=== PATIENT | male | born 1975 | race Caucasian/White ===

== ENCOUNTER 2018-03-06 08:47 | Emergency (ER) | payer MEDICAID, SELFPAY ==
[2018-03-06 08:48] VITALS: BP 148/103; PULSE 115; RESP 16; TEMP 36.4; O2SAT 96; BMI 36.2
--- NOTE | 2018-03-06 09:10 | ED.DCSUM_ITS ---
- ER Visit Summary Date of Service: 03/06/18 Chief Complaint: [] Abdominal pain History of Present Illness: The patient is a 42 M [] complaining of lower abdominal pain from a newly is covered hernia in the inguinal area. Patient denies nausea/vomiting, denies constipation, denies fevers. Reports having a normal bowel movement this morning. 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 He reports he was seen at the urgent care and was referred to a local general surgeon. He has a reported first appointment with that surgeon in 6 days (Dr. Rice). Physical Examination: [] Afebrile, vital signs stable. 42-year-old male no acute distress. Cardiovascular exam is regular rate and rhythm. Lungs are clear to auscultation. Abdomen is soft and nontender. Examination of the inguinal area reveals a small reducible hernia that is mildly tender to palpation. There is a localized tinea cruris rash in the affected area. Remainder of exam is unremarkable. Test Results: [] None. Emergency Department Course and Treatment: [] Patient given naproxen orally for analgesia and instructed to apply ice packs frequently to the affected area. He was instructed to return should his symptoms worsen including pain, nausea/vomiting, constipation. He was instructed to keep his surgical appointment for this coming week. Prescription for naproxen was provided for analgesia as needed. Treatment Plan: [] Follow-up with general surgeon. Naproxen for pain. Disposition: [] Discharge, stable. Impression: [] Reducible inguinal hernia This note was generated with [employer] dictation software. It may contain incorrect words, spelling, and punctuation that were not noted in review of the chart prior to signing ED Disposition - Plan for ED Patient: Chief Complaint: Abd Pain Referrals: Krystle Albright PA [Primary Care Provider] -
--- NOTE | 2018-03-06 09:10 | ED.DEP ---
ED Disposition - Plan for ED Patient: Disposition: Home or Assisted Living Chief Complaint: Abd Pain Instructions: What Is a Hernia? Prescriptions: Naproxen [Naprosyn] 500 mg PO BID PRN PRN #20 tab PRN Reason: Pain Referrals: Krystle Albright PA [Primary Care Provider] -
[2018-03-06] MEDS: Naproxen 500 MG Tablet PO (09:18)
[2018-03-06 09:23] VITALS: BP 134/88; PULSE 72; RESP 16; O2SAT 98
== END 2018-03-06 10:04 | disposition home or self-care (01) ==
LOC: ED 09:23
PROVIDERS: Emergency Provider Emergency Medicine; Family Provider Physician Assistant; PCP Physician Assistant
DX: K40.90 Unilateral inguinal hernia, without obstruction or gangrene, not specified as recurrent (principal); B35.6 Tinea cruris; E11.9 Type 2 diabetes mellitus without complications; Z79.84 Long term (current) use of oral hypoglycemic drugs; Z79.899 Other long term (current) drug therapy; Z72.0 Tobacco use
CPT/HCPCS: 99283

== ENCOUNTER 2018-05-27 16:00 | Emergency (ER) | payer MEDICAID, SELFPAY ==
[2018-05-27 16:01] VITALS: BP 148/91; PULSE 100; RESP 18; TEMP 36.8; O2SAT 95; BMI 35.6
--- NOTE | 2018-05-27 16:34 | ED.VISSUMM ---
- ER Visit Summary Date of Service: 05/27/18 Chief Complaint: Abscess superior left buttock History of Present Illness: The patient is a 43 M who presents because of abscess left buttock region. He states the area is been incised for prior times. He denies fever, chills night sweats. Eyes a traumatic fever, murmur, SBE or being immune suppressed. He states he is compliant with his medication. He does not check his blood sugar on regular basis. He denies polyuria, polydipsia, frequency, urgency or change in vision. Patient states he wants antibiotics. Patient was informed treatment for an abscess especially since there is no evidence cellulitis is incision and drainage. If he will not consent to I&D he was informed that he would sign AGAINST MEDICAL ADVICE since the treatment of choice for an abscess is I&D. Patient informed me that he is going to the [place] and would like to swim. He was informed whether the area is incised or not since it appears that it may spontaneously open he should not be in a pond or small leak. Physical Examination: Vital signs are noted. He is afebrile. There is an abscess superior medial aspect of the left buttocks near the gluteal crease. This is not a pilonidal cyst or abscess. There is no evidence of cellulitis. The area is tender to light touch. HEENT exam is unremarkable. Heart is regular without murmur, gallop or rub. S1 and S2 are normal. Lungs are clear to auscultation with good movement of air bilaterally. Test Results: None Emergency Department Course and Treatment: We will have patient sign consent for I&D. I was informed at 1638 the patient wishes to receive medicine for light sedation. She was informed that sedation is not an option since he drank prior to arrival. Furthermore the area of involvement is less than 1 cm and local anesthesia is appropriate. The area was anesthetized with 2.5 cc normal saline. An incision was made with drainage of approximately 1 cc of purulent material. Blunt dissection was undertaken. There is no surrounding induration or erythema to suggest cellulitis. The cavity is small. We will have nurse apply dressing and since there is no evidence cellulitis he has no systemic symptoms antibiotics were not prescribed. Treatment Plan: Appropriate home-going instructions for incision and drainage of subcutaneous abscess Disposition: Discharged home in stable improved condition Impression: Small subcutaneous left buttocks abscess This note was generated with Dragon dictation software. It may contain incorrect words, spelling, and punctuation that were not noted in review of the chart prior to signing ED Disposition - Plan for ED Patient: Disposition: Home or Assisted Living Chief Complaint: Abscess Instructions: ED Abscess IandD Referrals: Krystle Albright PA [Primary Care Provider] - As Needed Omi Rice MD [STAFF PHYSICIAN] - 2 Days for wound check
== END 2018-05-27 17:18 | disposition home or self-care (01) ==
PROVIDERS: Emergency Provider Emergency Medicine; Family Provider Physician Assistant; PCP Physician Assistant
DX: L02.31 Cutaneous abscess of buttock (principal); E11.9 Type 2 diabetes mellitus without complications; E66.9 Obesity, unspecified; Z79.84 Long term (current) use of oral hypoglycemic drugs
CPT/HCPCS: 10060; 10080; 99283

== ENCOUNTER 2018-08-15 22:14 | Emergency (ER) | payer SELFPAY ==
[2018-08-15 22:15] VITALS: BP 139/84; PULSE 75; RESP 15; TEMP 36.7; BMI 34.7
--- NOTE | 2018-08-15 23:27 | ED.VISSUMM ---
- ER Visit Summary Date of Service: 08/15/18 Chief Complaint: Right knee pain History of Present Illness: The patient is a 43 M presenting for evaluation secondary to right knee pain. Patient reports that over the course of the last 3-4 days he has had a onset of right-sided knee pain. He reports that this feels similar to when he injured his meniscus. He reports that he has had meniscus surgery in both knees as recently as 10 years ago. Patient reports that this pain was atraumatic, and is associated with swelling that is worse throughout the course of the day. Denies any presence of fevers chills night sweats recent injections IV drug use or recent surgeries. Patient states he has been using a wrap as well as ibuprofen for this with some minimal relief. Physical Examination: Physical exam unremarkable except for examination of the right lower extremity. 2+ posterior tibial pulses bilaterally symmetric. Right knee exam shows a minimal joint effusion with no evidence of overlying warmth or erythema. No pain with short arc range of motion. There is some medial joint line tenderness. No evidence of laxity with Fabiola posterior drawer varus or valgus stress. Remainder of physical otherwise unremarkable. Emergency Department Course and Treatment: Patient presented for evaluation secondary to right knee pain. He has normal vital signs, and no stigmata of a infected joint I do not believe the workup for that is necessary. He does have a mild joint effusion, and this seems more soft tissue especially since there was not any sort of injury mechanism associated with this. Patient will be provided with a course of anti-inflammatories and follow-up with orthopedics for more definitive imaging as he likely needs MRI to evaluate his soft tissue structures in his knee. Patient was referred to Dr. Jeffrey Pitts. Disposition: Discharge Impression: 1. Right knee sprain This note was generated with [employer] dictation software. It may contain incorrect words, spelling, and punctuation that were not noted in review of the chart prior to signing ED Disposition - Plan for ED Patient: Disposition: Home or Assisted Living Chief Complaint: Lower Extremity Injury Diagnosis: Right knee sprain Instructions: ED Meniscal Injury Knee Poss Prescriptions: Naproxen [Naprosyn] 500 mg PO BID PRN #20 tab Referrals: Krystle Albright PA [Primary Care Provider] - Jeffrey Pitts MD [STAFF PHYSICIAN] - As soon as possible
[2018-08-15 23:51] VITALS: PULSE 82; RESP 20
[2018-08-15] MEDS: HYDROcodone Bitartrate/Apap 5/325 Tablet PO (23:51)
== END 2018-08-16 00:04 | disposition home or self-care (01) ==
PROVIDERS: Emergency Provider Emergency Medicine; Family Provider Physician Assistant; PCP Physician Assistant
DX: S83.91XA Sprain of unspecified site of right knee, initial encounter (principal); X58.XXXA Exposure to other specified factors, initial encounter; Y93.9 Activity, unspecified; Y92.9 Unspecified place or not applicable; Y99.9 Unspecified external cause status; E11.9 Type 2 diabetes mellitus without complications; Z79.84 Long term (current) use of oral hypoglycemic drugs
CPT/HCPCS: 99282

== ENCOUNTER 2019-08-05 16:41 | Emergency (ER) | payer SELFPAY ==
[2019-08-05 16:41] VITALS: BP 117/70; PULSE 93; RESP 16; TEMP 36.6; O2SAT 98; BMI 34.7
--- NOTE | 2019-08-05 16:45 | ED.VIS.GEN ---
History of Present Illness Chief Complaint: Upper Extremity Injury Informant: Patient Onset: Today Context: Sudden Onset Timing: Continuous Current Severity: Moderate Maximum Severity: Moderate Narrative: Patient is right-hand dominant male who presents with injury to his right fifth finger. Patient states he was climbing out of a front perforator loader. He lost his balance and slipped. He struck the end of his right hand. He states he felt like something popped. Since then, he is a little pain in the pinky and difficulty extending it because of pain. Patient is otherwise healthy. He denies other injury. He did not strike his head. He denies loss of consciousness. He presented here immediately. Prior similar symptoms: No Recent Illness/Hospitalization: No Past Medical History - Allergies and Home Meds Allergies/Adverse Reactions: Allergies No Known Allergies Allergy (Verified 08/15/18 22:17) Primary Care Physician: Jeffrey Pitts MD [STAFF PHYSICIAN] - Prior records reviewed: Yes Past Medical History: None Smoking Status: Current every day smoker Review of Systems General: Denies: Chills, Fever, Sweats Eyes: Denies: Visual changes - bilaterally, Diplopia ENT: Denies: Rhinorrhea, Sore throat Cardiovascular: Denies: Chest pain, Palpitations Respiratory: Denies: Dyspnea, Cough, Dyspnea on exertion Gastrointestinal: Denies: Abdominal pain, Nausea, Vomiting, Diarrhea, Melena, Hematochezia Genitourinary: Denies: Dysuria, Hematuria, Frequency Musculoskeletal: Denies: Back pain, Extremity Pain Skin: Denies: Rash, Wounds Neurological: Denies: Headache, Weakness, Numbness Physical Exam Vital Signs/Narrative: Vital Signs Temp Pulse Resp BP Pulse Ox 08/05/19 16:41 98 F 93 16 117/70 98 Inital Vital Signs reviewed: Yes General: Well nourished, Well developed, No Acute Distress Head: Normocephalic, Atraumatic Eyes: Perrl, EOMI ENT: Moist mucous membranes, No rhinorrhea Neck: Supple, Nontender Cardiovascular: Regular rate, Regular rhythm, No murmurs Respiratory: No distress, CTA bilaterally, Chest nontender Abdomen: Soft, Nontender, Nondistended, Normal bowel sounds Back: Nontender, Normal Inspection Extremities: No edema, Tenderness, - - Tenderness over the right fifth phalanges. Held in flexion. Cap refill normal. Two-point preserved. Skin: Normal color, No rash Neurological: Alert, Oriented x3, Cranial nerves II-XII grossly intact, Normal Strength, Normal Sensation Psychological: Normal affect, Normal Mood Diagnostic/Tx/Re-eval Clinical Impression(s) from Imaging Studies Hand X-Ray 08/05/19 16:50 IMPRESSION: Flexion deformity at the PIP joint fifth finger. This suggests mild volar subluxation at the PIP joint. Correlate clinically at 1706 Reported and signed by: Alondra Olsen DO Electronically Signed: Alondra Olsen DO at 17:05 EDT Tel , Service support , - Medical Decision Making Clinically, the patient's symptoms did seem most consistent with dislocation at the PIP joint. He was held in flexion. His sensation was preserved. X-rays were difficult to interpret given the flexion, but looks like subluxation versus dislocation. His clinical exam was consistent with dislocation. Patient was prepped in a sterile fashion. A digital block was performed with 9 cc of bupivacaine at the base of the fifth finger. Once the patient had anesthesia, it was reduced. He had immediate pain relief and was able to flex and extend without issue. The patient was placed in a AlumaFoam splint. He will be given outpatient orthopedic follow-up. He will be discharged home. Impression 1. Dislocation right fifth PIP with reduction 2. Digital block ED Disposition - Plan for ED Patient: Instructions: Dislocated Finger Prescriptions: Hydrocodone Bitart/Apap 5-325 [[place] 5MG-325MG] 1 tab PO Q6H PRN PRN 2 Days #6 tab PRN Reason: Pain Prescription Printed Referrals: Jeffrey Pitts MD [STAFF PHYSICIAN] -
--- NOTE | 2019-08-05 16:50 | RAD_ITS ---
HISTORY:right hand pain. attention 5th digit right hand pain. attention 5th digit COMPARISON: None FINDINGS: # of images incl. paperwork: 3 XR Hand Min 3 Views: Right BONE AND JOINTS: there is no evidence of an acute fracture. There is a flexion deformity that is seen at the proximal interphalangeal joint of the fifth finger with questionable mild volar subluxation. Correlate clinically Suspect prior trauma involving the ulnar styloid SOFT TISSUES: Unremarkable. No radiopaque foreign body. RAD/Hand Min 3 Views IMPRESSION: Flexion deformity at the PIP joint fifth finger. This suggests mild volar subluxation at the PIP joint. Correlate clinically at 1706 Reported and signed by: Alondra Olsen DO Electronically Signed: Alondra Olsen DO at 17:05 EDT Tel , Service support ,
[2019-08-05] MEDS: HYDROcodone Bitartrate/Apap 5/325 Tablet PO (17:03)
[2019-08-05] MEDS: Bupivacaine Mpf 0.5% 30 ML VIAL INFILT (17:48)
== END 2019-08-05 17:49 | disposition home or self-care (01) ==
LOC: ED 17:19
PROVIDERS: Emergency Provider Emergency Medicine; Family Provider Physician Assistant; PCP Physician Assistant
DX: S63.286A Dislocation of proximal interphalangeal joint of right little finger, initial encounter (principal); W01.10XA Fall on same level from slipping, tripping and stumbling with subsequent striking against unspecified object, initial encounter; Y93.9 Activity, unspecified; Y92.9 Unspecified place or not applicable; Y99.9 Unspecified external cause status; F17.200 Nicotine dependence, unspecified, uncomplicated
CPT/HCPCS: 26770; 73130; 99283

== ENCOUNTER 2020-01-08 18:47 | Emergency (ER) | payer SELFPAY ==
[2020-01-08 18:47] VITALS: BP 161/108; PULSE 95; RESP 18; TEMP 37.3; O2SAT 96; BMI 29.0
--- NOTE | 2020-01-08 20:05 | ED.DEP ---
ED Disposition - Plan for ED Patient: Instructions: Dental Pain Prescriptions: Hydrocodone Bitart/Apap 5-325 [[place] 5MG-325MG] 1 tablet PO Q6H PRN PRN 2 Days #6 tablet PRN Reason: Pain Referrals: Krystle Albright PA [Primary Care Provider] -
--- NOTE | 2020-01-08 20:17 | ED.VISSUMM ---
- ER Visit Summary Date of Service: 01/08/20 Chief Complaint: Dental pain History of Present Illness: The patient is a 44 M presenting with dental pain. This started on . He was seen by his dentist on and started on amoxicillin for gingivitis. Continues to have pain in the left lower teeth. He has been taking ibuprofen at home. He denies fever or other complaints. Has a follow-up appointment with his dentist on Friday. Physical Examination: Vitals are stable. Patient is afebrile. Alert no acute distress. HEENT exam left lower molar tender to palpation with no surrounding fluctuance. No sublingual edema. Neck is supple. Lungs are clear and equal bilaterally. Heart is regular rate and rhythm. Extremities are unremarkable. Skin is warm and dry. Remainder of exam is unremarkable. Emergency Department Course and Treatment: Patient was given short course of [place]. Advised to continue amoxicillin until complete. Advised to follow-up with his dentist. Advised return to ED for worsening complaints. Disposition: Discharge home Impression: Odontalgia This note was generated with [employer] dictation software. It may contain incorrect words, spelling, and punctuation that were not noted in review of the chart prior to signing ED Disposition - Plan for ED Patient: Instructions: Dental Pain Prescriptions: Hydrocodone Bitart/Apap 5-325 [[place] 5MG-325MG] 1 tab PO Q6H PRN PRN 2 Days #6 tab PRN Reason: Pain Prescription Printed Referrals: Krystle Albright PA [Primary Care Provider] -
--- NOTE | 2020-01-08 21:02 | ED.RN ---
PATIENT LEFT WITHOUT RCVNG NORCO X 1 TAB
[2020-01-08 21:03] VITALS: PULSE 95; RESP 18; O2SAT 96
== END 2020-01-08 21:04 | disposition home or self-care (01) ==
LOC: ED 19:22
PROVIDERS: Emergency Provider Emergency Medicine; PCP Physician Assistant
DX: K08.89 Other specified disorders of teeth and supporting structures (principal); Z72.0 Tobacco use
CPT/HCPCS: 99282

== ENCOUNTER 2021-10-29 11:36 | Emergency (ER) | payer SELFPAY ==
[2021-10-29 11:37] VITALS: BP 145/94; PULSE 113; RESP 16; TEMP 36.1; O2SAT 99; BMI 29.0
--- NOTE | 2021-10-29 13:51 | EDS_ITS ---
HPI History of Present Illness HPI Narrative: Patient presents with pain and swelling to his right elbow and forearm that has been getting worse over the past 5 days. Patient noted some redness and warmth over the medial aspect of his right elbow. 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 Patient states that he woke up 5 days ago and started having pain in his right elbow. Patient denies any fevers or chills. Patient denies any discharge or drainage. Patient states the pain is sharp and burning. Patient states it is worse with movement. Patient denies any paresthesias or weakness. Patient denies any trauma or injury. Chief Complaint: Upper Extremity Injury Informant: patient Onset/Context/Timing Onset: Days (5) Context: Gradual Onset Timing: Continuous Quality of Pain: Sharp and Burning Location: Right elbow Worsened by: Movement Relieved by: Nothing Associated Symptoms Associated Symptoms: Negative for Parasthesia and Weakness PFSH [facility] Medical History (Updated 10/29/21 @ 16:[address] Aiden Joseph DO) Diabetes Home Medications glimepiride 4 mg PO DAILY 05/27/18 [History Last Taken Unknown] metformin 500 mg PO DAILY 05/27/18 [History Last Taken Unknown] cephalexin 500 mg PO Q6 #40 capsule 10/29/21 [Rx Last Taken Unknown] Allergy/AdvReac Type Severity Reaction Status Date / Time No Known Allergies Allergy Verified 10/29/21 11:37 Surgical History History of back surgery Hx of knee surgery Social History Smoking Status: Current every day smoker tobacco type: cigarettes ROS ROS ED Constitutional Constitutional ED: Denies chills or fever(s) Eyes Eyes: Denies blurry vision or change in vision ENT ENT ED: Denies rhinorrhea or sore throat Cardiovascular Cardiovascular: Denies chest pain or palpitations Respiratory/Chest Respiratory/Chest: Denies cough or dyspnea Gastrointestinal Gastrointestinal: Denies nausea or vomiting Genitourinary Genitourinary ED: Denies dysuria or hematuria Musculoskeletal Musculoskeletal: Reports back pain; Denies neck pain Integumentary Denies abscess or rash Neurologic Neurologic: Denies headache(s) or weakness Allergic/Immunologic Allergic/Immunologic ED: Denies mouth swelling or urticaria EXAM Physical Exam Const Vital Signs: 10/29/21 11:37 Temperature 96.9 F L Temperature Source Temporal Pulse Rate 113 H Respiratory Rate 16 Blood Pressure 145/94 H Blood Pressure Mean 111 Pulse Ox 99 Oxygen Delivery Method Room Air Positive well nourished and well developed General Appearance ED: well developed Neck full ROM and supple Extremity Extremity Narrative: There is erythema and warmth of the medial aspect of the right elbow and forearm. There is no foreign body visualized. There is no puncture wound. There is no laceration. There is no evidence of any abscess. There is no induration. Range of motion was slightly limited in complete flexion and complete extension of the right elbow secondary to pain. Radial pulses are equal bilateral. Sensation was intact to light touch in all digits. Capillary refill was less than 2 seconds in all digits. Neuro oriented x3, CN's II-XII intact bilaterally, moves all extremities, no focal motor deficits and no sensory deficits noted Sensorium / Orientation: alert Psych mental status grossly normal MDM MDM MDM Narrative Medical decision making narrative: Patient was given a dose of Ancef here. CBC and basic metabolic profile were within normal limits. X-rays of the right elbow were obtained. There are 3 views. On my interpretation, there is no acute foreign body or fracture or dislocation. Radiologist also interpreted the x-rays and agrees. Patient was advised of his findings. Patient was given a prescription for Keflex. Patient was instructed to ice and elevate the right arm. Patient was instructed to follow-up with his primary care physician in 5 to 7 days. Patient understood and was agreeable with the plan. All questions were answered. Lab Data Attestation: I reviewed the patient's lab results. Discharge Plan Triage Chief Complaint: Upper Extremity Injury ED Provider: Aiden Joseph Dx/Rx/DC Orders Clinical Impression: Cellulitis of right elbow Instructions: ED Cellulitis Prescriptions: New cephalexin [cephalexin] 500 MG capsule 500 mg PO Q6 Qty: 40 RF: 0 No Action glimepiride 4 MG tablet 4 mg PO DAILY RF: 0 metformin 500 MG tablet 500 mg PO DAILY RF: 0 Primary Care Provider: Krystle Albright Referrals: Krystle Albright PA [Primary Care Provider] - 5-7 Days Disposition Disposition: Home, Self Care
[2021-10-29 14:39] VITALS: RESP 16
[2021-10-29 14:42] LABS: Absolute Lymphocyte Count 1.03 X10^3/uL (0.83-4.51); Absolute Neutrophil Count 3.1 X10^3/uL (2.0-7.7); Basophil# 0.06 X10^3/uL; Basophil% 1.3 % (0-1); Eosinophil# 0.04 X10^3/uL; Eosinophils% 0.8 % (0-5); Hematocrit 41.6 % (40-54); Hemoglobin 14.6 g/dL (13.0-16.5); Lymphocyte # 1.03 X10^3/ul (0.83-4.51); Lymphocyte % 21.8 % (19-41); Mean Corp Hgb Conc 35.1 g/dL (32-36); Mean Corpuscular Hgb 30.7 pg (27.0-32.0); Mean Corpuscular Volume 87.6 fL (80-94); Mean Platelet Vol. 9.5 fl (6.2-12.0); Monocyte# 0.49 X10^3/uL; Monocyte% 10.4 % (0-10); NRBC Flagged by Analyzer 0 % (0-5); Neutrophil # 3.07 X10^3/uL (2.7-7.7); Neutrophil % 65.1 % (47-70); Platelet Count 211 K/mm3 (150-450); RBC Distribution Width CV 11.7 % (11.6-14.6); RBC Distribution Width SD 37.6 fl (35.1-43.9); Red Blood Count 4.75 M/mm3 (4.6-6.2); White Blood Count 4.7 K/mm3 (4.4-11.0)
[2021-10-29] MEDS: Cefazolin 1 GM/50 ML BAG IV (14:42)
[2021-10-29 14:57] LABS: Anion Gap 6 (5-15); BUN 13 mg/dL (7-18); Calcium,Total 9.1 mg/dL (8.5-10.1); Chloride 104 mmol/L (98-107); Creatinine, Serum 0.81 mg/dL (0.70-1.30); EST Glomerular Filtration Rate 109 mL/min (>60); Est Glom Filt Rate - Afr Amer 132 mL/min (>60); Estimated Creatinine Clearance 131.52 ml/min; Glucose 197 mg/dL (74-106); Potassium 3.4 mmol/L (3.5-5.1); Sodium Level 138 mmol/L (136-145)
--- NOTE | 2021-10-29 15:00 | RAD_ITS ---
STUDY: X-RAY - RIGHT ELBOW REASON FOR EXAM: Male, 46 years old. Injury/Pain TECHNIQUE: 3 view(s) of the elbow. COMPARISON: None. FINDINGS: Normal visualized humerus, radius and ulna. Normal radiocapitellar and ulnotrochlear articulations. The soft tissue structures are unremarkable. RAD/Elbow min 3 Views IMPRESSION: Normal x-ray examination of the elbow. Electronically Signed: Sy Leonard MD at 15:29 EST , Service support ,
--- NOTE | 2021-10-29 15:23 | ED.RN ---
PT MOVED FOR TRAUMA 1 TO [facility] 1 D/T AND UNRESPONSIVE PT THAT [facility] IS OUT ON. PT COMPLAINING AND REFUSING TO SIT IN THE [facility] D/T BACK SURGERY, THIS RN APOLOGIZED. PT CONTINUES TO REFUSE TO SIT.
--- NOTE | 2021-10-29 15:26 | ED.RN ---
PT IS CURRENTLY SITTING IN CHAIR.
[2021-10-29 16:36] VITALS: RESP 18
== END 2021-10-29 16:37 | disposition home or self-care (01) ==
PROVIDERS: Emergency Provider Emergency Medicine; PCP Physician Assistant
DX: L03.113 Cellulitis of right upper limb (principal); F17.210 Nicotine dependence, cigarettes, uncomplicated
CPT/HCPCS: 73080; 80048; 85025; 96365; 99284; J7050; A4216

== ENCOUNTER 2022-11-19 20:16 | Emergency (ER) | payer OTHER, SELFPAY ==
[2022-11-19 20:17] VITALS: BP 163/95; PULSE 90; RESP 15; TEMP 36.2; O2SAT 97; BMI 26.4
--- NOTE | 2022-11-19 20:44 | EDS_ITS ---
HPI History of Present Illness Chief Complaint: Cellulitis Narrative Narrative: 47-year-old male past medical history of diabetes presents with pain and swelling of his right foot at the base of his third and fourth digits. He denies any fevers or chills. No nausea or vomiting. He has had cellulitis in areas other than his foot for which he has been treated with cephalexin. He states over the last 2 days he noticed swelling and mild redness in between his toes, mainly between toes numbers 3 and 4 and pain on the ball of his foot in that area. It feels swollen to him. It is worse with weightbearing and walking. He denies any injury to the area. [facility] Medical History Diabetes Home Medications glimepiride 4 mg tablet 4 mg PO DAILY 05/27/18 [History Last Taken Unknown] metformin 500 mg tablet 500 mg PO DAILY 05/27/18 [History Last Taken Unknown] cephalexin 500 mg capsule 500 mg PO Q6 #40 CAPSULES 10/29/21 [Rx Last Taken Unknown] cephalexin 500 mg tablet 500 mg PO 4X/DAY #40 tabs 11/19/22 [Rx Last Taken Unknown] Allergy/AdvReac Type Severity Reaction Status Date / Time No Known Allergies Allergy Verified 11/19/22 20:20 Surgical History History of back surgery Hx of knee surgery Social History Smoking Status: Current every day smoker tobacco type: cigarettes ROS ROS ED ROS Narrative Constitutional: No fever, no chills. HEENT: No sore throat. No neck pain. No loss of vision. No rhinorrhea. Cardiovascular: No chest pain. No palpitations. No pedal edema. Respiratory: No cough, no shortness of breath. Abdominal: No abdominal pain. No nausea. No vomiting. Genitourinary: No dysuria. No hematuria. Musculoskeletal: No myalgias. Right foot pain and swelling at base of third and fourth digits. Neurologic: No headaches. No dizziness. No lightheadedness. Skin: No rash. No change in color. Psychiatric: No depression. No anxiety. EXAM Physical Exam Narrative Exam Narrative: Afebrile. Vital signs noted. Nontoxic-appearing. HEENT: Normocephalic. Atraumatic. PERRL, EOMI. Neck soft and supple. No point tenderness or step off. Cardiovascular: Regular rate and rhythm. No murmurs, rubs, or gallops appreciated. Respiratory: No tachypnea. Lungs clear to auscultation bilaterally. Gastrointestinal: Abdomen soft, nontender, with normoactive bowel sounds. No rebound or guarding. Neurological: Awake. Alert. Nonfocal, nonlateralizing. Skin: No rash. Normal color. No pallor. In between the digits on his right foot appears mild skin breakdown and erythema with tenderness to palpation. No purulent drainage. Good capillary refill. Musculoskeletal: No pedal edema. Full range of motion extremities. Palpable dorsalis pedis pulse right foot. Const Vital Signs: 11/19/22 20:17 Temperature 97.2 F L Temperature Source Temporal Pulse Rate 90 Respiratory Rate 15 Blood Pressure 163/95 H Blood Pressure Mean 117 Pulse Ox 97 Oxygen Delivery Method Room Air MDM MDM MDM Narrative Medical decision making narrative: I feel that the patient may have mild tinea pedis which caused skin breakdown between his toes which was a portal of entry for his cellulitis. He has mild erythema in between the toes and extends minimally into the foot. There is no crepitance and I feel that he can be treated with cephalexin. Given the hour the day, he was given his dose here in the emergency department and a prescription written for the next 10 days to take 4 times daily. He will follow-up with his primary care provider. I feel he can be discharged safely home with follow-up. Return instructions were reviewed. Disposition is discharged home in stable condition. Discharge Plan Triage Chief Complaint: Cellulitis ED Provider: Shayne Duffy Dx/Rx/DC Orders Clinical Impression: Cellulitis of foot, right, Tinea pedis Instructions: ED Cellulitis, ED Athlete's Foot Prescriptions: New cephalexin 500 mg tablet 500 mg PO 4X/DAY Qty: 40 0RF No Action glimepiride 4 MG tablet 4 mg PO DAILY metformin 500 MG tablet 500 mg PO DAILY cephalexin [cephalexin] 500 MG capsule 500 mg PO Q6 Qty: 40 0RF Primary Care Provider: Krystle Albright Referrals: Krystle Albright PA [Primary Care Provider] - 5-7 Days Disposition Disposition: Home, Self Care
[2022-11-19] MEDS: Cephalexin 250 MG Capsule 500 MG PO (20:52)
== END 2022-11-19 20:56 | disposition home or self-care (01) ==
PROVIDERS: Emergency Provider Emergency Medicine; PCP Physician Assistant; Visit Provider Emergency Medicine
DX: L03.115 Cellulitis of right lower limb (principal); B35.3 Tinea pedis; F17.210 Nicotine dependence, cigarettes, uncomplicated
CPT/HCPCS: 99283

== ENCOUNTER 2022-12-18 10:58 | Emergency (ER) | payer OTHER, SELFPAY ==
[2022-12-18 10:58] VITALS: BP 165/103; PULSE 56; RESP 18; TEMP 35.5; O2SAT 98; BMI 30.7
--- NOTE | 2022-12-18 11:24 | ED.VIS.LOWEX ---
HPI History of Present Illness Chief Complaint: Lower Extremity Injury Informant: patient Narrative Narrative: Persistent pain right foot for the past 3 weeks. He was seen emergency department treated for cellulitis. There is no clear injuries. Concern potential foreign body. No imaging at that time. He was put on antibiotics for which she finished the redness improved pain has continued he is a diabetic. Unable to get in with his PCP. Using ibuprofen no relief. Reviewing records from the last month from notes there is erythema concerning for slight tinea with cracking of skin which was concerning at that time. He is on a 10-day course of Keflex. [facility] Medical History Diabetes Home Medications glimepiride 4 mg tablet 4 mg PO DAILY 05/27/18 [History Last Taken Unknown] metformin 500 mg tablet 500 mg PO DAILY 05/27/18 [History Last Taken Unknown] cephalexin 500 mg capsule 500 mg PO Q6 #40 CAPSULES 10/29/21 [Rx Last Taken Unknown] cephalexin 500 mg tablet 500 mg PO 4X/DAY #40 tabs 11/19/22 [Rx Last Taken Unknown] cephalexin 500 mg capsule 500 mg PO Q6 #40 caps 12/18/22 [Rx Last Taken Unknown] Allergy/AdvReac Type Severity Reaction Status Date / Time No Known Allergies Allergy Verified 12/18/22 11:00 Surgical History History of back surgery Hx of knee surgery Social History Smoking Status: Current some day smoker tobacco type: cigarettes ROS ROS ED Constitutional Constitutional ED: Denies chills, fever(s) or sweats Eyes Eyes: Denies change in vision ENT ENT ED: Denies dysphagia or sore throat Cardiovascular Cardiovascular: Denies chest pain, leg edema, palpitations or racing heartbeat Respiratory/Chest Respiratory/Chest: Denies cough, dyspnea or dyspnea on exertion Gastrointestinal Gastrointestinal: Denies abdominal pain, diarrhea, nausea or vomiting Genitourinary Genitourinary ED: Denies dysuria, hematuria or urinary frequency Musculoskeletal Musculoskeletal: Reports extremity pain; Denies back pain or neck pain Integumentary Denies rash or wounds Neurologic Neurologic: Denies headache(s), paresthesias or weakness EXAM Physical Exam Const Vital Signs: 12/18/22 10:58 Temperature 96 F L Temperature Source Temporal Pulse Rate 56 L Respiratory Rate 18 Blood Pressure 165/103 H Blood Pressure Mean 123 Pulse Ox 98 Oxygen Delivery Method Room Air Positive well nourished and well developed General Appearance ED: well developed and NAD HEENT Reports moist mucous membranes normocephalic and atraumatic Eyes PERRL, EOMs intact bilaterally and conjunctivae normal General Eye ED: Yes normal appearance of both eyes Neck no lymphadenopathy and supple General: Negative for tenderness Chest Wall Chest: Negative for tenderness Resp normal respiratory effort and normal air movement Effort and Inspection: symmetric chest movement; Negative for respiratory distress Cardio regular rate, regular rhythm and no murmurs Peripheral Pulses: pulses 2+ throughout GI normal to inspection, nondistended, normoactive bowel sounds and non-tender Palpation: Negative for guarding or rebound tenderness present Back/Spine no CVA tenderness and no thoracic nor lumbar tenderness Extremity normal to inspection Extremity Narrative: Right foot: Plantar aspect at the fourth metatarsal tender to palpation. No puncturing, no gross foreign bodies. There is no current erythema or drainage no fluctuance. General Extremety ED: Yes tenderness; Negative for edema General Extremity: Negative for edema Neuro oriented x3 and no sensory deficits noted Sensorium / Orientation: awake and alert Skin no rashes or lesions noted and no wounds MDM MDM MDM Narrative Medical decision making narrative: There is no current erythema for concerns for cellulitis. Have his pain to the local area, differential could be retained foreign body with no infection at this time. Nonspecific foot pain also. X-ray right foot 3 views obtained. This was interpreted by myself shows no radiopaque foreign bodies. Discussed with the patient he will need podiatry follow-up. He states he would like to try another course of antibiotics due to help in him in the past. Risk and benefits with antibiotics. This was sent to his pharmacy podiatry follow-up given. Radiography Diagnostic Testing: Clinical Impression(s) from Imaging Studies Foot X-Ray 12/18/22 11:25 IMPRESSION: Normal x-ray examination of the foot. Electronically Signed: Sy Leonard MD at 12:11 EST , Discharge Plan Triage Chief Complaint: Lower Extremity Injury ED Provider: Demarcus Angela Dx/Rx/DC Orders Clinical Impression: Foot pain, right Instructions: ED Puncture Wound (Foot) Prescriptions: New cephalexin [cephalexin] 500 mg capsule 500 mg PO Q6 Qty: 40 0RF No Action glimepiride 4 MG tablet 4 mg PO DAILY metformin 500 MG tablet 500 mg PO DAILY cephalexin [cephalexin] 500 MG capsule 500 mg PO Q6 Qty: 40 0RF cephalexin 500 mg tablet 500 mg PO 4X/DAY Qty: 40 0RF Primary Care Provider: Krystle Albright Referrals: Kolby Blount DPM [Med Staff - Active Staff] - As soon as possible Krystle Albright PA [Primary Care Provider] - Activity Restrictions/Additional Instructions: X-ray foot does not show any radiopaque foreign bodies. Reported antibiotics help recently therefore taking understand the risks of side effects with antibiotics. Follow-up with Dr. Blount for further imaging or testing as an outpatient for possible foreign bodies. Disposition Disposition: Home, Self Care Discharge Date/Time: 12/18/22 12:37
--- NOTE | 2022-12-18 11:25 | RAD_ITS ---
STUDY: X-RAY - RIGHT FOOT CLINICAL: Male, 47 years old. 3 week history of pain and swelling. TECHNIQUE: 3 view(s) of the foot. COMPARISON: None. FINDINGS: Normal talus, calcaneus, and tarsal bones. Normal visualized subtalar, talonavicular, calcaneocuboid, tarsal and tarsometatarsal articulations. Normal metatarsi. Normal metatarsophalangeal joint of the great toe. Normal tibial and fibular sesamoid bones. Normal interphalangeal joint of the great toe. Normal phalanges of the great toe. Normal second through fifth metatarsophalangeal joints. Normal interphalangeal joints and phalanges of the lesser toes. The soft tissue structures are unremarkable. RAD/Foot min 3 Views IMPRESSION: Normal x-ray examination of the foot. Electronically Signed: Sy Leonard MD at 12:11 EST ,
== END 2022-12-18 12:37 | disposition home or self-care (01) ==
PROVIDERS: Emergency Provider Emergency Medicine; PCP Physician Assistant; Visit Provider Emergency Medicine
DX: M79.671 Pain in right foot (principal); E11.9 Type 2 diabetes mellitus without complications; F17.210 Nicotine dependence, cigarettes, uncomplicated
CPT/HCPCS: 73630; 99282

== ENCOUNTER 2025-08-03 02:19 | Emergency (ER) | payer OTHER, MEDICAID, SELFPAY ==
[2025-08-03 02:21] VITALS: BP 134/95; PULSE 104; RESP 18; TEMP 36.6; O2SAT 99; BMI 29.5
[2025-08-03 02:23] VITALS: BP 134/95; PULSE 104; RESP 18; TEMP 36.6; O2SAT 99
--- NOTE | 2025-08-03 02:38 | EDS_ITS ---
HPI History of Present Illness Chief Complaint: Bite Informant: patient and spouse/S.O. Narrative Narrative: Patient is a 50-year-old male with past medical history of [id number] diabetes. 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 He states that he believes he may have been bitten by a spider in the left ankle a few days ago because he noticed redness and swelling with pain in the area. He states he did not see anything bite him but has had similar events in the past from his work. He states he has been washing the area with soap and water and using Neosporin but the redness and pain is worsening and with concern for infection he comes in for evaluation [facility] Medical History Diabetes Home Medications ?Medication ?Instructions ?Recorded ?Last Taken ?Type glimepiride 4 mg tablet 4 mg PO DAILY 05/27/18 Unkno wn History metformin 500 mg tablet 500 mg PO DAILY 05/27/18 Unk nown History atorvastatin 10 mg tablet (Lipitor) 10 mg PO DAILY 02/22 Unknown History clindamycin HCl 300 mg capsule 300 mg PO 4X/DAY 10 day s #40 08/03/25 Unknown Rx (Cleocin HCl) CAPSULES oxycodone-acetaminophen 5 mg-325 1 tab PO Q6H PRN pain 3 days #12 08/03/25 Unknown Rx mg tablet (Endocet) tabs Allergy/AdvReac Type Severity Reaction Status Date / Time No Known Allergies Allergy Verified 08/03/25 02:21 Surgical History History of back surgery Hx of knee surgery Social History Smoking Status: Current some day smoker tobacco type: cigarettes ROS ROS ED Constitutional Constitutional ED: Denies chills or fever(s) Cardiovascular Cardiovascular: Denies chest pain Respiratory/Chest Respiratory/Chest: Denies cough or dyspnea Gastrointestinal Gastrointestinal: Denies abdominal pain, diarrhea, nausea or vomiting Musculoskeletal Musculoskeletal: Reports other Details: Positive left ankle pain Integumentary Reports other Details: Positive bite left ankle Neurologic Neurologic: Denies headache(s) Hematologic/Lymphatic Hematologic/Lymphatic: Denies easy bleeding or easy bruising EXAM Physical Exam Const Vital Signs: 08/03/25 02:21 08/03/25 02:23 08/03/25 02:44 Temperature 97.8 F 97.8 F 98 F Temperature Source Oral Oral Pulse Rate 104 H 104 H 98 Respiratory Rate 18 18 18 Blood Pressure 134/95 H 134/95 H 112/87 H Blood Pressure Mean 108 108 95 Pulse Ox 99 99 100 Oxygen Delivery Method Room Air Room Air Positive well nourished and well developed General Appearance ED: well developed HEENT HEENT Narrative: Normocephalic atraumatic Eyes PERRL and EOMs intact bilaterally General Eye ED: Negative for scleral icterus Neck supple Resp normal respiratory effort and clear to auscultation bilaterally Cardio regular rate and regular rhythm Extremity Extremity Narrative: Left lower extremity is neurovascularly intact. Along the posterior aspect of his left ankle are 2 excoriated circular wounds with developing scab formation. There is surrounding asymmetric erythema and warmth extending out roughly 1 cm from the wound. There is no obvious retained foreign body or insect or stinger present. There is no obvious induration or fluctuance noted. No discharge present. No lymphangitic streaking. Compartments are soft and compressible going against compartment syndrome. Neuro oriented x3, CN's II-XII intact bilaterally and no sensory deficits noted Sensorium / Orientation: alert Motor Exam: strength 5/5 throughout Psych mental status grossly normal Skin Skin Narrative: Lesions to the posterior aspect of the left ankle as documented above MDM MDM MDM Narrative Medical decision making narrative: Patient arrived to the ER afebrile. He stated he did not see anything bite him but based on his previous work events that this has happened and this feels similar nature. As he is a diabetic without improvement with standard topical care he has concern for developing infection. There is no obvious abscess noted and no signs of systemic infection as he does not have a fever or there is no findings for lymphangitic streaking. Patient also does not have compartment syndrome. I have low concern for Charcot joint or osteomyelitis based on his presentation as well and therefore I do not feel the need for imaging or laboratory study. Based on his history and exam the patient has cellulitis secondary to the insect bite but as he does not have findings for systemic infe ction there is no need for further workup and he can simply be placed on antibiotics and is otherwise safe for discharge History & Record Review Discussion w/independent historian: Patient and Significant other Discharge Plan Triage Chief Complaint: Bite ED Provider: Martin Hollis Dx/Rx/DC Orders Clinical Impression: Infected insect bite of ankle, History of tobacco use, Non-insulin dependent diabetes mellitus Instructions: Cellulitis Dc, ED Infected Insect Bite or Sting Prescriptions: New clindamycin HCl [Cleocin HCl] 300 mg capsule 300 mg PO 4X/DAY 10 Days Qty: 40 0RF oxycodone-acetaminophen [Endocet] 5-325 mg tablet 1 tab PO Q6H PRN (Reason: pain) 3 Days Qty: 12 0RF No Action glimepiride 4 MG tablet 4 mg PO DAILY metformin 500 MG tablet 500 mg PO DAILY atorvastatin [Lipitor] 10 mg tablet 10 mg PO DAILY Primary Care Provider: Care Physician,No Primary Referrals: Krystle Albright PA [Non-Staff] - Activity Restrictions/Additional Instructions: Your history and exam indicate you have an infected insect bite around your ankle. Take the prescribed medication as directed to help resolve this. It would typically take 2 to 3 days for the antibiotic to take effect. If you develop a fever or noticed lymphangitic streaking or the redness persist despite taking your antibiotic please return to the ER for repeat evaluation. Print Language: Martiniquais Disposition Disposition: Home, Self Care Discharge Date/Time: 08/03/25 02:46
--- OUTSIDE RECORDS SUMMARY | 2025-08-03 02:43 | XMS RPT_ITS | CCD ---
Author Organization [facility] Care Team Providers Care Multiple Wire Sawyer Name Role Phone MADINA CHILEL Attending Unavailable MADINA CHILEL Referring Unavailable No, Physician Primary Care Provider Unavailabl e NO, PHYSICIAN Primary Care Unavailable SHRUTHI MURILLO Attending Unavailable Vore II, Dr. Harsha Agee Attending Unav Krystle Stratton Primary Care Unavailable Shayne Duffy Attending Unavailable Krystle Albright Primary Care Unavailable Demarcus Angela Attending Unavailable Krystle Albright PA-C Primary Care Provider [phone] Krystle Albright PA-C Primary Care Provider [phone] OLIVIA RAWLS Referring Unavailable BOY ALBRIGHT Primary Care Unavailable OLIVIA RAWLS Referring Unavailable BOY ALBRIGHT Primary Care Unavailable OLIVIA RAWLS Attending Unavailable BOY ALBRIGHT Primary Care Unavailable BOY ALBRIGHT Primary Care Unavailable OLIVIA RAWLS Referring Unavailable Medications Current Medications Medication Drug Class(es) Dates Sig (Normalized) Sig (Original) Blood-Glucose Meter monitoring kit (1 source) Start: 09-03-2024 End: 09-04-2024 Blood-Glucose Meter monitoring kit Glucose Meter of Choice - Kit - Dx: Other DM Code E11.40 Insulin No Testing 4 times daily 1 Each 09/03/2024 09/04/2024 Active cephalexin 500 mg oral capsule (6 sources) Cephalosporin Antibacterial Start: 06-24-2023 End: 07-01-2023 take 1 capsule by mouth three times daily cephALEXin (KEFLEX) 500 mg capsule Take 1 capsule by mouth three times daily for 7 days. 21 capsule 0 06/24/2023 07/01/2023 Active Start: 11-19-2022 take 500 mg by mouth four times daily Cephalexin Active 500 MG PO 4 TIMES DAILY 40 November 19, 2022 12:00am Start: 10-29-2021 take 500 mg by mouth every six hours Cephalexin Active 500 MG PO EVERY 6 HOURS December 18, 2022 12:00am Comment on above: Take [address] [facility] three times daily for 7 days. COMPOUNDED PRESCRIPTION (12 sources) Start: 02-09-2018 COMPOUNDED PRESCRIPTION Check blood sugar in am fasting and before dinner 1 Device 02/09/2018 Active Start: 02-09-2018 COMPOUNDED PRE SCRIPTION Check blood sugar in am fasting and before dinner 1 Device 0 02/09/2018 Active Comment on above: Check blood sugar in am fasting and before dinner 0.5 ml dulaglutide 1.5 mg/ml auto-injector (11 sources) GLP-1 Receptor Agonist Start: 023 End: inject 0.75 mg by subcutaneous injection every week dulaglutide (TRULICITY) 0.75 mg/0.5 mL pen injector Indications: Type 2 diabetes mellitus with diabetic neuropathy, without long-term current use of insulin (HCC) Inject 0.75 mg subcutaneously one time a week. Inject dose once per week. Discard Pen After 4 Each 5 08/27/2024 02/23/2025 Active Comment on above: Inject 0.75 mg subcu taneously one time a week. Inject dose once per week. Discard Pen After DULoxetine 30 mg delayed release oral capsule (4 sources) Serotonin and Norepinephrine Reuptake Inhibitor Start: 024 End: 025 take 1 capsule by mouth once daily DULoxetine (CYMBALTA) 30 mg capsule Indications: Depressive disorder Take 1 capsule by mouth once daily. 90 capsule 3 08/30/2024 08/30/2025 Active Start: 06-15-2021 End: 04-21-2023 take 1 capsule by mouth once daily DULoxetine (CYMBALTA) 30 mg capsule Indications: Depressive disorder Take 1 capsule by mouth once daily. 30 capsule 06/15/2021 04/21/2023 Discontinued glimepiride 4 mg oral tablet (16 sources) Sulfonylurea Start: 02-24-2024 End: 08-27-2025 take 1 tablet by mouth once daily at breakfast glimepiride (AMARYL) 4 mg tablet Indications: Type 2 diabetes mellitus with diabetic neuropathy, without long-term current use of insulin ([facility]) Take 1 tablet by mouth daily with breakfast. 90 tablet 3 08/27/2024 08/27/2025 Active Start: 04-15-2023 End: 10-06-2023 take 1 tablet by mouth once daily at breakfast glimepiride (AMARYL) 4 mg tablet Indications: Type 2 diabetes mellitus with diabetic neuropathy, without long-term current use of insulin ([facility]) Take 1 tablet by mouth daily with breakfast. 90 tablet 0 10/06/2023 Active Start: 05-27-2018 take 4 mg by mouth once daily Glimepiride Active 4 MG PO DAILY May 26, 2018 11:00pm Comment on above: Take 1 tablet by iftikhar th daily with breakfast. glipiZIDE 5 mg oral tablet (1 source) Sulfonylurea Start: 06-08-20 End: 07-08-20 take 1 tablet by mouth twice daily before mealtime glipiZIDE (GLUCOTROL) 5 MG tablet Take 1 (one) tablet (5 mg total) by mouth 2 (two) times a day before meals . 60 tablet 0 06/08/2019 07/08/2019 Active 24 hr metFORMIN hydrochloride 500 mg extended release oral tablet (18 sources) Biguanide Start: 02-24-20 End: 08-27-20 take 2 tablets by mouth once daily at breakfast metFORMIN ER (GLUCOPHAGE XR) 500 mg 24 hr tablet Indications: Type 2 diabetes mellitus with diabetic neuropathy, without long-term current use of insulin (HCC) Take 2 tablets by mouth daily with breakfast. 60 tablet 07/02/2024 Active Start: 04-15-2023 End: 10-06-2023 take 2 tablets by mouth once daily at breakfast metFORMIN ER (GLUCOPHAGE XR) 500 mg 24 hr tablet Indications: Type 2 diabetes mellitus with diabetic neuropathy, without long-term current use of insulin (HCC) Take 2 tablets by mouth daily with breakfast. 180 tablet 0 10/06/2023 Active Start: 07-13-2021 End: 02-05-2022 take 2 tablets by mouth once daily at breakfast metFORMIN ER (GLUCOPHAGE XR) 500 mg 24 hr tablet Indications: Type 2 diabetes mellitus with diabetic neuropathy, without long-term current use of insulin ([facility]) Take 2 tablets by mouth daily with breakfast. 180 tablet 1 07/13/2021 02/05/2022 Discontinued Start: 05-27-2018 take 500 mg by mouth once mohan y Metformin Active 500 MG PO DAILY May 27, 2018 3:32pm Start: 06-19-2015 End: 05-27-2018 take 500 mg by mouth twice daily Metformin Discontinue d 500 MG PO TWICE A DAY 60 June 18, 2015 11:00pm May 27, 2018 3:32pm Comment on above: Take [address] [facility] daily with breakfast. rosuvastatin calcium 5 mg oral tablet (5 sources) HMG-CoA Reductase Inhibitor Start: 08-27-20 End: 08-27-20 take 1 tablet by mouth once daily rosuvastatin (CRESTOR) 5 mg tablet Indications: Diabetes mellitus due to underlying condition with hyperosmolarity without coma, without long-term current use of insulin (HCC) Take 1 tablet by mouth once daily. 90 tablet 3 08/27/2024 08/27/2025 Active Completed/Discontinued Medications Medication Drug Class(es) Dates Sig (Normalized) Sig (Original) acetaminophen 325 mg / HYDROcodone bitartrate 5 mg oral tablet (4 sources) Opioid Agonist Start: 01-08-2020 End: 01-10-2020 take 1 tablet by mouth every six hours as needed Hydrocodone-Acetami nophen Discontinued 1 TABLET PO EVERY 6 HOURS NEEDED 6 2 January 08, 2020 January 10, 2020 12:08am Start: 08-05-2019 End: 08-13-2019 take 1 tablet by mouth every six hours as needed Hydrocodone-Acetaminophen Discontinued 1 TABLET PO EVERY 6 HOURS NEEDED 6 2 August 05, 2019 August 12, 2019 11:10pm betamethasone 0.5 mg/ml / clotrimazole 10 mg/ml topical cream (1 source) Azole Antifungal, Corticosteroid Start: 07-13-2021 End: 07-27-2021 clotrimazole-betamethasone (LOTRISONE) cream Indications: Tinea pedis of left foot Apply 1 application to affected area twice daily for 14 days. UNTIL CLEAR FOR UP TO 2-3 WEEKS 15 g 1 07/13/2021 07/27/2021 betamethasone acetate-betameth asone sodium phosphate 6 mg (1 source) Start: 06-27-2023 End: 06-27-2023 betamethasone acetate-betamethasone sodium phosphate 6 mg meloxicam 15 mg oral tablet (1 source) Nonsteroidal Anti-inflammatory Drug Start: 06-15-2021 End: 04-15-2023 take 1 tablet by mouth once daily at mealtime meloxicam (MOBIC) 15 mg tablet Indications: Lumbar disc disorder with myelopathy Take 1 tablet by mouth once daily. With food. 30 tablet 06/15/2021 04/15/2023 Discontinued metaxalone 800 mg oral tablet (1 source) Start: 07-13-2021 End: 04-21-2023 take 1 tablet by mouth three times daily as needed for pain metaxalone (SKELAXIN) 800 mg tablet Indications: Post laminectomy syndrome Take 1 tablet by mouth three times daily as needed for pain. 15 tablet 2 07/13/2021 04/21/2023 Discontinued regular insulin, human 100 unt/ml injectable solution (1 source) Insulin Start: 06-08-2019 End: 06-08-2019 insulin regular (HumuLIN R, NovoLIN R) injection 3 Units 1000 ml sodium chloride 9 mg/ml injection (2 sources) Start: 06-08-2019 End: 06-08-2019 sodium chloride 0.9% (NS) bolus 1,000 mL Start: 06-08-2019 End: 06-08-2019 sodium chloride (PF) (NS) fl ush 5 mL Problems Active Problems Problem Classification Problem Date Documented Date Episodic/Chronic Diabetes mellitus with complications (20 sources) Type 2 diabetes mellitus; Translations: [Type 2 diabetes mellitus with diabetic neuropathy, unspecified] Onset: 03-08-2016 10-06-2023 Chronic Diabetes mellitus without complication (1 source) Type 2 diabetes mellitus without complications; Translations: [Type 2 diabetes mellitus without complications] Onset: 09-13-2022 Chronic Diabetes mellitus without complication (1 source) Hyperglycemia; Translations: [Hyperglycemia] Episodic Disorders of lipid metabolism (20 sources) Mixed hyperlipidemia; Translations: [Mixed hyperlipidemia] Onset: 03-08-2022 03-08-2022 Chronic Malaise and fatigue (2 sources) Fatigue; Translations: [Chronic fatigue, unspecified] Onset: 09-09-2024 08-27-2024 Chronic Mood disorders (15 sources) Depressive disorder; Translations: [Depressive disorder] Onset: 06-15-2021 06-15-2021 Chronic Mycoses (2 sources) Tinea pedis; Translations: [Tinea pedis] 11-27-2022 Episodic Other connective tissue disease (1 source) Foot pain; Translations: [Pain in right foot] 12-18-2022 Episodic Other connective tissue disease (1 source) Pain in right foot; Translations: [Pain in right foot] Onset: 12-29-2022 Episodic Other connective tissue disease (1 source) Other specified soft tissue disorders; Translations: [Other specified soft tissue disorders] Onset: 12-06-2022 Episodic Other non-traumatic joint disorders (3 sources) Pain in right knee; Translations: [Pain in joint, lower leg] 06-24-2023 Episodic Other nutritional; endocrine; and metabolic disorders (12 sources) Cholesterol level - finding; Translations: [Lipoprotein deficiency] Onset: 03-08-2022 03-08-2022 Chronic Other nutritional; endocrine; and metabolic disorders (1 source) Lipoprotein deficiency; Translations: [Low HDL (under 40)] Onset: 03-08-2022 Chronic Other screening for suspected conditions (not mental disorders or infectious disease) (1 source) Patient encounter status; Translations: [Encounter for screening for eye and ear disorders] 08-27-2024 Episodic Screening and history of mental health and substance abuse codes (3 sources) Tobacco use and exposure - finding; Translations: [Personal history of nicotine dependence] 02-07-2016 Episodic Spondylosis; intervertebral disc disorders; other back problems (20 sources) Degeneration of intervertebral disc; Translations: [Degeneration of intervertebral disc] Onset: 09-18-2009 02-07-2016 Chronic Past or Other Problems Problem Classification Problem Date Documented Date Episodic/Chronic Diverticulosis and diverticulitis (10 sources) Diverticulitis of intestine; Translations: [Diverticulitis of intestine, part unspecified, without perforation or abscess without bleeding] Onset: 05-20-2013 Resolved: 06-15-2021 06-15-2021 Chronic Joint disorders and dislocations; trauma-related (10 sources) Injury of knee; Translations: [Other tear of cartilage or meniscus of knee, current] Onset: 12-13-2014 Resolved: 12-13-2014 Episodic Other connective tissue disease (13 sources) Myofascial pain; Translations: [Myalgia, other site] Onset: 08-27-2016 08-27-2016 Episodic Other non-traumatic joint disorders (1 source) Effusion of right knee joint; Translations: [Effusion, right knee] 06-27-2023 Episodic Residual codes; unclassified (12 sources) Tobacco user; Translations: [Tobacco use] Onset: 01-08-2010 01-08-2010 Episodic Skin and subcutaneous tissue infections (14 sources) Cellulitis of elbow; Translations: [Cellulitis of right upper limb] Onset: 08-25-2012 Resolved: 06-15-2021 11-06-2021 Episodic Spondylosis; intervertebral disc disorders; other back problems (12 sources) Lumbosacral neuritis; Translations: [Radiculopathy, lumbosacral region] Onset: 01-08-2010 01-08-2010 Episodic Sprains and strains (12 sources) Sprain of knee; Translations: [Sprain of unspecified site of right knee, initial encounter] Onset: 08-27-2016 Resolved: 06-15-2021 08-17-2018 Episodic Results Test Name Value Interpretation Reference Range Facility [facility] Text [facility] -------- DARYN HAYWARD ([id number]) 1975 M Date Time Provider Department 09/03/24 OLIVIA RAWLS [facility] During your visit today, we recorded the following information about you: Mansi Guillen LPN 09/03/2024 12:53 PM Signed [facility] pharmacy calling on 08/27/2024 rx were sent for lancets and test strips but no glucose meter. Asking for rx for generic meter. Pending rx to file to pharmacy. Please advise Olivia Rawls APRN.[employer] 09/03/2024 12:57 PM Signed Order signed for glucometer Allergies As of Date: 09/03/2024 (No Known Allergies) Date Reviewed: 08/27/2024 Reviewed by: Sri Lopez MA - Fully Assessed Reason for Visit: patient needs rx for glucose meter [Other] Order(s):Blood-Glucose Meter monitoring kitGlucose Meter of Choice - Kit - Dx: Other DM Code E11.40 Insulin No Testing 4 times dailyDisp: 1 EachRfl: 0 Prescriptions as of 09/03/2024 - Blood-Glucose Meter monitoring kit Glucose Meter of Choice - Kit - Dx: Other DM Code E11.40 Insulin No Testing 4 times daily - DULoxetine (CYMBALTA) 30 mg capsule Take 1 capsule by mouth once daily. - rosuvastatin (CRESTOR) 5 mg tablet Take 1 tablet by mouth once daily. - dulaglutide (TRULICITY) 0.75 mg/0.5 mL pen injector Inject 0.75 mg subcutaneously one time a week. Inject dose once per week. Discard Pen After - glimepiride (AMARYL) 4 mg tablet Take 1 tablet by mouth daily with breakfast. - blood sugar diagnostic (BLOOD GLUCOSE TEST) test strip Test blood sugar(s) 4 times daily. Dx: Type 2 DM - Uncontrolled E11.65 Insulin: No - Lancets Test blood sugar(s) 4 times daily. Dx: Type 2 DM - Uncontrolled E11.65 Insulin: No - metFORMIN ER (GLUCOPHAGE XR) 500 mg 24 hr tablet Take 2 tablets by mouth daily with breakfast. - COMPOUNDED PRESCRIPTION Check blood sugar in am fasting and before dinner Problem List As Of Date 09/03/2024 Noted Resolved Lumbar Disc Disorder with Myelopathy [M51.06] 09/18/2009 Tobacco Abuse [Z72.0] 01/08/2010 Lumbosacral Spondylosis without Myelopathy [M47*01/08/2010 Lumbosacral Neuritis [M54.17] 01/08/2010 Herniated Nucleus Pulposus, Lumbar [M51.26] 01/08/2010 Preop exam for internal medicine [Z01.818] 06/15/2021 Intervertebral Disc Herniation [XPC0181] Pilonidal cyst with abscess [L05.01] 08/25/2012 06/15/2021 Acute diverticulitis [K57.92] 05/20/2013 06/15/2021 Other tear of cartilage or meniscus of knee, cu*12/13/2014 12/13/2014 Type 2 diabetes mellitus with diabetic neuropat*03/08/2016 Postlaminectomy syndrome [M96.1] 08/27/2016 Myofascial muscle pain [M79.18] 08/27/2016 Lumbar strain [S39.012A] 08/27/2016 06/15/2021 Depressive disorder [F32.A] 06/15/2021 Hyperlipidemia, mixed [E78.2] 03/08/2022 Low HDL (under 40) [E78.6] 03/08/2022 Hypertriglyceridemia [E78.1] 03/08/2022 Prescriptions ordered this encounter Disp Refills Start End BLOOD-GLUCOSE METER KIT 1 Ea* 0 09/03/2024 09/04/2024 Sig: Glucose Meter of Choice - Kit - Dx: Other DM Code E11.40 Insulin No Testing 4 times daily Encounter Status:Closed by SRI LOPEZ on 09/03/24 [facility] 08[facility]30[facility]2024 [facility] DARYN HAYWARD ([id number]) 1975 M Date Time Provider Department 08/30/24 [facility] During your visit today, we recorded the following information about you: Sri Lopez MA 08/30/2024 8:08 AM Signed ----- Message from Olivia Rawls sent at 08/30/2024 8:00 AM EDT ----- Thyroid screening, magnesium, and B12 are all normal. Sri Lopez MA 08/30/2024 8:57 AM Signed Patient was made aware of the results. Patient verbalizes understanding. He is asking for refill of cymbalta. Svetlana Burden Lisa, MA 08/30/2024 2:41 PM Signed ----- Message from Olivia Rawls sent at 08/30/2024 12:41 PM EDT ----- John-Mckeon virus was positive. No acute infection although he has been infected in the past. This can cause fatigue. Since it is viral, there is no treatment. Sri Lopez MA 08/30/2024 3:29 PM Signed Attempted to call pt, no answer, mailbox is full Mansi GuillenANKITA 08/30/2024 3:53 PM Signed Patient returned call and went over results notes from Nadia Rawls WAITSTAFF few times until he understood. Went over other results below in this note again and aware rx sent to pharmacy with understanding. Allergies As of Date: 08/30/2024 (No Known Allergies) Date Reviewed: 08/27/2024 Reviewed by: Sri Lopez MA - Fully Assessed Reason for Visit: Results [95] Visit Diagnosis:Depressive disorder [F32.A] Order(s):DULoxetine (CYMBALTA) 30 mg capsuleTake 1 capsule by mouth once daily.Disp: 90 capsuleRfl: 3 Prescriptions as of 08/30/2024 - DULoxetine (CYMBALTA) 30 mg capsule Take 1 capsule by mouth once daily. - rosuvastatin (CRESTOR) 5 mg tablet Take 1 tablet by mouth once daily. - dulaglutide (TRULICITY) 0.75 mg/0.5 mL pen injector Inject 0.75 mg subcutaneously one time a week. Inject dose once per week. Discard Pen After - glimepiride (AMARYL) 4 mg tablet Take 1 tablet by mouth daily with breakfast. - blood sugar diagnostic (BLOOD GLUCOSE TEST) test strip Test blood sugar(s) 4 times daily. Dx: Type 2 DM - Uncontrolled E11.65 Insulin: No - Lancets Test blood sugar(s) 4 times daily. Dx: Type 2 DM - Uncontrolled E11.65 Insulin: No - metFORMIN ER (GLUCOPHAGE XR) 500 mg 24 hr tablet Take 2 tablets by mouth daily with breakfast. - COMPOUNDED PRESCRIPTION Check blood sugar in am fasting and before dinner Problem List As Of Date 08/30/2024 Noted Resolved Lumbar Disc Disorder with Myelopathy [M51.06] 09/18/2009 Tobacco Abuse [Z72.0] 01/08/2010 Lumbosacral Spondylosis without Myelopathy [M47*01/08/2010 Lumbosacral Neuritis [M54.17] 01/08/2010 Herniated Nucleus Pulposus, Lumbar [M51.26] 01/08/2010 Preop exam for internal medicine [Z01.818] 06/15/2021 Intervertebral Disc Herniation [NUI1965] Pilonidal cyst with abscess [L05.01] 08/25/2012 06/15/2021 Acute diverticulitis [K57.92] 05/20/2013 06/15/2021 Other tear of cartilage or meniscus of knee, cu*12/13/2014 12/13/2014 Type 2 diabetes mellitus with diabetic neuropat*03/08/2016 Postlaminectomy syndrome [M96.1] 08/27/2016 Myofascial muscle pain [M79.18] 08/27/2016 Lumbar strain [S39.012A] 08/27/2016 06/15/2021 Depressive disorder [F32.A] 06/15/2021 Hyperlipidemia, mixed [E78.2] 03/08/2022 Low HDL (under 40) [E78.6] 03/08/2022 Hypertriglyceridemia [E78.1] 03/08/2022 Prescriptions ordered this encounter Disp Refills Start End DULOXETINE 30 MG CAPSULE,DELAYED REL* 90 c* 3 08/30/2024 08/30/2025 Route: ORAL Sig: Take 1 capsule by mouth once daily. Encounter Status:Closed by MANSI GUILLEN on 08/30/24 [facility] 08-27-2024 CNOV Office Visit (FAMPWS ) -------- DARYN HAYWARD ([id number]) 1975 M Date Time Provider Department 08/27/24 9:20 AM OLIVIA ARWLS [facility] During your visit today, we recorded the following information about you: Pulse Blood pressure Weight Height 88/minute 128/70 105.3 kg 1.86 m Olivia Rawls, ASHUTOSH.[employer] 08/27/2024 10:02 AM Signed Chief Reason For Appointment Patient presents with: Physical Daryn Hayward is a 49 year old male who presents for annual exam. Last office visit date: 06/26/2023 Accompanied By self only Have you had any critical events, hospital stays, ER visits, surgeries or procedures since your last visit here in our office: No Specialists/Other Healthcare Providers Seen: Patient Care Team: Krystle Albright PA-C as PCP - General (Family Medicine) Concerns today: None HPI Here today for wellness check Active Problems ACTIVE PROBLEM LIST Hyperlipidemia, Mixed - 03/08/2022 Low Hdl (Under 40) - 03/08/2022 Hypertriglyceridemia - 03/08/2022 Depressive Disorder - 06/15/2021 Postlaminectomy Syndrome - 08/27/2016 Myofascial Muscle Pain - 08/27/2016 Type 2 Diabetes Mellitus With Diabetic Neuropathy, Without Long-Term Current Use of Insulin ([facility]) - 03/08/2016 Intervertebral Disc Herniation Tobacco Abuse - 01/08/2010 Lumbosacral Spondylosis Without Myelopathy - 01/08/2010 Lumbosacral Neuritis - 01/08/2010 Herniated Nucleus Pulposus, Lumbar - 01/08/2010 Lumbar Disc Disorder With Myelopathy - 09/18/2009 ROS: REVIEW OF SYSTEMS GENERAL: No weight loss, + malaise, no fevers/chills HEENT: Negative for frequent or significant headaches, No changes in hearing or vision. Has had an eye exam within a year NECK: Negative for lumps, goiter, pain and significant neck swelling RESPIRATORY: Negative for cough, hemoptysis, wheezing, dyspnea or shortness of breath CARDIOVASCULAR: Negative for chest pain, leg swelling, orthopnea, or palpitations GI: No nausea, vomiting, or diarrhea/constipation. No hematochezia/melena. No heartburn or reflux symptoms. : No history of dysuria, frequency or incontinence MUSCULOSKELETAL: Negative for joint pain or swelling. Stiffness across low back. No radiation of pain. Wears tool bed, a lot of lifting. 07/10 SKIN: Negative for lesions, rash, and itching ENDOCRINE: Negative for cold or heat intolerance, polyuria, polydipsia and goiter NEURO: No history of headaches, syncope, paralysis, seizures or tremors MOOD: Negative for depression, anxiety, or suicidal ideation. PAST MEDICAL HISTORY Diagnosis Date Abscess gluteal Acute diverticulitis 05/20/2013 Acute meniscal tear of left knee medial Back pain Intervertebral disc herniation Pilonidal cyst with abscess 08/25/2012 Preop exam for internal medicine PAST SURGICAL HISTORY Procedure Laterality Date ARTHROSCOPY KNEE DIAGNOSTIC W/WO SYNOVIAL BX SPX 12/13/2014 Arthroscopy, knee left, partial medial meniscectomy PAST SURGICAL HISTORY OF 02-28-10 discectomy, lumbar REVJ TOT KNEE ARTHRP FEMANDENTIRE TIBIAL COMPONE 2006 torn maniscus right knee Subcutaneous nodule 01/24/10 fatty tissue removed from right shoulder Medication List Current Outpatient Medications Medication Sig Dispense Refill glimepiride (AMARYL) 4 mg tablet Take 1 tablet by mouth daily with breakfast. 30 tablet 0 metFORMIN ER (GLUCOPHAGE XR) 500 mg 24 hr tablet Take 2 tablets by mouth daily with breakfast. 60 tablet 0 rosuvastatin (CRESTOR) 5 mg tablet Take 1 tablet by mouth once daily. 90 tablet 3 dulaglutide (TRULICITY) 0.75 mg/0.5 mL pen injector Inject 0.75 mg subcutaneously one time a week. Inject dose once per week. Discard Pen After (Patient not taking: Reported on 08/27/2024) 4 Each 3 COMPOUNDED PRESCRIPTION Check blood sugar in am fasting and before dinner 1 Device 0 blood sugar diagnostic (BLOOD GLUCOSE TEST) test strip Test blood sugar(s) 4 times daily. Dx: Type 2 DM - Uncontrolled E11.65 Insulin: No 50 Strip 11 Lancets lancets Test blood sugar(s) 4 times daily. Dx: Type 2 DM - Uncontrolled E11.65 Insulin: No 100 Each 11 No current facility-administered medications for this visit. Weight Summary: Weight Change: Body mass index is 30.44 kg/m?. Last Wt 08/27/24 : 105.3 kg (232 lb 2.3 oz) 06/26/23 : 108.4 kg (239 lb) 06/24/23 : 110.7 kg (244 lb) 02/05/22 : 101.5 kg (223 lb 12.8 oz) 07/13/21 : 100.7 kg (222 lb) Physical Exam: General Appearance: tired appearing, alert and oriented. Skin: no suspicious lesion, no rash, no open sores Head: normocephalic, no obvious masses, lesions, tenderness or abnormalities. Eyes: Anicteric sclera. Pupils are equally round and reactive to light. Extraocular movements are intact. No nystagmus. Fundi benign. Ears: external ears normal, canals with some cerumen impacted right ear only, TM's unable to visualize. Hearing to conversational voice intact (more content not included)... Normal [facility] 08-27-2024 [facility] Telephone ([facility]) -------- ADRYN HAYWARD ([id number]) 1975 M Date Time Provider Department 08/27/24 OLIVIA RAWLS [facility] During your visit today, we recorded the following information about you: Olivia Rawls, [facility] 08/27/2024 8:07 AM Signed Please let patient know that his triglycerides are very high and good cholesterol is very low. Guidelines recommend a statin and I prefer rosuvastatin 5 mg daily. Is the statin that is best tolerated. Blood sugars are a little high but much improved. Good job. Sri Lopez MA 08/27/2024 9:31 AM Signed Pt in office today Allergies As of Date: 08/27/2024 (No Known Allergies) Date Reviewed: 08/27/2024 Reviewed by: Sri Lopez MA - Fully Assessed Primary Visit Diagnosis:Diabetes mellitus due to underlying condition with hyperosmolarity without coma, without long-term current use of insulin ([facility]) [E08.00] Order(s):rosuvastatin (CRESTOR) 5 mg tabletTake 1 tablet by mouth once daily.Disp: 90 tabletRfl: 3 Prescriptions as of 08/27/2024 - rosuvastatin (CRESTOR) 5 mg tablet Take 1 tablet by mouth once daily. - glimepiride (AMARYL) 4 mg tablet Take 1 tablet by mouth daily with breakfast. - metFORMIN ER (GLUCOPHAGE XR) 500 mg 24 hr tablet Take 2 tablets by mouth daily with breakfast. - dulaglutide (TRULICITY) 0.75 mg/0.5 mL pen injector Inject 0.75 mg subcutaneously one time a week. Inject dose once per week. Discard Pen After - COMPOUNDED PRESCRIPTION Check blood sugar in am fasting and before dinner - blood sugar diagnostic (BLOOD GLUCOSE TEST) test strip Test blood sugar(s) 4 times daily. Dx: Type 2 DM - Uncontrolled E11.65 Insulin: No - Lancets lancets Test blood sugar(s) 4 times daily. 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] 09/18/2009 Tobacco Abuse [Z72.0] 01/08/2010 Lumbosacral Spondylosis without Myelopathy [M47*01/08/2010 Lumbosacral Neuritis [M54.17] 01/08/2010 Herniated Nucleus Pulposus, Lumbar [M51.26] 01/08/2010 Preop exam for internal medicine [Z01.818] 06/15/2021 Intervertebral Disc Herniation [OBP0283] Pilonidal cyst with abscess [L05.01] 08/25/2012 06/15/2021 Acute diverticulitis [K57.92] 05/20/2013 06/15/2021 Other tear of cartilage or meniscus of knee, cu*12/13/2014 12/13/2014 Type 2 diabetes mellitus with diabetic neuropat*03/08/2016 Postlaminectomy syndrome [M96.1] 08/27/2016 Myofascial muscle pain [M79.18] 08/27/2016 Lumbar strain [S39.012A] 08/27/2016 06/15/2021 Depressive disorder [F32.A] 06/15/2021 Hyperlipidemia, mixed [E78.2] 03/08/2022 Low HDL (under 40) [E78.6] 03/08/2022 Hypertriglyceridemia [E78.1] 03/08/2022 Prescriptions ordered this encounter Disp Refills Start End ROSUVASTATIN 5 MG TABLET 90 t* 3 08/27/2024 08/27/2025 Route: ORAL Sig: Take 1 tablet by mouth once daily. Encounter Status:Closed by SRI LOPEZ on 08/27/24 Normal [facility] JOHN MCKEON PANELon 024 EBV NA AB, QUAL Positive Abnormal Negative [facility] Comment on above: Order Comment: Speci men Type: BLOOD SPECIMENOrdering Facility: [facility] Address: [address] [place] [address] Performed By: #### E BVPNL ####[facility] LABCLIA [id number] [place] [address] [place] EBV VCA IGG, QUAL Positive Abnormal Negative [facility] Comment on above: Order Comment: Speci men Type: BLOOD SPECIMENOrdering Facility: [facility] Address: [address] [place] [address] Performed By: #### E BVPNL ####[facility] LABCLIA [id number] [place] [address] [place] EBV VCA IGM, QUAL Negative Normal Negative [facility] Comment on above: Order Comment: Speci men Type: BLOOD SPECIMENOrdering Facility: [facility] Address: [address] [place] [address] Performed By: #### E BVPNL ####[facility] LABCLIA [id number] [place] [address] [place] INTERPRETATION (EBVPNL) Past Infection. EBV panel interpretation is a general guide that is meant to capture most, but not all, of the possible clinical scenarios. Non-specific reactivities are not uncommon especially with equivocal results. Should the overall interpretation not be consistent with the clinical picture, please contact the general medical practitioner of the test for assistance. Normal [facility] Comment on above: Order Comment: Speci men Type: BLOOD SPECIMENOrdering Facility: [facility] Address: [address] [place] [address] Performed By: #### E BVPNL ####[facility] LABCLIA [id number] [place] [address] [place] Magnesium SerPl-mCncon 08-27 Magnesium [Mass/Vol] 1.9 mg/dL Normal 1.7-2.3 [facility] Comment on above: Order Comment: Speci men Type: BLOOD SPECIMENOrdering Facility: [facility] Address: [address] [place] [address] Performed By: #### 3 016-3, 7, , 2132-08 ####[facility] LABIA [id number] [place] [address] [place] T4 Free SerPl-mCncon 024 Free T4 [Mass/Vol] 1.2 ng/dL Normal 0.9-1.7 [facility] Comment on above: Order Comment: Speci men Type: BLOOD SPECIMENOrdering Facility: [facility] Address: [address] [place] [address] Performed By: #### 3 016-3, 3024-05, , 2132-08 ####[facility] LABIA [id number] [place] [address] [place] TSH SerPl-aCncon 08-27-2024 TSH Qn 1.410 m[IU]/L Normal 0.270-4.200 [facility] Comment on above: Order Comment: Speci men Type: BLOOD SPECIMENOrdering Facility: [facility] Address: [address] [place] [address] Performed By: #### 3 016-3, 3024-05, , 2132-08 ####[facility] LABIA [id number] [place] [id number] [place] Vit B12 SerPl-mCncon 024 Cobalamin (Vitamin B12) [Mass/Vol] 467 pg/mL Normal 232-1245 [facility] Comment on above: Order Comment: Speci men Type: BLOOD SPECIMENOrdering Facility: [facility] Address: [address] [place] [address] Performed By: #### 3 016-3, 3024-7, 12499-3, 2132-9 ####[facility] LABCLIA [id number] [place] [address] [place] CBC panel Auto (Bld)on 08-26 Erythrocyte distribution width (RBC) [Ratio] 12.3 % Normal 11.5-15.0 [facility] Comment on above: Order Comment: Speci men Type: BLOOD SPECIMENOrdering Facility: [facility] Address: [address] [place] [address] Performed By: #### 5 8410-2 ####[facility] LABIA [id number] [place] [address] [place] Hematocrit (Bld) [Volume fraction] 41.3 % Normal 39.0-51.0 [facility] Comment on above: Order Comment: Speci men Type: BLOOD SPECIMENOrdering Facility: [facility] Address: [address] [place] [address] Performed By: #### 5 8410-2 ####[facility] LABIA [id number] [place] [address] [place] Hemoglobin (Bld) [Mass/Vol] 13.8 g/dL Normal 13.0-17.0 [facility] Comment on above: Order Comment: Speci men Type: BLOOD SPECIMENOrdering Facility: [facility] Address: [address] [place] [address] Performed By: #### 5 8410-2 ####[facility] LABCLIA [id number] [place] [address] [place] MCH (RBC) [Entitic mass] 30.9 pg Normal 26.0-34.0 [facility] Comment on above: Order Comment: Speci men Type: BLOOD SPECIMENOrdering Facility: [facility] Address: [address] [place] [address] Performed By: #### 5 8410-2 ####[facility] LABCLIA [id number] [place] [address] [place] MCHC (RBC) [Mass/Vol] 33.4 g/dL Normal 30.5-36.0 [facility] Comment on above: Order Comment: Speci men Type: BLOOD SPECIMENOrdering Facility: [facility] Address: [address] [place] [address] Performed By: #### 5 8410-2 ####[facility] LABCLIA [id number] [place] [address] [place] MCV (RBC) [Entitic vol] 92.4 fL Normal 80.0-100.0 [facility] Comment on above: Order Comment: Speci men Type: BLOOD SPECIMENOrdering Facility: [facility] Address: [address] [place] [address] Performed By: #### 5 8410-2 ####[facility] LABCLIA [id number] [place] [address] [place] Nucleated RBC (Bld) [#/Vol] 10*3/uL Normal <0.01 [facility] Comment on above: Order Comment: Speci men Type: BLOOD SPECIMENOrdering Facility: [facility] Address: [address] [place] [address] Performed By: #### 5 8410-2 ####[facility] LABCLIA [id number] [place] [address] [place] Platelet mean volume (Bld) [Entitic vol] 10.4 fL Normal 9.0-12.7 [facility] Comment on above: Order Comment: Speci men Type: BLOOD SPECIMENOrdering Facility: [facility] Address: [address] [place] [address] Performed By: #### 5 8410-2 ####[facility] LABCLIA [id number] [place] [address] [place] Platelets (Bld) [#/Vol] 236 10*3/uL Normal 150-400 [facility] Comment on above: Order Comment: Speci men Type: BLOOD SPECIMENOrdering Facility: [facility] Address: [address] [place] [address] Performed By: #### 5 8410-2 ####[facility] LABCLIA [id number] [address] [address] [place] RBC (Bld) [#/Vol] 4.47 10*6/uL Normal 4.20-6.00 [facility] Comment on above: Order Comment: Speci men Type: BLOOD SPECIMENOrdering Facility: [facility] Address: [address] [place] [address] Performed By: #### 5 8410-2 ####[facility] LABCLIA [id number] [place] [address] [place] WBC (Bld) [#/Vol] 6.95 10*3/uL Normal 3.70-11.00 [facility] Comment on above: Order Comment: Speci men Type: BLOOD SPECIMENOrdering Facility: [facility] Address: [address] [place] [address] Performed By: #### 5 8410-2 ####[facility] LABCLIA [id number] [place] [address] [place] Comprehensive metabolic 2000 panelon 08-26-2024 Albumin [Mass/Vol] 4.0 g/dL Normal 3.9-4.9 [facility] Comment on above: Order Comment: Speci men Type: BLOOD SPECIMENOrdering Facility: [facility] Address: [address] [place] [address] Performed By: #### 2 4323-8, 74807-4, 30042-7 ####[facility] LABCLIA [id number] [place] [address] [place] ALP [Catalytic activity/Vol] 76 U/L Normal 38-113 [facility] Comment on above: Order Comment: Speci men Type: BLOOD SPECIMENOrdering Facility: [facility] Address: [address] [place] [address] Performed By: #### 2 4323-8, 17173-2, 29057-5 ####[facility] LABCLIA [id number] [place] [address] [place] ALT [Catalytic activity/Vol] 16 U/L Normal 10-54 [facility] Comment on above: Order Comment: Speci men Type: BLOOD SPECIMENOrdering Facility: [facility] Address: [address] [place] [address] Performed By: #### 2 4323-8, 94398-4, 95700-7 ####[facility] LABIA [id number] [place] [address] [place] Anion gap [Moles/Vol] 10 mmol/L Normal 8-15 [facility] Comment on above: Order Comment: Speci men Type: BLOOD SPECIMENOrdering Facility: [facility] Address: [address] [place] [address] Performed By: #### 2 4323-8, , 28923-0 ####[facility] LABIA [id number] [place] [address] [place] AST [Catalytic activity/Vol] 16 U/L Normal 14-40 [facility] Comment on above: Order Comment: Speci men Type: BLOOD SPECIMENOrdering Facility: [facility] Address: [address] [place] [address] Performed By: #### 2 4323-8, 09406-8, 55470-0 ####[facility] LABIA [id number] [place] [id number] [place] Bilirubin [Mass/Vol] 0.3 mg/dL Normal 0.2-1.3 [facility] Comment on above: Order Comment: Speci men Type: BLOOD SPECIMENOrdering Facility: [facility] Address: [address] [place] [address] Performed By: #### 2 4323-8, , ####[facility] LABCLIA [id number] [address] [address] [place] Calcium [Mass/Vol] 8.5 mg/dL Normal 8.5-10.2 [facility] Comment on above: Order Comment: Speci men Type: BLOOD SPECIMENOrdering Facility: [facility] Address: [address] [place] [address] Performed By: #### 2 4323-8, , ####[facility] LABCLIA [id number] [place] [address] [place] Chloride [Moles/Vol] 106 mmol/L Normal 98-107 [facility] Comment on above: Order Comment: Speci men Type: BLOOD SPECIMENOrdering Facility: [facility] Address: [address] [place] [address] Performed By: #### 2 4323-8, , ####[facility] LABCLIA [id number] [place] [address] [place] CO2 [Moles/Vol] 23 mmol/L Normal 22-30 [facility] Comment on above: Order Comment: Speci men Type: BLOOD SPECIMENOrdering Facility: [facility] Address: [address] [place] [address] Performed By: #### 2 4323-8, , ####[facility] LABCLIA [id number] [address] [address] [place] Creatinine [Mass/Vol] 0.72 mg/dL Low 0.73-1.22 [facility] Comment on above: Order Comment: Speci men Type: BLOOD SPECIMENOrdering Facility: [facility] Address: [address] [place] [address] Performed By: #### 2 4323-8, , 84936-9 ####[facility] LABCLIA [id number] [place] [address] [place] Creatinine and Glomerular filtration rate.predicted panel (S/P/Bld) 113 mL/min/1.73m??? Normal >=60 [facility] Comment on above: Order Comment: Odin edwards Type: BLOOD SPECIMENOrdering Facility: [facility] Address: [address] [place] [address] Result Comment: Zahida mated Glomerular Filtration Rate (eGFR) is calculated using the 2020 CKD-EPI creatinine equation. This equation utilizes serum creatinine, sex, and age as parameters. The creatinine assay has traceable calibration to isotope dilution-mass spectrometry. Refer to KDIGO guidelines for clinical interpretation. In patients with unstable renal function, e.g. those with acute kidney injury, the eGFR may not accurately reflect actual GFR. Performed By: #### 2 4323-8, 35198-3, 92090-4 ####[facility] [id number] [place] [address] [place] Glucose [Mass/Vol] 221 mg/dL High 74-99 [facility] Comment on above: Order Comment: Odin edwards Type: BLOOD SPECIMENOrdering Facility: [facility] Address: [address] [place] [address] Result Comment: The [place] Diabetes Association (ADA) provides guidance for cutoff values for fasting glucose and random glucose. The ADA defines fasting as no caloric intake for at least 8 hours. Fasting plasma glucose results between 100 to 125 mg/dL indicate increased risk for diabetes (prediabetes). Fasting plasma glucose results greater than or equal to 126 mg/dL meet the criteria for diagnosis of diabetes. In the absence of unequivocal hyperglycemia, results should be confirmed by repeat testing. In a patient with classic symptoms of hyperglycemia or hyperglycemic crisis, random plasma glucose results greater than or equal to 200 mg/dL meet the criteria for diagnosis of diabetes. Reference: Standards of Medical Care in Diabetes 2016, [place] Diabetes Association. Diabetes Care. 2016.39(Suppl 1). Performed By: #### 2 4323-8, 49266-3, 24527-7 ####[facility] LABIA [id number] [place] [id number] [place] Potassium [Moles/Vol] 4.2 mmol/L Normal 3.7-5.1 [facility] Comment on above: Order Comment: Speci men Type: BLOOD SPECIMENOrdering Facility: [facility] Address: [address] [place] [address] Performed By: #### 2 4323-8, , 92059-6 ####[facility] LABCLIA [id number] [place] [address] [place] Protein [Mass/Vol] 6.6 g/dL Normal 6.3-8.0 [facility] Comment on above: Order Comment: Speci men Type: BLOOD SPECIMENOrdering Facility: [facility] Address: [address] [place] [address] Performed By: #### 2 4323-8, , 75109-3 ####[facility] LABCLIA [id number] [place] [address] [place] Sodium [Moles/Vol] 139 mmol/L Normal 136-144 [facility] Comment on above: Order Comment: Speci men Type: BLOOD SPECIMENOrdering Facility: [facility] Address: [address] [place] [address] Performed By: #### 2 4323-8, , ####[facility] LABCLIA [id number] [place] [address] [place] Urea nitrogen [Mass/Vol] 10 mg/dL Normal 9-24 [facility] Comment on above: Order Comment: Speci men Type: BLOOD SPECIMENOrdering Facility: [facility] Address: [address] [place], [place] [address] Performed By: #### 2 4323-8, , 30596-9 ####[facility] LABCLIA [id number] [address] [address] [place] HbA1c (Bld)on 08-26-2024 Average glucose Estimated from glycated hemoglobin (Bld) [Mass/Vol] 177 mg/dL Normal [facility] Comment on above: Order Comment: Odin edwards Type: BLOOD SPECIMENOrdering Facility: [facility] Address: [address] [place] [address] Result Comment: eAG: (Estimated average glucose) is a calculated value from HgbA1c and is apprenticeship training representative of the average blood glucose level in the last 2-3 month period. Performed By: #### 5 5454-3 ####[facility] LABCLIA [id number] [place] [address] [place] HbA1c (Bld) [Mass fraction] 7.8 % High 4.3-5.6 [facility] Comment on above: Order Comment: Odin edwards Type: BLOOD SPECIMENOrdering Facility: [facility] Address: [address] [place] [address] Result Comment: [place] Diabetes Association guidelines indicate that patients with HgbA1c in the range 5.7-6.4% are at increased risk for development of diabetes, and intervention by lifestyle modification may be beneficial. HgbA1c greater or equal to 6.5% is considered diagnostic of diabetes. Performed By: #### 5 5454-3 ####[facility] LABCLIA [id number] [place] [address] [place] Lipid 1996 panelon Cholesterol [Mass/Vol] 166 mg/dL Normal <200 [facility] Comment on above: Order Comment: Odin edwards Type: BLOOD SPECIMENOrdering Facility: [facility] Address: [address] [place] [address] Result Comment: <200 mg/dL, Desirable 200-239 mg/dL, Borderline high >239 mg/dL, High Performed By: #### 2 4323-8, 16300-4, 16213-2 ####[facility] LABCLIA [id number] [place] [address] [place] Cholesterol in HDL [Mass/Vol] 30 mg/dL Low >39 [facility] Comment on above: Order Comment: Speci men Type: BLOOD SPECIMENOrdering Facility: [facility] Address: [address] [place] [address] Result Comment: 40-5 9 mg/dL, Acceptable >59 mg/dL, High: Negative risk factor for coronary heart disease <40 mg/dL, Low: Positive risk factor for coronary heart disease Performed By: #### 2 4323-8, , 03970-1 ####[facility] LABCLIA [id number] [place] [address] [place] Cholesterol in LDL [Mass/Vol] 82 mg/dL Normal <100 [facility] Comment on above: Order Comment: Jose Mi jerry Type: BLOOD SPECIMENOrdering Facility: [facility] Address: [address] [place] [address] Result Comment: <100 mg/dL, Optimal 100-129 mg/dL, Near optimal/above optimal 130-159 mg/dL, Borderline high 160-189 mg/dL, High >189 mg/dL, Very high Secondary prevention optimal LDL Cholesterol levels are recommended to be < 70 mg/dL Performed By: #### 2 4323-8, , ####[facility] LABCLIA [id number] [address] [place] Cholesterol in LDL/Cholesterol in HDL [Mass ratio] 2.73 {ratio} High <2.54 [facility] Comment on above: Order Comment: Speci jerry Type: BLOOD SPECIMENOrdering Facility: [facility] Address: [address] [place] [address] Result Comment: Refe rence: 1. National Cholesterol Education Program ATP III Guideline At-A-Glance Quick Desk Reference: National Heart, Lung, and Blood [place]. National Institutes of Health. 2001: NIH Publication No. 01-3305. 2. An International Atherosclerosis Society position paper: global recommendations for the management of dyslipidemia: executive summary, Atherosclerosis. 2014: 232(2):410-413. Performed By: #### 2 4323-8, , 76429-3 ####[facility] LABCLIA [id number] [address] [address] [place] Cholesterol in VLDL [Mass/Vol] 54 mg/dL High <30 [facility] Comment on above: Order Comment: Speci men Type: BLOOD SPECIMENOrdering Facility: [facility] Address: [address] [place] [address] Performed By: #### 2 4323-8, , 66784-0 ####[facility] LABCLIA [id number] [place] [id number] [place] Cholesterol non HDL [Mass/Vol] 136 mg/dL High <130 [facility] Comment on above: Order Comment: Speci men Type: BLOOD SPECIMENOrdering Facility: [facility] Address: [address] [place] [address] Result Comment: <130 mg/dL, Optimal 130-159 mg/dL, Near optimal/above optimal 160-189 mg/dL, Borderline high 190-219 mg/dL, High >219 mg/dL, Very high Secondary prevention optimal non HDL Cholesterol levels are recommended to be <100 mg/dL Performed By: #### 2 4323-8, , 58939-6 ####[facility] LABCLIA [id number] [place] [address] [place] Cholesterol.total/C holesterol in HDL [Mass ratio] 5.53 {ratio} High <5.10 [facility] Comment on above: Order Comment: Speci men Type: BLOOD SPECIMENOrdering Facility: [facility] Address: [address] [place], [place] [id number] Performed By: #### 2 4323-8, , 88187-2 ####[facility] LABIA [id number] [place] [id number] [place] FASTING TIME 12 hrs Normal [facility] Comment on above: Order Comment: Speci men Type: BLOOD SPECIMENOrdering Facility: [facility] Address: [address] [place], [place] [id number] Performed By: #### 2 4323-8, , ####[facility] LABCLIA [id number] [place] [id number] [place] Triglyceride [Mass/Vol] 272 mg/dL High <150 [facility] Comment on above: Order Comment: Speci men Type: BLOOD SPECIMENOrdering Facility: [facility] Address: [address] [place] [address] Result Comment: <150 mg/dL, Normal 150-199 mg/dL, Borderline high 200-499 mg/dL, High >499 mg/dL, Very high Performed By: #### 2 4323-8, , ####[facility] LABCLIA [id number] [place] [address] [place] Magnesium SerPl-mCncon 08-26 Magnesium [Mass/Vol] 2.0 mg/dL Normal 1.7-2.3 [facility] Comment on above: Order Comment: Speci men Type: BLOOD SPECIMENOrdering Facility: [facility] Address: [address] [place] [address] Performed By: #### 2 4323-8, , ####[facility] LABIA [id number] [address] [place] CNPNon 08-24-2024 [facility] -------- DARYN HAYWARD ([id number]) 1975 Krystle Date Time Provider Department 08/24/24 Krystle [facility] During your visit today, we recorded the following information about you: Daisha Cooley 08/24/2024 10:03 AM Signed Patient is requesting blood work order to be placed for upcoming physical this week 08/27/2024 Please call to advise orders are in at phone [phone] Olivia Rawls APRN.CNP 08/24/2024 12:50 PM Signed Orders in Sri Lopez MA 08/24/2024 1:23 PM Signed Pt notified Allergies As of Date: 08/24/2024 (No Known Allergies) Date Reviewed: 06/26/2023 Reviewed by: Antonieta Carlos - Fully Assessed Reason for Visit: Orders [681] Primary Visit Diagnosis:Type 2 diabetes mellitus with diabetic neuropathy, without long-term current use of insulin (HCC) [E11.40] Other Visit Diagnoses:Hypertriglycer idemia [E78.1] Hyperlipidemia, mixed [E78.2] Low HDL (under 40) [E78.6] Depressive disorder [F32.A] Order(s):HEMOGLOBIN A1C [LXKHV4V] Order #: [id number] FUTURE LIPID PANEL BASIC [SQLIPB] Order #: [id number] FUTURE COMPREHENSIVE METABOLIC PANEL [SQCMP] Order #: [id number] FUTURE COMPLETE BLOOD COUNT [SQCBC] Order #: [id number] FUTURE MAGNESIUM [SQMG1] Order #: [id number] FUTURE ALBUMIN/CREATININE RATIO, URINE [SQUACR] Order #: [id number] FUTURE Prescriptions as of 08/24/2024 - glimepiride (AMARYL) 4 mg tablet Take 1 tablet by mouth daily with breakfast. - metFORMIN ER (GLUCOPHAGE XR) 500 mg 24 hr tablet Take 2 tablets by mouth daily with breakfast. - dulaglutide (TRULICITY) 0.75 mg/0.5 mL pen injector Inject 0.75 mg subcutaneously one time a week. Inject dose once per week. Discard Pen After - COMPOUNDED PRESCRIPTION Check blood sugar in am fasting and before dinner - blood sugar diagnostic (BLOOD GLUCOSE TEST) test strip Test blood sugar(s) 4 times daily. Dx: Type 2 DM - Uncontrolled E11.65 Insulin: No - Lancets lancets Test blood sugar(s) 4 times daily. Dx: Type 2 DM - Uncontrolled E11.65 Insulin: No Problem List As Of Date 08/24/2024 Noted Resolved Lumbar Disc Disorder with Myelopathy [M51.06] 09/18/2009 Tobacco Abuse [Z72.0] 01/08/2010 Lumbosacral Spondylosis without Myelopathy [M47*01/08/2010 Lumbosacral Neuritis [M54.17] 01/08/2010 Herniated Nucleus Pulposus, Lumbar [M51.26] 01/08/2010 Preop exam for internal medicine [Z01.818] 06/15/2021 Intervertebral Disc Herniation [YQV7885] Pilonidal cyst with abscess [L05.01] 08/25/2012 06/15/2021 Acute diverticulitis [K57.92] 05/20/2013 06/15/2021 Other tear of cartilage or meniscus of knee, cu*12/13/2014 12/13/2014 Type 2 diabetes mellitus with diabetic neuropat*03/08/2016 Postlaminectomy syndrome [M96.1] 08/27/2016 Myofascial muscle pain [M79.18] 08/27/2016 Lumbar strain [S39.012A] 08/27/2016 06/15/2021 Depressive disorder [F32.A] 06/15/2021 Hyperlipidemia, mixed [E78.2] 03/08/2022 Low HDL (under 40) [E78.6] 03/08/2022 Hypertriglyceridemia [E78.1] 03/08/2022 Encounter Status:Closed by SRI LOPEZ on 08/24/24 Normal [facility] XR Knee - right 4 Viewson IMPRESSION: Degenerative changes as described. Peer Educator: PSCB Transcribe Date/Time: Jun 24 2023 1:17P Dictated by : DENNIS HAWTHORNE MD This examination was interpreted and the report reviewed and electronically signed by: DENNIS HAWTHORNE MD on Jun 24 2023 1:18PM [facility] DIVISION OF RADIOLOGY * * *Final Report* * * DATE OF EXAM: Jun 24 2023 1:11PM WOX 5203 - XR KNEE 4V AP/PA BOTH+LAT/SAKINA RT / PROCEDURE REASON: multiple diagnoses * * * * Physician Interpretation * * * * TITLE: XR KNEE 4V AP/PA BOTH+LAT/SAKINA RT CLINICAL INDICATION: Chronic knee pain TECHNIQUE: AP/PA/merchant radiographs of both knees and lateral radiograph of the right knee COMPARISON: Radiograph dated July 13, 2021 FINDINGS: Right knee: Trace fluid in the right suprapatellar joint space. No acute fracture or dislocation. Mild to moderate medial compartmental joint space narrowing. Miniscule patellofemoral compartmental osteophyte production. Left knee: No acute fracture or dislocation. Mild to moderate medial compartmental joint space narrowing. Miniscule patellofemoral compartmental osteophyte production. DIVISION OF RADIOLOGY [facility] * * *Final Report* * * DATE OF EXAM: Jun 24 2023 1:11PM WOX 5203 - XR KNEE 4V AP/PA BOTH+LAT/SAKINA RT / PROCEDURE REASON: multiple diagnoses * * * * Physician Interpretation * * * * TITLE: XR KNEE 4V AP/PA BOTH+LAT/SAKINA RT CLINICAL INDICATION: Chronic knee pain TECHNIQUE: AP/PA/merchant radiographs of both knees and lateral radiograph of the right knee COMPARISON: Radiograph dated July 13, 2021 FINDINGS: Right knee: Trace fluid in the right suprapatellar joint space. No acute fracture or dislocation. Mild to moderate medial compartmental joint space narrowing. Miniscule patellofemoral compartmental osteophyte production. Left knee: No acute fracture or dislocation. Mild to moderate medial compartmental joint space narrowing. Miniscule patellofemoral compartmental osteophyte production. IMPRESSION IMPRESSION: Degenerative changes as described. Peer Educator: PSCB Transcribe Date/Time: Jun 24 2023 1:17P Dictated by : DENNIS HAWTHORNE MD This examination was interpreted and the report reviewed and electronically signed by: DENNIS HAWTHORNE MD on Jun 24 2023 1:18PM EST [facility] Radiology Study observation (narrative) [facility] XR Knee - right 4 ViewsOrder ed By: [facility] Provider on 06-24-2023 [facility] Emergency Department Summary on 12-18-2022 Emergency Department Summary [facility] Medical Records Department [address] [place] [id number] Emergency Department Summary 12/18/22 MR#: [id number] Acct: [id number] Name: DARYN HAYWARD Rep #: [id number] : 1975 47 From: Demarcus De La Paz PCP: SCARLETT Lee Status:DEP ER Location: ED HPI History of Present Illness Chief Complaint: Lower Extremity Injury Informant: patient Narrative Narrative: Persistent pain right foot for the past 3 weeks. He was seen emergency department treated for cellulitis. There is no clear injuries. Concern potential foreign body. No imaging at that time. He was put on antibiotics for which she finished the redness improved pain has continued he is a diabetic. Unable to get in with his PCP. Using ibuprofen no relief. Reviewing records from the of last month from notes there is erythema concerning for slight tinea with cracking of skin which was concerning at that time. He is on a 10-day course of Keflex. PFSH [facility] Medical History Diabetes Home Medications glimepiride 4 mg tablet 4 mg PO DAILY 05/27/18 [History Last Taken Unknown] metformin 500 mg tablet 500 mg PO DAILY 05/27/18 [History Last Taken Unknown] cephalexin 500 mg capsule 500 mg PO Q6 #40 CAPSULES 10/29/21 [Rx Last Taken Unknown] cephalexin 500 mg tablet 500 mg PO 4X/DAY #40 tabs 11/19/22 [Rx Last Taken Unknown] cephalexin 500 mg capsule 500 mg PO Q6 #40 caps 12/18/22 [Rx Last Taken Unknown] Allergy/AdvReac Type Severity Reaction Status Date / Time No Known Allergies Allergy Verified 12/18/22 11:00 Surgical History History of back surgery Hx of knee surgery Social History Smoking Status: Current some day smoker tobacco type: cigarettes ROS ROS ED Constitutional Constitutional ED: Denies chills, fever(s) or sweats Eyes Eyes: Denies change in vision ENT ENT ED: Denies dysphagia or sore throat Cardiovascular Cardiovascular: Denies chest pain, leg edema, palpitations or racing heartbeat Respiratory/Chest Respiratory/Chest: Denies cough, dyspnea or dyspnea on exertion Gastrointestinal Gastrointestinal: Denies abdominal pain, diarrhea, nausea or vomiting Genitourinary Genitourinary ED: Denies dysuria, hematuria or urinary frequency Musculoskeletal Musculoskeletal: Reports extremity pain; Denies back pain or neck pain Integumentary Denies rash or wounds Neurologic Neurologic: Denies headache(s), paresthesias or weakness EXAM Physical Exam Const Vital Signs: 12/18/22 10:58 Temperature 96 F L Temperature Source Temporal Pulse Rate 56 L Respiratory Rate 18 Blood Pressure 165/103 H Blood Pressure Mean 123 Pulse Ox 98 Oxygen Delivery Method Room Air Positive well nourished and well developed General Appearance ED: well developed and NAD HEENT Reports moist mucous membranes normocephalic and atraumatic Eyes PERRL, EOMs intact bilaterally and conjunctivae normal General Eye ED: Yes normal appearance of both eyes Neck no lymphadenopathy and supple General: Negative for tenderness Chest Wall Chest: Negative for tenderness Resp normal respiratory effort and normal air movement Effort and Inspection: symmetric chest movement; Negative for respiratory distress Cardio regular rate, regular rhythm and no murmurs Peripheral Pulses: pulses 2+ throughout GI normal to inspection, nondistended, normoactive bowel sounds and non-tender Palpation: Negative for guarding or rebound tenderness present Back/Spine no CVA tenderness and no thoracic nor lumbar tenderness Extremity normal to inspection Extremity Narrative: Right foot: Plantar aspect at the fourth metatarsal tender to palpation. No puncturing, no gross foreign bodies. There is no current erythema or drainage no fluctuance. General Extremety ED: Yes tenderness; Negative for edema General Extremity: Negative for edema Neuro oriented x3 and no sensory deficits noted Sensorium / Orientation: awake and alert Skin no rashes or lesions noted and no wounds MDM MDM MDM Narrative Medical decision making narrative: There is no current erythema for concerns for cellulitis. Have his pain to the local area, differential could be retained foreign body with no infection at this time. Nonspecific foot pain also. X-ray right foot 3 views obtained. This was interpreted by myself shows no radiopaque foreign bodies. Discussed with the patient he will need podiatry follow-up. He states he would like to try another course of antibiotics due to help in him in the past. Risk and benefits with antibiotics. This was sent to his pharmacy podiatry follow-up given. Radiography Diagnostic Testing: Clinical Impression(s) from Imaging (more content not included)... Normal [facility] Foot min 3 Viewson 01-18-202 3 Foot min 3 Views [facility] Imaging Services [address] [place] [address] Foot min 3 Views MR#: [id number] Acct: [id number] Name: DARYN HAYWARD Rep #: [id number] : 1975 M 47 From: Sy alanis MD PCP: SCARLETT Lee Status: REG ER Study: Foot min 3 Views Date of Exam: 12/18/22 Exam# [id number] Ordering Dr: Demarcus Angela DO STUDY: X-RAY - RIGHT FOOT CLINICAL: Male, 47 years old. 3 week history of pain and swelling. TECHNIQUE: 3 view(s) of the foot. COMPARISON: None. FINDINGS: Normal talus, calcaneus, and tarsal bones. Normal visualized subtalar, talonavicular, calcaneocuboid, tarsal and tarsometatarsal articulations. Normal metatarsi. Normal metatarsophalangeal joint of the great toe. Normal tibial and fibular sesamoid bones. Normal interphalangeal joint of the great toe. Normal phalanges of the great toe. Normal second through fifth metatarsophalangeal joints. Normal interphalangeal joints and phalanges of the lesser toes. The soft tissue structures are unremarkable. RAD/Foot min 3 Views IMPRESSION: Normal x-ray examination of the foot. Electronically Signed: Sy Leonard MD at 12:11 EST , CC: SCARLETT Albright; Dr. Demarcus Angela DO Peer Educator: Signed Normal [facility] Emergency Department Summary on 11-19-2022 Emergency Department Summary [facility] Medical Records Department [address] [place] [address] Emergency Department Summary 11/19/22 MR#: [id number] Acct: [id number] Name: DARYN HAYWARD Rep #: [id number] : 1975 47 From: Shayne Duffy MD PCP: SCARLETT Lee Status:REG ER Location: ED HPI History of Present Illness Chief Complaint: Cellulitis Narrative Narrative: 47-year-old male past medical history of diabetes presents with pain and swelling of his right foot at the base of his third and fourth digits. He denies any fevers or chills. No nausea or vomiting. He has had cellulitis in areas other than his foot for which he has been treated with cephalexin. He states over the last 2 days he noticed swelling and mild redness in between his toes, mainly between toes numbers 3 and 4 and pain on the ball of his foot in that area. It feels swollen to him. It is worse with weightbearing and walking. He denies any injury to the area. [facility] Medical History Diabetes Home Medications glimepiride 4 mg tablet 4 mg PO DAILY 05/27/18 [History Last Taken Unknown] metformin 500 mg tablet 500 mg PO DAILY 05/27/18 [History Last Taken Unknown] cephalexin 500 mg capsule 500 mg PO Q6 #40 CAPSULES 10/29/21 [Rx Last Taken Unknown] cephalexin 500 mg tablet 500 mg PO 4X/DAY #40 tabs 11/19/22 [Rx Last Taken Unknown] Allergy/AdvReac Type Severity Reaction Status Date / Time No Known Allergies Allergy Verified 11/19/22 20:20 Surgical History History of back surgery Hx of knee surgery Social History Smoking Status: Current every day smoker tobacco type: cigarettes ROS ROS ED ROS Narrative Constitutional: No fever, no chills. HEENT: No sore throat. No neck pain. No loss of vision. No rhinorrhea. Cardiovascular: No chest pain. No palpitations. No pedal edema. Respiratory: No cough, no shortness of breath. Abdominal: No abdominal pain. No nausea. No vomiting. Genitourinary: No dysuria. No hematuria. Musculoskeletal: No myalgias. Right foot pain and swelling at base of third and fourth digits. Neurologic: No headaches. No dizziness. No lightheadedness. Skin: No rash. No change in color. Psychiatric: No depression. No anxiety. EXAM Physical Exam Narrative Exam Narrative: Afebrile. Vital signs noted. Nontoxic-appearing. HEENT: Normocephalic. Atraumatic. PERRL, EOMI. Neck soft and supple. No point tenderness or step off. Cardiovascular: Regular rate and rhythm. No murmurs, rubs, or gallops appreciated. Respiratory: No tachypnea. Lungs clear to auscultation bilaterally. Gastrointestinal: Abdomen soft, nontender, with normoactive bowel sounds. No rebound or guarding. Neurological: Awake. Alert. Nonfocal, nonlateralizing. Skin: No rash. Normal color. No pallor. In between the digits on his right foot appears mild skin breakdown and erythema with tenderness to palpation. No purulent drainage. Good capillary refill. Musculoskeletal: No pedal edema. Full range of motion extremities. Palpable dorsalis pedis pulse right foot. Const Vital Signs: 11/19/22 20:17 Temperature 97.2 F L Temperature Source Temporal Pulse Rate 90 Respiratory Rate 15 Blood Pressure 163/95 H Blood Pressure Mean 117 Pulse Ox 97 Oxygen Delivery Method Room Air MDM MDM MDM Narrative Medical decision making narrative: I feel that the patient may have mild tinea pedis which caused skin breakdown between his toes which was a portal of entry for his cellulitis. He has mild erythema in between the toes and extends minimally into the foot. There is no crepitance and I feel that he can be treated with cephalexin. Given the hour the day, he was given his dose here in the emergency department and a prescription written for the next 10 days to take 4 times daily. He will follow-up with his primary care provider. I feel he can be discharged safely home with follow-up. Return instructions were reviewed. Disposition is discharged home in stable condition. Discharge Plan Triage Chief Complaint: Cellulitis ED Provider: Shayne Duffy Dx/Rx/DC Orders Clinical Impression: Cellulitis of foot, right, Tinea pedis Instructions: ED Cellulitis, ED Athlete's Foot Prescriptions: New cephalexin 500 mg tablet 500 mg PO 4X/DAY Qty: 40 0RF No Action glimepiride 4 MG tablet 4 mg PO DAILY metformin 500 MG tablet 500 mg PO DAILY cephalexin [cephalexin] 500 MG capsule 500 mg PO Q6 Qty: 40 0RF Primary Care Provider: Krystle Albright Referrals: Krystle Albright, PA [Primary Care Provider] - 5-7 Days Disposition Disposition: Home, Self Care What to do if you have Problems For any increased pain, shortness (more content not included)... Normal [facility] HEMOGLOBIN A1Con 09-13-2022 Glucose [Mass/Vol] 212 mg/dL Normal [facility] Comment on above: Order Comment: ACSO Performed By: #### H BA1E #### [address] [address] HbA1c (Bld) [Mass fraction] 9.0 % Abnormal [facility] Comment on above: Order Comment: ACSO Result Comment: Diag nosis of Diabetes-Adults Non-Diabetic: < or = 5.6% Increased risk for developing diabetes: 5.7-6.4% Diagnostic of diabetes: > or = 6.5% . Monitoring of Diabetes Age (y) Therapeutic Goal (%) Adults: >18 <7.0 Pediatrics: 13-18 <7.5 7-12 <8.0 0- 6 7.5-8.5 [employer]. Diabetes Care 33(S1), Dec 2009. Performed By: #### H BA1E #### [address] [address] No Panel Informationon 07-13 Radiology Study observation (narrative) [facility] XR Knee - bilateral 4 Viewso n 07-13-2021 IMPRESSION: Minimal osteoarthrosis of the knees.. Peer Educator: PSCB Transcribe Date/Time: Jul 13 2021 1:05P Dictated by : TITO KEBEDE MD This examination was interpreted and the report reviewed and electronically signed by: TITO KEBEDE MD on Jul 13 2021 1:06PM [facility] DIVISION OF RADIOLOGY * * *Final Report* * * DATE OF EXAM: Jul 13 2021 12:38PM WOX 5618 - XR KNEE 4V AP/PA/LAT/[facility] CHARITO / PROCEDURE REASON: multiple diagnoses * * * * Physician Interpretation * * * * Knee radiographs HISTORY: 46 years old Clinical information: Chronic pain of both knees Chronic pain of both knees Chronic pain of both knees pt states pain in both knees for many years with right being worse and 2 prev. surg. left just aches right pain is anterior inferior to the patella no inj TECHNIQUE: Images: XR KNEE 4V AP/PA/LAT/[facility] CHARITO Comparison: None. RESULT: Findings: LEFT KNEE: Narrowing of medial compartment joint space. Mild osteophyte formation involving the posterior aspect of the patella. No fracture or dislocation. No joint effusion. No soft tissue abnormality identified. RIGHT KNEE: Narrowing of medial compartment joint space. Osteophytes extending off the posterior aspect of the patella. No fracture or dislocation. No joint effusion. No soft tissue abnormality identified. DIVISION OF RADIOLOGY Provider, [facility] - 07/13/2021 * * *Final Report* * * DATE OF EXAM: Jul 13 2021 12:38PM WOX 5618 - XR KNEE 4V AP/PA/LAT/[facility] CHARITO / PROCEDURE REASON: multiple diagnoses * * * * Physician Interpretation * * * * Knee radiographs HISTORY: 46 years old Clinical information: Chronic pain of both knees Chronic pain of both knees Chronic pain of both knees pt states pain in both knees for many years with right being worse and 2 prev. surg. left just aches right pain is anterior inferior to the patella no inj TECHNIQUE: Images: XR KNEE 4V AP/PA/LAT/[facility] CHARITO Comparison: None. RESULT: Findings: LEFT KNEE: Narrowing of medial compartment joint space. Mild osteophyte formation involving the posterior aspect of the patella. No fracture or dislocation. No joint effusion. No soft tissue abnormality identified. RIGHT KNEE: Narrowing of medial compartment joint space. Osteophytes extending off the posterior aspect of the patella. No fracture or dislocation. No joint effusion. No soft tissue abnormality identified. IMPRESSION IMPRESSION: Minimal osteoarthrosis of the knees.. Peer Educator: PSCB Transcribe Date/Time: Jul 13 2021 1:05P Dictated by : TITO KEBEDE MD This examination was interpreted and the report reviewed and electronically signed by: TITO KEBEDE MD on Jul 13 2021 1:06PM EST [facility] XR Knee - bilateral 4 ViewsO rdered By: [facility] Provider on 07-13-2021 [facility] XR Lumbar spine 3 Viewson IMPRESSION: Postsurgical change. No complication. Spondylosis of the lumbar spine. Peer Educator: PSCB Transcribe Date/Time: Jul 13 2021 2:11P Dictated by : TITO KEBEDE MD This examination was interpreted and the report reviewed and electronically signed by: TITO KEBEDE MD on Jul 13 2021 2:13PM [facility] DIVISION OF RADIOLOGY * * *Final Report* * * DATE OF EXAM: Jul 13 2021 12:38PM WOX 5228 - XR LUMBAR 3V AP/LAT/L5-S1 / PROCEDURE REASON: Post laminectomy syndrome * * * * Physician Interpretation * * * * Lumbar spine radiograph HISTORY: 46 years old Clinical information: Post laminectomy syndrome pt states pain in low back for many years and getting worse, pain is in left si joint area no inj hardward put in around 05 TECHNIQUE: Images: XR LUMBAR 3V AP/LAT/L5-S1 Comparison: April 12, 2016 RESULT: Findings: Pedicle screws and associated posterior fixation rods extending from the L5 to the S1 level. Interbody graft and the L5-S1 intervertebral disc space. Surgical hardware appears to be intact. Narrowing of the L4-5 intervertebral disc space. Endplate osteophytes at multiple levels in the lumbar spine. No fracture. SI joints are intact. Paraspinous soft tissues are unremarkable in appearance. DIVISION OF RADIOLOGY Provider, Vikram sanchez [place] - 07/13/2021 * * *Final Report* * * DATE OF EXAM: Jul 13 2021 12:38PM WOX 5228 - XR LUMBAR 3V AP/LAT/L5-S1 / PROCEDURE REASON: Post laminectomy syndrome * * * * Physician Interpretation * * * * Lumbar spine radiograph HISTORY: 46 years old Clinical information: Post laminectomy syndrome pt states pain in low back for many years and getting worse, pain is in left si joint area no inj hardward put in around 05 TECHNIQUE: Images: XR LUMBAR 3V AP/LAT/L5-S1 Comparison: April 12, 2016 RESULT: Findings: Pedicle screws and associated posterior fixation rods extending from the L5 to the S1 level. Interbody graft and the L5-S1 intervertebral disc space. Surgical hardware appears to be intact. Narrowing of the L4-5 intervertebral disc space. Endplate osteophytes at multiple levels in the lumbar spine. No fracture. SI joints are intact. Paraspinous soft tissues are unremarkable in appearance. IMPRESSION IMPRESSION: Postsurgical change. No complication. Spondylosis of the lumbar spine. Peer Educator: PSCB Transcribe Date/Time: Jul 13 2021 2:11P Dictated by : TITO KEBEDE MD This examination was interpreted and the report reviewed and electronically signed by: TITO KEBEDE MD on Jul 13 2021 2:13PM [facility] XR HAND AND WRIST 6 VIEWS [facility] 10-12-2019 XR HAND AND WRIST 6 VIEWS RIGHT ORIGINAL XR HAND AND WRIST 6 VIEWS RIGHT CLINICAL STATEMENT: pain. COMPARISON: None FINDINGS: No acute fracture or dislocation is identified. Accessory ossicles or old ununited fracture are present at the ulnar styloid process. The joint spaces are maintained. There is no radiopaque foreign body. IMPRESSION: No acute fracture or dislocation. Interpreted By: Bhaskar Tavarez MD Preliminary Report By: Bhaskar Tavarez MD Electronically Signed By: Bhaskar Tavarez MD Dictated Date: 10/12/2019 1:01:01 PM Prelim Date: 10/12/2019 1:01:01 PM Sign Date: 10/12/2019 1:02:41 PM Ordering Provider:Maureen Zapata [facility] ([place]) [facility] 06-08-2019 Anion gap [Moles/Vol] 11 mmol/L 10 - 20 mmol/L [facility] Calcium [Mass/Vol] 8.4 mg/dL 8.4 - 10. 2 mg/dL [facility] Chloride [Moles/Vol] 104 mmol/L 98 - 108 mmol/L [facility] Creatinine [Mass/Vol] 0.96 mg/dL 0.5 - 1.3 mg/dL [facility] GFR/1.73 sq M predicted among non-blacks MDRD (S/P/Bld) [Vol rate/Area] The eGFR should be used for monitoring renal function only and not for medication dosing. [facility] GFR/1.73 sq M.predicted CKD-EPI (S/P/Bld) [Vol rate/Area] 97 >=60 mL/min/1.73 m2 [facility] Glucose [Mass/Vol] 256 mg/dL High 65 - 99 mg/dL [facility] HCO3 [Moles/Vol] 26 mmol/L 21 - 32 mmol/L [facility] Interpretation and review of laboratory results Abnormal [facility] Potassium [Moles/Vol] 4.0 mmol/L 3.5 - 5.1 mmol/L [facility] Sodium [Moles/Vol] 137 mmol/L 135 - 145 mmol/L [facility] Urea nitrogen [Mass/Vol] 16 mg/dL 8 - 25 mg/dL [facility] Urea nitrogen/Creatinine [Mass ratio] 16.7 mg/mg [facility] CBC WITH AUTO DIFFERENTIALon 06-08-2019 Basophils (Bld) [#/Vol] 0.06 10*3/uL [facility] Basophils/100 WBC (Bld) 0.8 % [facility] Eosinophils (Bld) [#/Vol] 0.11 10*3/uL [facility] Eosinophils/100 WBC (Bld) 1.5 % [facility] Erythrocyte distribution width (RBC) [Entitic vol] 12.4 % 11.6 - 14.8 % [facility] Hematocrit (Bld) [Volume fraction] 41.9 % 41 - 53 % [facility] Hemoglobin (Bld) [Mass/Vol] 15.1 g/dL 13.5 - 17.5 g/dL [facility] Immature granulocytes (Bld) [#/Vol] 0.04 10*3/uL [facility] Immature granulocytes/100 WBC (Bld) 0.50 % [facility] Comment on above: The IG parameter is the percentage of metamyelocytes, myelocytes, and promyelocytes. Lymphocytes (Bld) [#/Vol] 2.48 10*3/uL [facility] Lymphocytes/100 WBC (Bld) 34.1 % [facility] MCH (RBC) [Entitic mass] 31.7 pg 26 - 34 pg [facility] MCHC (RBC) [Mass/Vol] 36.0 g/dL 31 - 37 g/dL [facility] MCV (RBC) [Entitic vol] 87.8 fL 80 - 100 fL [facility] Monocytes (Bld) [#/Vol] 0.59 10*3/uL [facility] Monocytes/100 WBC (Bld) 8.1 % [facility] Neutrophils (Bld) [#/Vol] 4.00 10*3/uL [facility] Neutrophils/100 WBC (Bld) 55.0 % [facility] Nucleated RBC (Bld) [#/Vol] 0.00 10*3/uL [facility] Nucleated RBC/100 WBC (Bld) [Ratio] 0.0 % [facility] Platelet mean volume (Bld) [Entitic vol] 10.4 fL 9 - 15.5 fL [facility] Platelets (Bld) [#/Vol] 185 10*3/uL [facility] RBC (Bld) [#/Vol] 4.77 10*6/uL [facility] ealth WBC (Bld) [#/Vol] 7.28 10*3/uL [facility] POC Glucoseon 06-08-2019 Glucose [Mass/Vol] 300 mg/dL High 65 - 99 mg/dL [facility]al Interpretation and review of laboratory results Abnormal [facility] Vital Signs Date Time Vital Sign Value Performing Clinician Facility 08-27-2024 09:28-0400 Body height 186 cm Olivia Rawls [employer] Work Phone: [facility] 08-27-2024 09:28-0400 Body mass index (BMI) [Ratio] 30.44 kg/m2 Olivia Suppan [employer] Work Phone: [facility] 08-27-2024 09:28-0400 Body weight 105.3 kg Olivia Suppan [employer] Work Phone: [facility] 08-27-2024 09:28-0400 Diastolic blood pressure 70 mm[Hg] Olivia Suppan [employer] Work Phone: [facility] 08-27-2024 09:28-0400 Heart rate 88 /min Olivia Suppan [employer] Work Phone: [facility] 08-27-2024 09:28-0400 SaO2% (BldA) [Mass fraction] 93 % Olivia Suppan [employer] Work Phone: [facility] 08-27-2024 09:28-0400 Systolic blood pressure 128 mm[Hg] Olivia Suppan [employer] Work Phone: [facility] 06-26-2023 15:31-0400 Body weight 108.41 kg AMY Albright PA-C Work Phone: [facility] 06-26-2023 15:31-0400 Diastolic blood pressure 70 mm[Hg] NA Albright PA-C Work Phone: [facility] 06-26-2023 15:31-0400 Heart rate 68 /min NA Albright PA-C Work Phone: [facility] 06-26-2023 15:31-0400 SaO2% (BldA) [Mass fraction] 97 % NA Albright PA-C Work Phone: [facility] 06-26-2023 15:31-0400 Systolic blood pressure 116 mm[Hg] NA Albright PA-C Work Phone: [facility] 12-18-2022 10:58-0500 Body height 185.42 cm [facility] 12-18-2022 10:58-0500 Body mass index (BMI) [Ratio] 30.7 kg/m2 [facility] 12-18-2022 10:58-0500 Body temperature 96 [degF] [facility] 12-18-2022 10:58-0500 Body weight 105.68 kg [facility] 12-18-2022 10:58-0500 Diastolic blood pressure 103 mm[Hg] [facility] 12-18-2022 10:58-0500 Heart rate 56 /min [facility] 12-18-2022 10:58-0500 Respiratory rate 18 /min [facility] 12-18-2022 10:58-0500 SaO2% (BldA) [Mass fraction] 98 % [facility] 12-18-2022 10:58-0500 Systolic blood pressure 165 mm[Hg] [facility] 11-19-2022 20:17-0500 Body height 185.42 cm [facility] Work Phone: 11-19-2022 20:17-0500 Body mass index (BMI) [Ratio] 26.4 kg/m2 [facility] 11-19-2022 20:17-0500 Body temperature 97.2 [degF] [facility] 11-19-2022 20:17-0500 Body weight 90.71 kg [facility] 11-19-2022 20:17-0500 Diastolic blood pressure 95 mm[Hg] [facility] 11-19-2022 20:17-0500 Heart rate 90 /min [facility] 11-19-2022 20:17-0500 Respiratory rate 15 /min [facility] 11-19-2022 20:17-0500 SaO2% (BldA) [Mass fraction] 97 % [facility] 11-19-2022 20:17-0500 Systolic blood pressure 163 mm[Hg] [facility] 06-08-2019 10:26-0400 Body Temperature 98.71 [degF] [facility] 06-08-2019 10:26-0400 BP Diastolic 96 mm[Hg] [facility] 06-08-2019 10:26-0400 BP Systolic 151 mm[Hg] [facility] 06-08-2019 10:26-0400 Pulse (Heart Rate) 89 /min [facility] 06-08-2019 10:26-0400 Pulse Oximetry 97 % [facility] 06-08-2019 10:26-0400 Respiratory Rate 16 /min [facility] Encounters Encounter Date Encounter Type Care Provider Facility Start: 09-09-2024 End: 09-10-2024 ambulatory OLIVIA A SUPPAN Facility:[facility] Start: 09-09-2024 End: 09-09-2024 [facility] Work Phone: Neurology Start: 09-03-2024 End: 09-03-2024 Telephone encounter Olivia A Curly [employer] Work Phone: [facility] Comment on above: patient needs rx for glucose meter Start: 08-30-2024 End: 08-30-2024 Telephone encounter Olivia A Tjan [employer] Work Phone: [facility] Comment on above: Results Start: 08-27-2024 End: 08-27-2024 Telephone encounter Olivia A Suppan [employer] [facility] Start: 08-27-2024 End: 08-27-2024 ambulatory OLIVIA A SUPPAN Facility:[facility] Start: 08-27-2024 End: 08-27-2024 Periodic preventive med est patient 40-64yrs Olivia Rawls APRN.[employer] Work Phone: [facility] Comment on above: Lumbar disc disorder with myelopathy (Primary Dx); Encounter for screening examination for other mental health and behavioral disorders; Screening for diabetic retinopathy; Myofascial muscle pain; Hyperlipidemia, mixed; Hypertriglyceridemia; Type 2 diabetes mellitus with diabetic neuropathy, without long-term current use of insulin ([facility] Chronic fatigue Start: 08-26-2024 End: 08-26-2024 ambulatory BOY ALBRIGHT Facility:[facility] Start: 08-24-2024 End: 08-24-2024 Telephone encounter Krystle Albright PA-C Work Phone: [facility] Comment on above: Orders Refill Request Start: 07-02-2024 Refill Krystle Rosado on PA-C Work Phone: [facility] Comment on above: Refill Request Start: 10-06-2023 Refill Krystle Rosado on PA-C Work Phone: [facility] Comment on above: Refill Request Start: 06-26-2023 End: 06-26-2023 Patient encounter procedure Krystle Albright PA-C Work Phone: [facility] Comment on above: Effusion of right kn ee; S/P arthroscopic knee surgery; Chronic pain of both knees; Type 2 diabetes mellitus with diabetic neuropathy, without long-term current use of insulin (HCC) Start: 06-24-2023 End: 06-24-2023 Subsequent hospital visit by physician Xr [facility] Work Phone: Radiology Comment on above: Chronic pain of righ t knee [M25.561, G89.29] Start: 12-18-2022 End: 12-18-2022 Emergency department patient visit Krystle Albright Facility:[facility] Start: 12-18-2022 End: 12-18-2022 Emergency department patient visit [facility] Start: 11-19-2022 End: 11-19-2022 Emergency department patient visit Krystle Albright Facility:[facility] Start: 11-19-2022 End: 11-19-2022 Emergency department patient visit [facility] Start: 09-13-[address] Harsha Hilton II Facility:[id number] Start: 07-13-2021 End: 07-13-2021 Subsequent hospital visit by physician Lissette [facility] Work Phone: Radiology Comment on above: Chronic pain of both knees [M25.561, M25.562, G89.29] Start: 06-08-2019 End: 06-08-2019 Emergency department patient visit PHYSICIAN WAYNE [facility] Start: 06-08-2019 End: 06-08-2019 Emergency department patient visit Shruthi uMrillo Work Phone: [facility] Comment on above: Hyperglycemia (Prima ry Dx) Start: 12-30-2018 End: 12-30-2018 Patient encounter procedure MADINA CHILEL Facility:[facility] End: 06-15-2021 Patient encounter status AMY Albright PA-C Work Phone: [facility] Procedures Date Procedure Procedure Detail Performing Clinician Start: 06-24-2023 Radiologic exam knee complete 4/more views Concha Ervin PA-C Work Phone: Start: 12-18-2022 X-ray of both feet Start: 07-13-2021 Radex spine lumbosacral 2/3 views Krystle Albright PA-C Work Phone: Start: 06-08-2019 Basic metabolic 2000 panel - Serum or Plasma Shruthi Murillo Work Phone: Start: 06-08-2019 Complete blood count with white cell differential, automated Shruthi Murillo Work Phone: Start: 06-08-2019 Complete blood count with white cell differential, manual Shruthi Murillo Work Phone: Start: 06-08-2019 Glucose [Mass/volume] in Blood [facility] History of operative procedure on knee S/P arthroscopic knee surgery Krystle Albright PA-C Work Phone: Plan of Treatment Date Care Activity Detail Author Start: 08-27-2025 Anxiety Screening Anxiety Screening [facility] Start: 08-27-2025 Covid-19 Vaccine ( season) Covid-19 Vaccine ( season) [facility] Comment on above: Postponed from 08/01/2024 (Declined at t his time) Start: 08-27-2025 Glaucoma screening Dilated Retinal Exam [facility] Start: 08-27-2025 Hepatitis B Vaccine (1 of 3 - 19+ 3-dose series) Hepatitis B Vaccine (1 of 3 - 19+ 3-dose series) [facility] Comment on above: Postponed from 1996 (Declined at t his time) Start: 08-27-2025 Pneumococcal vaccination Pneumococcal Vaccine (1 of 2 - PCV) [facility] Comment on above: Postponed from 1983 (Declined at t his time) Start: 08-27-2025 Urine microalbumin profile DTaP,Tdap,Td Vaccine (1 - Tdap) [facility] Comment on above: Postponed from 1996 (Declined at t his time) Start: 08-26-2025 Hepatitis B surface antibody level LDL Cholesterol [facility] Start: 05-30-2025 [facility]: [facility] from 08/01/2024 (Declined at t his time) Start: 02-24-2025 End: 02-24-2025 Patient encounter procedure 02/24/2025 9:20 AM EDT Office Visit Family [facility] [address], [place] [id number] Olivia Rawls APRN[employer] [address] [place], [place] [address] 6 month f/u Family [facility] Comment on above: 6 month f/u Start: 02-23-2025 Hemoglobin A1c measurement HbA1C [facility] Start: 09-10-2024 End: 09-10-2024 Patient encounter procedure Neurology Comment on above: Chronic fatigue [R53.82] Chronic fatigue Start: 08-28-2024 End: 08-27-2025 HOME SLEEP APNEA TEST (HSAT) HOME SLEEP APNEA TEST (HSAT) Procedures Routine Chronic fatigue Expected: 08/28/2024, Expires: 08/27/2025 [facility] Comment on above: Expected: 08/28/2024, Expires: 5 Start: 08-27-2024 End: 11-26-2024 Cobalamin (Vitamin B12) [Mass/volume] in Serum or Plasma [facility] Comment on above: Expected: 08/27/2024, Expires: 4 Start: 08-27-2024 End: 11-26-2024 JOHN MCKEON PANEL [facility] Work Phone: Comment on above: Expected: 08/27/2024, Expires: Start: 08-27-2024 End: 11-26-2024 Magnesium [Mass/volume] in Serum or Plasma [facility] Comment on above: Expected: 08/27/2024, Expires: Start: 08-27-2024 End: 11-26-2024 Thyrotropin [Units/volume] in Serum or Plasma [facility] Comment on above: Expected: 08/27/2024, Expires: Start: 08-27-2024 End: 11-26-2024 Thyroxine (T4) free [Mass/volume] in Serum or Plasma [facility] Comment on above: Expected: 08/27/2024, Expires: Start: 08-27-2024 End: 08-27-2024 Patient encounter procedure 08/27/2024 9:20 AM EDT Office Visit [facility] [address], [place] [id number] Olivia Rawls APRN[employer] [address] [place], [place] [id number] [facility] Comment on above: physical Start: 08-24-2024 End: 11-23-2024 CBC panel - Blood by Automated count COMPLETE BLOOD COUNT Lab Routine Type 2 diabetes mellitus with diabetic neuropathy, without long-term current use of insulin (HCC) Hypertriglyceridemia Hyperlipidemia, mixed Low HDL (under 40) Depressive disorder Expected: 08/24/2024, Expires: 11/23/2024 [facility] Comment on above: Expected: 08/24/2024, Expires: Start: 08-24-2024 End: 11-23-2024 Comprehensive metabolic 2000 panel - Serum or Plasma COMPREHENSIVE METABOLIC PANEL Lab Routine Type 2 diabetes mellitus with diabetic neuropathy, without long-term current use of insulin (HCC) Hypertriglyceridemia Hyperlipidemia, mixed Low HDL (under 40) Depressive disorder Expected: 08/24/2024, Expires: 11/23/2024 [facility] Comment on above: Expected: 08/24/2024, Expires: Start: 08-24-2024 End: 11-23-2024 Hemoglobin A1c in Blood HEMOGLOBIN A1C Lab Routine Type 2 diabetes mellitus with diabetic neuropathy, without long-term current use of insulin (HCC) Expected: 08/24/2024, Expires: 11/23/2024 [facility] Work Phone: Comment on above: Expected: 08/24/2024, Expires: Start: 08-24-2024 End: 11-23-2024 Lipid 1996 panel - Serum or Plasma LIPID PANEL BASIC Lab Routine Hypertriglyceridemia Hyperlipidemia, mixed Low HDL (under 40) Expected: 08/24/2024, Expires: 11/23/2024 [facility] Comment on above: Expected: 08/24/2024, Expires: Start: 08-24-2024 End: 11-23-2024 Magnesium [Mass/volume] in Serum or Plasma MAGNESIUM Lab Routine Type 2 diabetes mellitus with diabetic neuropathy, without long-term current use of insulin (HCC) Expected: 08/24/2024, Expires: 11/23/2024 [facility] Comment on above: Expected: 08/24/2024, Expires: Start: 08-24-2024 End: 11-23-2024 Microalbumin/Creatinin e [Mass Ratio] in Urine ALBUMIN/CREATININE RATIO, URINE Lab Routine Type 2 diabetes mellitus with diabetic neuropathy, without long-term current use of insulin (HCC) Expected: 08/24/2024, Expires: 11/23/2024 [facility] Comment on above: Expected: 08/24/2024, Expires: 4 Start: 08-01-2024 Covid-19 Vaccine ( season) Covid-19 Vaccine ( season) [facility] Start: 08-01-2024 Covid-19 Vaccine () Covid-19 Vaccine () [facility] Start: 08-01-2024 [facility] Start: 07-27-2024 End: 07-27-2024 Patient encounter procedure 07/27/2024 8:40 AM EDT Office Visit [facility] [address], [place] [id number] Krystle Albright PA-C [address] [facility] [place] [id number] medication refills [facility] Comment on above: medication refills Start: 06-26-2024 Annual PCP Team Chronic Disease Visit Annual PCP Team Chronic Disease Visit [facility] Start: 04-19-2024 Hepatitis B surface antibody level LDL Cholesterol [facility] Start: 09-26-2023 End: 11-26-2023 Basic metabolic 2000 panel - Serum or Plasma BASIC METABOLIC PNL Lab Routine Type 2 diabetes mellitus with diabetic neuropathy, without long-term current use of insulin (HCC) Expected: 09/26/2023, Expires: 11/26/2023 [facility] Work Phone: Comment on above: Expected: 09/26/2023, Expires: 3 Start: 09-26-2023 End: 11-26-2023 Hemoglobin A1c in Blood HGB A1C Lab Routine Type 2 diabetes mellitus with diabetic neuropathy, without long-term current use of insulin (HCC) Expected: 09/26/2023, Expires: 11/26/2023 [facility] Work Phone: Comment on above: Expected: 09/26/2023, Expires: 3 Start: 09-24-2023 Hemoglobin A1c measurement HbA1C [facility] Start: 09-24-2023 Hemoglobin A1c/Hemoglobin.total in Blood HbA1C [facility] Start: 08-01-2023 Covid-19 Vaccine ( season) Covid-19 Vaccine ( season) [facility] Start: 08-01-2023 Influenza vaccination [facility] Start: 06-26-2023 End: 08-26-2023 ALBUMIN/CREAT RATIO RND UR ALBUMIN/CREAT RATIO RND UR Lab Routine Type 2 diabetes mellitus with diabetic neuropathy, without long-term current use of insulin (HCC) Expected: 06/26/2023, Expires: 08/26/2023 [facility] Work Phone: Comment on above: Expected: 06/26/2023, Expires: Start: 07-13-2022 3 comp foot exam completed Diabetic Foot Exam [facility] Start: 07-13-2022 Diabetic foot examination Diabetic Foot Exam [facility] Start: 2022 Cologuard (FIT-DNA) Cologuard (FIT-DNA) [facility] Start: 2022 Colonoscopy Colonoscopy [facility] Start: 2022 Colorectal Cancer Screening Colorectal Cancer Screening [facility] Start: [address] Colonography [facility] Start: 2022 Fecal Occult Blood Fecal Occult Blood [facility] Start: 2022 Screening for malignant neoplasm of colon [facility] Start: 2022 Sigmoidoscopy Sigmoidoscopy [facility] Start: 01-05-2019 Glaucoma screening Dilated Retinal Exam [facility] Start: 01-05-2019 Hepatitis C antibody, confirmatory test Dilated Retinal Exam [facility] Start: 04-29-2018 Hepatitis B screening URINE ALBUMIN:CREATININE RATIO [facility] Start: 03-07-2017 Hepatitis B screening Urine Albumin:Creatinine Ratio [facility] Start: 1996 Hepatitis B Vaccine (1 of 3 - 19+ 3-dose series) Hepatitis B Vaccine (1 of 3 - 19+ 3-dose series) [facility] Start: 1996 Urine microalbumin profile [facility] Start: 1995 Anxiety Screening Anxiety Screening [facility] Start: 1983 PNEUMOCOCCAL (1 - PCV) PNEUMOCOCCAL (1 - PCV) [facility] Start: 1983 Pneumococcal vaccination [facility] Start: 1977 Covid-19 Vaccine (#1) Covid-19 Vaccine (#1) [facility] Start: 1977 HEPATITIS B (1 of 3 - 3-dose series) HEPATITIS B (1 of 3 - 3-dose series) [facility] Start: 1977 Hepatitis B Vaccine (1 of 3 - 3-dose series) Hepatitis B Vaccine (1 of 3 - 3-dose series) [facility] Patient Education [facility] Work Phone: Patient referral [facility] Immun[facility] Immunization Date Immunization Notes Care Provider Fa best 02-09-2018 influenza virus vacc ine, unspecified formulation AMY Albright PA-C Work Phone: [facility] Payers Date Payer Category Payer Private Health Insurance [employer]ICAID [facility] [id number] 2023-Present [address] [address] [place] [address] Medicaid [id number] 2023 Medicaid [id number] 2022 Unknown [id number] 2018 Self-pay 1975 Unknown [id number] Unknown [id number] Unknown [id number] Unknown [facility] COMM[employer] PLAN [id number] Unknown [id number] Unknown [id number] Social History Date Type Detail Facility Start: 06-08-2019 End: 06-24-2023 Tobacco smoking status NHIS Current every day smoker [facility] Work Phone: Start: 06-08-2019 History SDOH Alcohol Frequency 1 [facility] Start: 1975 Sex Assigned At Not on file [facility] Start: 11-19-2022 End: 12-18-2022 Tobacco smoking status NHIS Unknown if ever smoked [facility] Start: 10-29-2021 Occasional [facility] Start: 10-29-2021 None [facility] Start: 10-29-2021 Alone [facility] Start: 10-29-2021 Cigarettes [facility] Start: 1975 Sex Assigned At Male W [facility] History of tobacco use Cigarette Smoker C [facility] Work Phone: Start: 04-22-2023 End: 06-24-2023 Cigarettes smoked current (pack per day) - Reported 0.5 [facility] Start: 06-24-2023 End: 08-27-2024 Tobacco use and exposure Smokeless tobacco non-user [facility] Work Phone: Start: 06-26-2023 End: 08-27-2024 Alcohol intake Current drinker of alcohol (finding) [facility] Start: 04-22-2023 End: 06-26-2023 Tobacco use panel [facility] Adult Depression Screening Assessment 0 [facility] Start: 12-06-2014 End: 06-24-2023 Tobacco Comment down to 4-5 cigs per day [facility] Start: 12-06-2014 Alcohol Comment [facility] Start: 06-13-2021 End: 07-13-2021 Exposure to SARS-CoV-2 (event) Not sure [facility] Medical Equipment Procedure Code Equipment Code Equipment Origin al Text Equipment Identifier Dates [place] Ped Mon [id number] Ti - [id number] Start: 05-07-2010 Comment on above: Description: monarch bolt set 6.25 x 50 Cage Lumbar I/F 9x21mm - [id number] Start: 05-07-2010 Comment on above: Description: brantig an cages 9x9x21 Nut Sphr Domed T i - [id number] Start: 05-07-2010 Comment on above: Description: monarch domed nut Ti Plt Bone 1 Slot Ti - [id number] Start: 05-07-2010 Comment on above: Description: spine p late one slot Ti Washer Polyaxial Mon Ti - [id number] Start: 05-07-2010 Comment on above: Description: monarch washer polyaxial Ti Test blood sugar (s) 4 times daily. Dx: Type 2 DM - Uncontrolled E11.65 Insulin: No [id number], [id number], [id number] Start: 02-09-2018 End: 08-27-2024 Comment on above: Test blood sugar(s) 4 times daily. Dx: Type 2 DM - Uncontrolled E11.65 Insulin: No Clinical Notes 08-27-2016 to 02-17-2025 Nancy Patel - 09/09/2024 4:13 PM Nakul Earl - 09/09/2024 1:19 PM Autumn Daniels MD - 09/09/2024 9:06 AM Edelmira Ron - 09/09/2024 8:59 AM EDTPatient Instructions Note Date & Type Note Facility 02-17-2025 Note HNO ID: [id number] Author: ?, ?, ? Service: ? Author Type: ? Type: Progress Notes Filed: 02/17/2025 15:49 Note Text: Pt on billing list for $4500 Called pt and LVM on work phone. Not able to call out on the patient mobile/home phone. Pt has NO MYC [facility] 10-21-2024 Note HNO ID: [id number] Author: ?, ?, ? Service: ? Author Type: ? Type: Progress Notes Filed: 10/21/2024 11:04 Note Text: Pt stated that he returned back package. I asked how did he return it back and he stated that he thinks that he returned it back to [employer]. I informed patient that if he returned it back via post office then he would need to contact them to retrieve package back and send it via [employer]. Stated that he will look into it and give a phone call back. 10/21 [facility] 09-28-2024 Note HNO ID: [id number] Author: ?, ?, ? Service: ? Author Type: ? Type: Progress Notes Filed: 09/28/2024 15:32 Note Text: LVM NO MC [facility] 09-17-2024 Note HNO ID: [id number] Author: ?, ?, ? Service: ? Author Type: ? Type: Progress Notes Filed: 09/28/2024 15:30 Note Text: LvM regarding device [facility] 09-15-2024 Note HNO ID: [id number] Author: ?, ?, ? Service: ? Author Type: ? Type: Progress Notes Filed: 09/15/2024 20:27 Note Text: PT confirms receiving kit but had not gotten a chance tocomplete it. May possibly send to [employer] tomorrow or day after. He was made aware of being on the billing list. [facility] 09-09-2024 Note HNO ID: [id number] Author: ?, ?, ? Service: ? Author Type: ? Type: Progress Notes Filed: 09/09/2024 21:34 Note Text: Nomad # [id number], date shipped out 09-09-24 [employer] only Tracking mailout: [id number] Tracking return: [id number] [facility] 09-09-2024 History of Present illness Narrative Nomad # [id number], date shipped out 09-09-24 [employer] only Tracking mailout: [id number] Tracking return: [id number] SPOKE W/ PT - SENDING [employer] 09/10 September 09, 2024 Standing PSG Orders signed in the last 90 days None Future PSG Orders signed in the last 90 days Ordered Auth. provider HOME SLEEP APNEA TEST (HSAT) [[id number]] 08/27/24 Olivia Rawls APRN.[employer] diagnoses: Chronic fatigue [R53.82] Q: Indications: A: Obstructive sleep apnea Q: STOP-BANG conditions - Select All That Apply: A: GENDER = male Q: Current use of supplemental oxygen during sleep period?: A: No All Prior Sleep Studies (past 365 days) 08/27/2024 09:58 Sleep Studies HOME SLEEP APNEA TEST (HSAT) HOME SLEEP APNEA TEST (HSAT) Order Status: Ordered, Future Expected: 08/28/2024 Expires: 08/27/25 BMI Readings from Last 2 Encounters: 08/27/24 : 30.44 kg/m 06/26/23 : 30.69 kg/m PAST MEDICAL HISTORY Diagnosis Date Abscess gluteal Acute diverticulitis 05/20/2013 Acute meniscal tear of left knee medial Back pain Intervertebral disc herniation Pilonidal cyst with abscess 08/25/2012 Preop exam for internal medicine The medical record was reviewed to determine if the proposed sleep study conforms to the AASM Practice Parameters for the Indications for Polysomnography and Related Procedures, or if the sleep study is indicated for other reasons. Indications for study: CALEB suspected without comorbid medical or sleep disorders Sleep study to be performed: Home Sleep Apnea Test (HSAT) Special instructions: None-follow laboratory protocol Nissa Falcon [facility] Staff Note: I have read the above protocol, edited as needed, and agree to the plan. Autumn He MD 9:34 PM, 09/09/2024 September 09, 2024 An order has been received for Home Sleep Apnea Test (HSAT) from Olivia Cruz a B. [facility] Staff. Visit prep complete. Comments :No The sleep study is scheduled for 09/10. Insurance: Payor: HUMANA / Plan: [employer] MEDICAID [facility] / Product Type: Medicaid / Payer/Plan Subscr Sex Relation Sub. Ins. ID Effective Group Num 1. [employer] - DERIK* DAYRN HAYWARD Nichole 1975 Male Self [id number] [birth year] [address] [address] Edelmira Urbina documented in this encounter [facility] 09-09-2024 Note HNO ID: [id number] Author: ?, ?, ? Service: ? Author Type: ? Type: Progress Notes Filed: 09/09/2024 21:34 Note Text: SPOKE W/ PT - SENDING [employer] 09/10 [facility] 09-09-2024 Note HNO ID: [id number] Author: AUTUMN HE MD Service: ? Author Type: Physician Type: Progress Notes Filed: 09/09/2024 21:34 Note Text: September 09, 2024 Standing PSG Orders signed in the last 90 days None Future PSG Orders signed in the last 90 days Ordered Auth. provider HOME SLEEP APNEA TEST (HSAT) [[id number]] 08/27/24 Olivia Rawls APRN.[employer] Ass[employer]. diagnoses: Chronic fatigue [R53.82] Q: Indications: A: Obstructive sleep apnea Q: STOP-BANG conditions - Select All That Apply: A: GENDER = male Q: Current use of supplemental oxygen during sleep period?: A: No All Prior Sleep Studies (past 365 days) 08/27/2024 09:58 Sleep Studies HOME SLEEP APNEA TEST (HSAT) HOME SLEEP APNEA TEST (HSAT) Order Status: Ordered, Future Expected: 08/28/2024 Expires: 08/27/25 BMI Readings from Last 2 Encounters: 08/27/24 : 30.44 kg/m? 06/26/23 : 30.69 kg/m? PAST MEDICAL HISTORY Diagnosis Date Abscess gluteal Acute diverticulitis 05/20/2013 Acute meniscal tear of left knee medial Back pain Intervertebral disc herniation Pilonidal cyst with abscess 08/25/2012 Preop exam for internal medicine The medical record was reviewed to determine if the proposed sleep study conforms to the AASM Practice Parameters for the Indications for Polysomnography and Related Procedures, or if the sleep study is indicated for other reasons. Indications for study: CALEB suspected without comorbid medical or sleep disorders Sleep study to be performed: Home Sleep Apnea Test (HSAT) Special instructions: None-follow laboratory protocol [facility] Staff Note: I have read the above protocol, edited as needed, and agree to the plan. Autumn He MD 9:34 PM, 09/09/2024 [facility] 09-09-2024 Note HNO ID: [id number] Author: ?, ?, ? Service: ? Author Type: ? Type: Progress Notes Filed: 09/09/2024 21:34 Note Text: September 09, 2024 An order has been received for Home Sleep Apnea Test (HSAT) from Olivia Cruz a B. [facility] Staff. Visit prep complete. Comments :No The sleep study is scheduled for 09/10. Insurance: Payor: HUMANA / Plan: [employer]NA MEDICAID [facility] / Product Type: Medicaid / Payer/Plan Subscr Sex Relation Sub. Ins. ID Effective Group Num 1. [employer] - DERIK* DARYN HAYWARD 1975 Male Self [id number] [birth year] [address] [address] Edelmira Urbina [facility] 09-03-2024 Telephone encounter Note Order signed for glucometer [facility] 09-03-2024 Miscellaneous Notes Order signed for glucometer [facility] calling on 08/27/2024 rx were sent for lancets and test strips but no glucose meter. Asking for rx for generic meter. Pending rx to file to pharmacy. Please advise documented in this encounter [facility] 09-03-2024 Telephone encounter Note [facility] calling on 08/27/2024 rx were sent for lancets and test strips but no glucose meter. Asking for rx for generic meter. Pending rx to file to pharmacy. Please advise [facility] 08-30-2024 Telephone encounter Note Patient returned call and went over results notes from Nadia Rawls WAITSTAFF few times until he understood. Went over other results below in this note again and aware rx sent to pharmacy with understanding. [facility] 08-30-2024 Miscellaneous Notes Patient returned call and went over results notes from Nadia Rawls WAITSTAFF few times until he understood. Went over other results below in this note again and aware rx sent to pharmacy with understanding. Attempted to call pt, no answer, mailbox is full ----- Message from Olivia Rawls sent at 08/30/2024 12:41 PM EDT ----- John-Mckeon virus was positive. No acute infection although he has been infected in the past. This can cause fatigue. Since it is viral, there is no treatment. Patient was made aware of the results. Patient verbalizes understanding. He is asking for refill of cymbalta. Sri Lopez Ma ----- Message from Olivia Rawls sent at 08/30/2024 8:00 AM EDT ----- Thyroid screening, magnesium, and B12 are all normal. documented in this encounter [facility] 08-30-2024 Telephone encounter Note Attempted to call pt, no answer, mailbox is full [facility] 08-30-2024 Telephone encounter Note ----- Message from Olivia Rawls sent at 08/30/2024 12:41 PM EDT ----- John-Mckeon virus was positive. No acute infection although he has been infected in the past. This can cause fatigue. Since it is viral, there is no treatment. [facility] 08-30-2024 Telephone encounter Note Patient was made aware of the results. Patient verbalizes understanding. He is asking for refill of cymbalta. Sri Lopez Ma [facility] 08-30-2024 Telephone encounter Note ----- Message from Olivia Rawls sent at 08/30/2024 8:00 AM EDT ----- Thyroid screening, magnesium, and B12 are all normal. [facility] 08-27-2024 Olivia Freeman APRN.GABE - 08/27/2024 10:00 AM EDT 1) Home sleep study 2) Start duloxetine 30 mg daily for back pain, let me know in 2-3 weeks if you need to increase dose 3) Labs today 4) Glucometer and testing supplies sent to [facility] 5) Follow up in 6 months documented in this encounter [facility] 08-27-2024 Note HNO ID: [id number] Author: OLIVIA RAWLS APRN.CNP Service: ? Author Type: Clinical Nurse Specialist Type: Progress Notes Filed: 08/27/2024 10:02 Note Text: Chief Reason For Appointment Patient presents with: Physical Daryn Hayward is a 49 year old male who presents for annual exam. Last office visit date: 06/26/2023 Accompanied By self only Have you had any critical events, hospital stays, ER visits, surgeries or procedures since your last visit here in our office: No Specialists/Other Healthcare Providers Seen: Patient Care Team: Krystle Albright PA-C as PCP - General (Family Medicine) Concerns today: None HPI Here today for wellness check Active Problems ACTIVE PROBLEM LIST Hyperlipidemia, Mixed - 03/08/2022 Low Hdl (Under 40) - 03/08/2022 Hypertriglyceridemia - 03/08/2022 Depressive Disorder - 06/15/2021 Postlaminectomy Syndrome - 08/27/2016 Myofascial Muscle Pain - 08/27/2016 Type 2 Diabetes Mellitus With Diabetic Neuropathy, Without Long-Term Current Use of Insulin (Hcc) - 03/08/2016 Intervertebral Disc Herniation Tobacco Abuse - 01/08/2010 Lumbosacral Spondylosis Without Myelopathy - 01/08/2010 Lumbosacral Neuritis - 01/08/2010 Herniated Nucleus Pulposus, Lumbar - 01/08/2010 Lumbar Disc Disorder With Myelopathy - 09/18/2009 ROS: REVIEW OF SYSTEMS GENERAL: No weight loss, + malaise, no fevers/chills HEENT: Negative for frequent or significant headaches, No changes in hearing or vision. Has had an eye exam within a year NECK: Negative for lumps, goiter, pain and significant neck swelling RESPIRATORY: Negative for cough, hemoptysis, wheezing, dyspnea or shortness of breath CARDIOVASCULAR: Negative for chest pain, leg swelling, orthopnea, or palpitations GI: No nausea, vomiting, or diarrhea/constipation. No hematochezia/melena. No heartburn or reflux symptoms. : No history of dysuria, frequency or incontinence MUSCULOSKELETAL: Negative for joint pain or swelling. Stiffness across low back. No radiation of pain. Wears tool bed, a lot of lifting. 07/10 SKIN: Negative for lesions, rash, and itching ENDOCRINE: Negative for cold or heat intolerance, polyuria, polydipsia and goiter NEURO: No history of headaches, syncope, paralysis, seizures or tremors MOOD: Negative for depression, anxiety, or suicidal ideation. PAST MEDICAL HISTORY Diagnosis Date Abscess gluteal Acute diverticulitis 05/20/2013 Acute meniscal tear of left knee medial Back pain Intervertebral disc herniation Pilonidal cyst with abscess 08/25/2012 Preop exam for internal medicine PAST SURGICAL HISTORY Procedure Laterality Date ARTHROSCOPY KNEE DIAGNOSTIC W/WO SYNOVIAL BX SPX 12/13/2014 Arthroscopy, knee left, partial medial meniscectomy PAST SURGICAL HISTORY OF 3 discectomy, lumbar REVJ TOT KNEE ARTHRP FEMANDENTIRE TIBIAL COMPONE 2006 torn maniscus right knee Subcutaneous nodule 01/24/10 fatty tissue removed from right shoulder Medication List Current Outpatient Medications Medication Sig Dispense Refill glimepiride (AMARYL) 4 mg tablet Take 1 tablet by mouth daily with breakfast. 30 tablet 0 metFORMIN ER (GLUCOPHAGE XR) 500 mg 24 hr tablet Take 2 tablets by mouth daily with breakfast. 60 tablet 0 rosuvastatin (CRESTOR) 5 mg tablet Take 1 tablet by mouth once daily. 90 tablet 3 dulaglutide (TRULICITY) 0.75 mg/0.5 mL pen injector Inject 0.75 mg subcutaneously one time a week. Inject dose once per week. Discard Pen After (Patient not taking: Reported on 08/27/2024) 4 Each 3 COMPOUNDED PRESCRIPTION Check blood sugar in am fasting and before dinner 1 Device 0 blood sugar diagnostic (BLOOD GLUCOSE TEST) test strip Test blood sugar(s) 4 times daily. Dx: Type 2 DM - Uncontrolled E11.65 Insulin: No 50 Strip 11 Lancets lancets Test blood sugar(s) 4 times daily. Dx: Type 2 DM - Uncontrolled E11.65 Insulin: No 100 Each 11 No current facility-administered medications for this visit. Weight Summary: Weight Change: Body mass index is 30.44 kg/m?. Last Wt 08/27/24 : 105.3 kg (232 lb 2.3 oz) 06/26/23 : 108.4 kg (239 lb) 06/24/23 : 110.7 kg (244 lb) 02/05/22 : 101.5 kg (223 lb 12.8 oz) 07/13/21 : 100.7 kg (222 lb) Physical Exam: General Appearance: tired appearing, alert and oriented. Skin: no suspicious lesion, no rash, no open sores Head: normocephalic, no obvious masses, lesions, tenderness or abnormalities. Eyes: Anicteric sclera. Pupils are equally round and reactive to light. Extraocular movements are intact. No nystagmus. Fundi benign. Ears: external ears normal, canals with some cerumen impacted right ear only, TM's unable to visualize. Hearing to conversational voice intact. Oropharynx: lips, mucosa, and tongue normal, oropharynx normal. Neck: trachea midline, thyroid without mass or nodularity, thyroid moves normally with swallow, no regional lymphadenopathy. Carotids normal upstroke, no bruit or thrill. Back: a (more content not included)... [facility] 08-27-2024 History of Present illness Narrative Chief Reason For Appointment Patient presents with: Physical Daryn Hayward is a 49 year old male who presents for annual exam. Last office visit date: 06/26/2023 Accompanied By self only Have you had any critical events, hospital stays, ER visits, surgeries or procedures since your last visit here in our office: No Specialists/Other Healthcare Providers Seen: Patient Care Team: Krystle Albright PA-C as PCP - General (Family Medicine) Concerns today: None HPI Here today for wellness check Active Problems ACTIVE PROBLEM LIST Hyperlipidemia, Mixed - 03/08/2022 Low Hdl (Under 40) - 03/08/2022 Hypertriglyceridemia - 03/08/2022 Depressive Disorder - 06/15/2021 Postlaminectomy Syndrome - 08/27/2016 Myofascial Muscle Pain - 08/27/2016 Type 2 Diabetes Mellitus With Diabetic Neuropathy, Without Long-Term Current Use of Insulin (Hcc) - 03/08/2016 Intervertebral Disc Herniation Tobacco Abuse - 01/08/2010 Lumbosacral Spondylosis Without Myelopathy - 01/08/2010 Lumbosacral Neuritis - 01/08/2010 Herniated Nucleus Pulposus, Lumbar - 01/08/2010 Lumbar Disc Disorder With Myelopathy - 09/18/2009 ROS: REVIEW OF SYSTEMS GENERAL: No weight loss, + malaise, no fevers/chills HEENT: Negative for frequent or significant headaches, No changes in hearing or vision. Has had an eye exam within a year NECK: Negative for lumps, goiter, pain and significant neck swelling RESPIRATORY: Negative for cough, hemoptysis, wheezing, dyspnea or shortness of breath CARDIOVASCULAR: Negative for chest pain, leg swelling, orthopnea, or palpitations GI: No nausea, vomiting, or diarrhea/constipation. No hematochezia/melena. No heartburn or reflux symptoms. : No history of dysuria, frequency or incontinence MUSCULOSKELETAL: Negative for joint pain or swelling. Stiffness across low back. No radiation of pain. Wears tool bed, a lot of lifting. 07/10 SKIN: Negative for lesions, rash, and itching ENDOCRINE: Negative for cold or heat intolerance, polyuria, polydipsia and goiter NEURO: No history of headaches, syncope, paralysis, seizures or tremors MOOD: Negative for depression, anxiety, or suicidal ideation. PAST MEDICAL HISTORY Diagnosis Date Abscess gluteal Acute diverticulitis 05/20/2013 Acute meniscal tear of left knee medial Back pain Intervertebral disc herniation Pilonidal cyst with abscess 08/25/2012 Preop exam for internal medicine PAST SURGICAL HISTORY Procedure Laterality Date ARTHROSCOPY KNEE DIAGNOSTIC W/WO SYNOVIAL BX SPX 12/13/2014 Arthroscopy, knee left, partial medial meniscectomy PAST SURGICAL HISTORY OF 310 discectomy, lumbar REVJ TOT KNEE ARTHRP FEM&ENTIRE TIBIAL COMPONE 2006 torn maniscus right knee Subcutaneous nodule 01/24/10 fatty tissue removed from right shoulder Medication List Current Outpatient Medications Medication Sig Dispense Refill glimepiride (AMARYL) 4 mg tablet Take 1 tablet by mouth daily with breakfast. 30 tablet 0 metFORMIN ER (GLUCOPHAGE XR) 500 mg 24 hr tablet Take 2 tablets by mouth daily with breakfast. 60 tablet 0 rosuvastatin (CRESTOR) 5 mg tablet Take 1 tablet by mouth once daily. 90 tablet 3 dulaglutide (TRULICITY) 0.75 mg/0.5 mL pen injector Inject 0.75 mg subcutaneously one time a week. Inject dose once per week. Discard Pen After (Patient not taking: Reported on 08/27/2024) 4 Each 3 COMPOUNDED PRESCRIPTION Check blood sugar in am fasting and before dinner 1 Device 0 blood sugar diagnostic (BLOOD GLUCOSE TEST) test strip Test blood sugar(s) 4 times daily. Dx: Type 2 DM - Uncontrolled E11.65 Insulin: No 50 Strip 11 Lancets lancets Test blood sugar(s) 4 times daily. Dx: Type 2 DM - Uncontrolled E11.65 Insulin: No 100 Each 11 No current facility-administered medications for this visit. Weight Summary: Weight Change: Body mass index is 30.44 kg/m . Last Wt 08/27/24 : 105.3 kg (232 lb 2.3 oz) 06/26/23 : 108.4 kg (239 lb) 06/24/23 : 110.7 kg (244 lb) 02/05/22 : 101.5 kg (223 lb 12.8 oz) 07/13/21 : 100.7 kg (222 lb) Physical Exam: General Appearance: tired appearing, alert and oriented. Skin: no suspicious lesion, no rash, no open sores Head: normocephalic, no obvious masses, lesions, tenderness or abnormalities. Eyes: Anicteric sclera. Pupils are equally round and reactive to light. Extraocular movements are intact. No nystagmus. Fundi benign. Ears: external ears normal, canals with some cerumen impacted right ear only, TM's unable to visualize. Hearing to conversational voice intact. Oropharynx: lips, mucosa, and tongue normal, oropharynx normal. Neck: trachea midline, thyroid without mass or nodularity, thyroid moves normally with swallow, no regional lymphadenopathy. Carotids normal upstroke, no bruit or thrill. Back: axial lumbar pain to palpation of vertebrae starting at L2, no percussion tenderness over spine. Lungs: Chest rise & fall symmetrical, Lungs clear to auscultation. No wheezing or rhonchi. No rales. Abdomen: normal bowel sounds, no mass, non-tender Heart: S1S2, no gallop, no rub, no murmur Ext: no clubbing, cyanosis or edema. Mood: bright affect, speech clear, answers questions appropriately SCREENINGS Health Maintenance Listing Anxiety Screening Urine Albumin:Creatinine Ratio Dilated Retinal Exam Colorectal Cancer Screening Diabetic Foot Exam Annual PCP Team Chronic Disease Visit TEST RESULTS: Lab Studies: Date of lab studies: reviewed with pt. - glucose - potassium - Creatinine, gfr - LFTs Lipid: WBC, H&H, Platelets: A1C: Vitamin D: Other: A/P: ASSESSMENT/PLAN: 1. Lumbar disc disorder with myelopathy - ICD9: 722.73, ICD10: M51.06 (primary diagnosis) - Start duloxetine 30 mg daily - Will need to increase to 60 mg if tolerated 2. Encounter for screening examination for other mental health and behavioral disorders - ICD9: V79.8, ICD10: Z13.39 Stable - ANXIETY SCREENING 3. Screening for diabetic retinopathy - ICD9: V80.2, ICD10: Z13.5 Saw optometry 4. Myofascial muscle pain - ICD9: 729.1, ICD10: M79.18 Ongoing 5. Hyperlipidemia, mixed - ICD9: 272.2, ICD10: E78.2 - Controlled - Counseled on healthy diet and regular exercise 6. Hypertriglyceridemia - ICD9: 272.1, ICD10: E78.1 - Uncontrolled - Counseled on healthy diet and regular exercise 7. Type 2 diabetes mellitus with diabetic neuropathy, without long-term current use of insulin (HCC) - ICD9: 250.60, 357.2, ICD10: E11.40 - Controlled - Continue current medications - DULAGLUTIDE 0.75 MG/0.5 ML SUBCUTANEOUS PEN INJECTOR - GLIMEPIRIDE 4 MG TABLET - BLOOD SUGAR DIAGNOSTIC STRIPS - LANCETS - METFORMIN ER 500 MG TABLET,EXTENDED RELEASE 24 HR - HOME BLOOD GLUCOSE MONITOR Discussed treatment plan and patient voices understanding. Patient's questions answered appropriately. Medications and potential side effects were discussed and patient voices understanding. Return to the office as scheduled or as needed for worsening/no improvement. Olivia Rawls APRN.CNP Follow Up Plans: 6 m documented in this encounter [facility] 08-27-2024 Telephone encounter Note Pt in office today [facility] 08-27-2024 Miscellaneous Notes Pt in office today Please let patient know that his triglycerides are very high and good cholesterol is very low. Guidelines recommend a statin and I prefer rosuvastatin 5 mg daily. Is the statin that is best tolerated. Blood sugars are a little high but much improved. Good job. documented in this encounter [facility] 08-27-2024 Telephone encounter Note Please let patient know that his triglycerides are very high and good cholesterol is very low. Guidelines recommend a statin and I prefer rosuvastatin 5 mg daily. Is the statin that is best tolerated. Blood sugars are a little high but much improved. Good job. [facility] 08-24-2024 Telephone encounter Note Pt notified [facility] 08-24-2024 Miscellaneous Notes Pt notified Orders in Patient is requesting blood work order to be placed for upcoming physical this week 08/27/2024 Please call to advise orders are in at phone [phone] documented in this encounter [facility] 08-24-2024 Telephone encounter Note Orders in [facility] Work Phone: 08-24-2024 Telephone encounter Note Patient is requesting blood work order to be placed for upcoming physical this week 08/27/2024 Please call to advise orders are in at phone [phone] [facility] 08-24-2024 Telephone encounter Note Prescription Refill Information The patient has been identified by name and date of : Yes Caregiver verified no other encounters exist for this prescription request: Yes Caregiver confirmed with patient/requestor that no other refills are due, in the near future, with this provider at this time: Yes The last office visit in the department: 06/26/2024 Does the patient have a future office visit with this provider/department: Yes 08/27/2024 Requested Prescriptions Pending Prescriptions Disp Refills glimepiride (AMARYL) 4 mg tablet 30 tablet 0 Sig: Take 1 tablet by mouth daily with breakfast. Daisha Vargas August 24, 2024 9:59 AM [facility] 08-24-2024 Miscellaneous Notes Prescription Refill Information The patient has been identified by name and date of : Yes Caregiver verified no other encounters exist for this prescription request: Yes Caregiver confirmed with patient/requestor that no other refills are due, in the near future, with this provider at this time: Yes The last office visit in the department: 06/26/2024 Does the patient have a future office visit with this provider/department: Yes 08/27/2024 Requested Prescriptions Pending Prescriptions Disp Refills glimepiride (AMARYL) 4 mg tablet 30 tablet 0 Sig: Take 1 tablet by mouth daily with breakfast. Daisha Vargas August 24, 2024 9:59 AM documented in this encounter [facility] 07-02-2024 Telephone encounter Note Was called and told in January that he needed to scheduled and declined. He did schedule for 07/27/24. [facility] 07-02-2024 Miscellaneous Notes Was called and told in January that he needed to scheduled and declined. He did schedule for 07/27/24. Prescription Refill Information The patient has been identified by name and date of : Yes Caregiver verified no other encounters exist for this prescription request: Yes Caregiver confirmed with patient/requestor that no other refills are due, in the near future, with this provider at this time: Yes The last office visit in the department: 06-26-23 Does the patient have a future office visit with this provider/department: No Requested Prescriptions Pending Prescriptions Disp Refills glimepiride (AMARYL) 4 mg tablet 90 tablet 0 Sig: Take 1 tablet by mouth daily with breakfast. metFORMIN ER (GLUCOPHAGE XR) 500 mg 24 hr tablet 180 tablet 0 Sig: Take 2 tablets by mouth daily with breakfast. Johanny Medrano July 02, 2024 4:13 PM documented in this encounter [facility] 07-02-2024 Telephone encounter Note Prescription Refill Information The patient has been identified by name and date of : Yes Caregiver verified no other encounters exist for this prescription request: Yes Caregiver confirmed with patient/requestor that no other refills are due, in the near future, with this provider at this time: Yes The last office visit in the department: 06-26-23 Does the patient have a future office visit with this provider/department: No Requested Prescriptions Pending Prescriptions Disp Refills glimepiride (AMARYL) 4 mg tablet 90 tablet 0 Sig: Take 1 tablet by mouth daily with breakfast. metFORMIN ER (GLUCOPHAGE XR) 500 mg 24 hr tablet 180 tablet 0 Sig: Take 2 tablets by mouth daily with breakfast. Johanny Medrano July 02, 2024 4:13 PM [facility] 10-06-2023 Miscellaneous Notes FERMÍN 06/26/23 NOV no upcoming appt Patient has been identified by name and date of : Yes Requested Prescriptions Pending Prescriptions Disp Refills glimepiride (AMARYL) 4 mg tablet 90 tablet 0 Sig: Take 1 tablet by mouth daily with breakfast. metFORMIN ER (GLUCOPHAGE XR) 500 mg 24 hr tablet 180 tablet 0 Sig: Take 2 tablets by mouth daily with breakfast. RX INSTRUCTIONS: Patient aware RX will be sent to pharmacy. No need to notify patient. Johanny Medrano documented in this encounter [facility] 06-26-2023 Instructions Krystle Albright PA-C - 06/26/2023 4:34 PM EDT Dulaglutide: Patient drug information Access [employer] Online for additional drug information, tools, and databases. Copyright 3288-6609 [employer]. All rights reserved. (For additional information see Dulaglutide: Drug information) Brand Names: [employer] Brand Names: Charlie Trulicity Warning Drugs like this one have been shown to cause thyroid cancer in some animals. It is not known if this drug may cause thyroid cancer in humans. Call your doctor right away if you have a neck mass, trouble breathing, trouble swallowing, or hoarseness that will not go away. Do not use this drug if you have a health problem called Multiple Endocrine Neoplasia syndrome type 2 (MEN 2), or if you or a family member have had thyroid cancer. What is this drug used for? It is used to lower blood sugar in patients with high blood sugar (diabetes). It is used to lower the chance of heart attack, stroke, and in some people. What do I need to tell my doctor BEFORE I take this drug? If you are allergic to this drug; any part of this drug; or any other drugs, foods, or substances. Tell your doctor about the allergy and what signs you had. If you have any of these health problems: Type 1 diabetes or stomach or bowel problems. If you have ever had pancreatitis. If the patient is a child. Do not give this drug to a child. This is not a list of all drugs or health problems that interact with this drug. Tell your doctor and pharmacist about all of your drugs (prescription or OTC, natural products, vitamins) and health problems. You must check to make sure that it is safe for you to take this drug with all of your drugs and health problems. Do not start, stop, or change the dose of any drug without checking with your doctor. What are some things I need to know or do while I take this drug? Tell all of your health care providers that you take this drug. This includes your doctors, nurses, pharmacists, and dentists. Follow the diet and workout plan that your doctor told you about. Wear disease medical alert ID (identification). Check your blood sugar as you have been told by your doctor. Have blood work checked as you have been told by the doctor. Talk with the doctor. Do not drive if your blood sugar has been low. There is a greater chance of you having a crash. It may be harder to control blood sugar during times of stress such as fever, infection, injury, or surgery. A change in physical activity, exercise, or diet may also affect blood sugar. Kidney problems have happened with drugs like this one. Sometimes, kidney problems have needed to be treated in the hospital. Dialysis has also been needed. Talk with your doctor. Tell your doctor if you have upset stomach, throwing up, diarrhea, or too much sweating. Losing too much fluid may raise your chance of kidney problems. If you are dehydrated, talk with your doctor. This drug may prevent other drugs taken by mouth from getting into the body. If you take other drugs by mouth, you may need to take them at some other time than this drug. Talk with your doctor. Do not share pen or cartridge devices with another person even if the needle has been changed. Sharing these devices may pass infections from one person to another. This includes infections you may not know you have. Tell your doctor if you are , plan on getting , or are breast-feeding. You will need to talk about the benefits and risks to you and the baby. What are some side effects that I need to call my doctor about right away? WARNING/CAUTION: Even though it may be rare, some people may have very bad and sometimes deadly side effects when taking a drug. Tell your doctor or get medical help right away if you have any of the following signs or symptoms that may be related to a very bad side effect: Signs of an allergic reaction, like rash; hives; itching; red, swollen, blistered, or peeling skin with or without fever; wheezing; tightness in the chest or throat; trouble breathing, swallowing, or talking; unusual hoarseness; or swelling of the mouth, face, lips, tongue, or throat. Signs of a pancreas problem (pancreatitis) like very bad stomach pain, very bad back pain, or very bad upset stomach or throwing up. Signs of kidney problems like unable to pass urine, change in how much urine is passed, blood in the urine, or a big weight gain. Change in eyesight. Low blood sugar can happen. The chance may be raised when this drug is used with other drugs for diabetes. Signs may be dizziness, headache, feeling sleepy or weak, shaking, fast heartbeat, confusion, hunger, or sweating. Call your doctor right away if you have any of these signs. Follow what you have been told to do for low blood sugar. This may include taking glucose tablets, liquid glucose, or some fruit juices. What are some other side effects of this drug? All drugs may cause side effects. However, many people have no side effects or only have minor side effects. Call your doctor or get medical help if any of these side effects or any other side effects bother you or do not go away: Not hungry. Feeling tired or weak. It is common to have diarrhea, upset stomach, throwing up, or stomach pain with this drug. Call your doctor if any of these side effects get very bad, bother you, or do not go away. These are not all of the side effects that may occur. If you have questions about side effects, call your doctor. Call your doctor for medical advice about side effects. You may report side effects to your national health agency. How is this drug best taken? Use this drug as ordered by your doctor. Read all information given to you. Follow all instructions closely. It is given as a shot into the fatty part of the skin on the top of the thigh, belly area, or upper arm. Take with or without food. Drink lots of noncaffeine liquids unless told to drink less liquid by your doctor. Take the same day each week. If you will be giving yourself the shot, your doctor or nurse will teach you how to give the shot. Do not use if the solution is cloudy, leaking, or has particles. Do not use if solution changes color. Wash your hands before and after use. Move site where you give the shot each time. If you are also using insulin, you may inject this drug and the insulin in the same area of the body but not right next to each other. Do not mix this drug in the same syringe with insulin. Keep taking this drug as you have been told by your doctor or other health care provider, even if you feel well. Throw away needles in a needle/sharp disposal box. Do not reuse needles or other items. When the box is full, follow all local rules for getting rid of it. Talk with a doctor or pharmacist if you have any questions. What do I do if I miss a dose? Take a missed dose as soon as you think about it. If it is less than 3 days (72 hours) until your next dose, skip the missed dose. Take your next dose on your normal day. Do not take 2 doses at the same time or extra doses. How do I store and/or throw out this drug? Store in a refrigerator. Do not freeze. Do not use if it has been frozen. If needed, you may store at room temperature for up to 14 days. Write down the date you take this drug out of the refrigerator. If stored at room temperature and not used within 14 days, throw this drug away. Store in the original container to protect from light. Protect from heat. Keep all drugs in a safe place. Keep all drugs out of the reach of children and pets. Throw away unused or drugs. Do not flush down a toilet or pour down a drain unless you are told to do so. Check with your pharmacist if you have questions about the best way to throw out drugs. There may be drug take-back programs in your area. General drug facts If your symptoms or health problems do not get better or if they become worse, call your doctor. Do not share your drugs with others and do not take anyone else's drugs. Some drugs may have another patient information leaflet. If you have any questions about this drug, please talk with your doctor, nurse, pharmacist, or other health care provider. If you think there has been an overdose, call your poison control center or get medical care right away. Be ready to tell or show what was taken, how much, and when it happened. Use of UpToDate is subject to the Subscription and License Agreement. Topic 17755 Version 65.0 Rest the joint over then next five days as much as possible, then start gradually increasing activity and stretching as discussed. The joint injection includes a long acting numbing agent. This will wear off over about 12 hours and pain may return. Over then next 2-3 days it should gradually get better as the cortisone effects take over. documented in this encounter [facility] 06-26-2023 History of Present illness Narrative 48 year old male with c/o 2 arthroscopic repairs right knee c/o pain and swelling over last week progressive. No specific injury States Xray in past showed bone on bone arthritis: wants to have knee fixed. Working at a house on incline, walking up hill multiple times a day Feels progression over years with worsening pain. Wearing action brace from previous treatment Wants consult to knee surgeon. Taking mobic from old rx 06/24/2023 Express care visit: cellulitis left little finger, right nee pain XR bilateral knees Right knee: Trace fluid in the right suprapatellar joint space. No acute fracture or dislocation. Mild to moderate medial compartmental joint space narrowing. Miniscule patellofemoral compartmental osteophyte production. Left knee: No acute fracture or dislocation. Mild to moderate medial compartmental joint space narrowing. Miniscule patellofemoral compartmental osteophyte production. Diabetes Mellitus Type 2: Current medications: Glimeperide 4mg daily with breakfast Metformin ER 500mg 2 tabs daily Taking medication as directed consistently? Yes Medication side effects: Medical Issues / Complications: None Checking blood sugars at home? No Watching diet? Has cut back on carbs Physical Activity: Regular Hypoglycemic spells? No Any visual disturbance? No Chest pain? No New numbness, tingling or loss of sensation? none Any recent foot problems, sores or rashes? No Any recent or sudden weight loss? No Change in urination? Yes. If yes: has been less frequent, nocturia x 1 Any recent illness? No Last eye exam: due. Last foot exam: due. HBA1C: Hemoglobin A1C (%) Date Value 06/24/2023 9.8 02/05/2022 12.2 06/15/2021 7.4 08/14/2019 6.8 ) CMP: Glucose 205 04/19/2023 BUN 10 04/19/2023 Creatinine 0.65 04/19/2023 Sodium 141 04/19/2023 Potassium 4.0 04/19/2023 Chloride 107 04/19/2023 CO2 23 04/19/2023 Protein, Total 6.7 04/19/2023 Albumin 4.0 04/19/2023 Calcium 9.1 04/19/2023 Alkaline Phosphatase 69 04/19/2023 Bilirubin, Total 0.3 04/19/2023 AST 20 04/19/2023 ALT 26 04/19/2023 Last 2 Encounter Wt Readings: Date: Wt: 06/26/2023 108.4 kg (239 lb) 06/24/2023 110.7 kg (244 lb) Infrequent alcohol. Diet fair Weight continues to increase Cutting out pop, drinking more water. HISTORIES FAMILY HISTORY Problem Relation Age of Onset Diabetes Father Diabetes Maternal Grandfather Headache Maternal Aunt migraines PAST MEDICAL HISTORY Diagnosis Date Abscess gluteal Acute diverticulitis 05/20/2013 Acute meniscal tear of left knee medial Back pain Intervertebral disc herniation Pilonidal cyst with abscess 08/25/2012 Preop exam for internal medicine PAST SURGICAL HISTORY Procedure Laterality Date ARTHROSCOPY KNEE DIAGNOSTIC W/WO SYNOVIAL BX SPX 12/13/2014 Arthroscopy, knee left, partial medial meniscectomy PAST SURGICAL HISTORY OF 02-28-10 discectomy, lumbar REVJ TOT KNEE ARTHRP FEM&ENTIRE TIBIAL COMPONE 2006 torn maniscus right knee Subcutaneous nodule 01/24/10 fatty tissue removed from right shoulder Social History Tobacco Use Smoking status: Every Day Packs/day: 0.50 Years: 15.00 Total pack years: 7.50 Types: Cigarettes Smokeless tobacco: Never Tobacco comments: down to 4-5 cigs per day Substance Use Topics Alcohol use: Yes Comment: occasional Drug use: No ACTIVE PROBLEM LIST Lumbar Disc Disorder With Myelopathy Tobacco Abuse Lumbosacral Spondylosis Without Myelopathy Lumbosacral Neuritis Herniated Nucleus Pulposus, Lumbar Intervertebral Disc Herniation Type 2 Diabetes Mellitus With Diabetic Neuropathy, Without Long-Term Current Use of Insulin (Hcc) Postlaminectomy Syndrome Myofascial Muscle Pain Depressive Disorder Hyperlipidemia, Mixed Low Hdl (Under 40) Hypertriglyceridemia Current Outpatient Medications Medication Sig Dispense Refill cephALEXin (KEFLEX) 500 mg capsule Take 1 capsule by mouth three times daily for 7 days. 21 capsule 0 glimepiride (AMARYL) 4 mg tablet Take 1 tablet by mouth daily with breakfast. 90 tablet 0 metFORMIN ER (GLUCOPHAGE XR) 500 mg 24 hr tablet Take 2 tablets by mouth daily with breakfast. 180 tablet 0 COMPOUNDED PRESCRIPTION Check blood sugar in am fasting and before dinner 1 Device 0 blood sugar diagnostic (BLOOD GLUCOSE TEST) test strip Test blood sugar(s) 4 times daily. Dx: Type 2 DM - Uncontrolled E11.65 Insulin: No 50 Strip 11 Lancets lancets Test blood sugar(s) 4 times daily. Dx: Type 2 DM - Uncontrolled E11.65 Insulin: No 100 Each 11 No current facility-administered medications for this visit. HEPATITIS B(1 of 3 - 3-dose series) Never done COVID-19 VACCINE(1) Never done PNEUMOCOCCAL(1 - PCV) Never done DTAP,TDAP,TD(1 - Tdap) Never done URINE ALBUMIN:CREATININE RATIO due on 04/29/2018 DILATED RETINAL EXAM due on 01/05/2019 COLORECTAL CANCER SCREENING Never done DIABETIC FOOT EXAM due on 07/13/2022 ANNUAL PCP TEAM CHRONIC DISEASE VISIT due on 02/05/2023 EXAM: BP 116/70 Pulse 68 Wt 108.4 kg (239 lb) SpO2 97% BMI 30.69 kg/m Pleasant overweight adult man in no acute distress. Alert and oriented all spheres. Normal affect and cognition. Speech normal. No deficits to learning or comprehension. Skin warm, dry, pink to lips and nailbeds. Normal turgor. Respirations regular and unlabored. HEENT: NCAT. No scleral icterus or conjunctival injection. TM's clear. Nose and oropharynx free from injection or lesion. Oral membranes moist and pink. No cervical lymph nodes. Thyroid non-tender, no masses, or enlargement. Carotids pulses 2+/4+ without bruits. Neck veins flat. Right knee in action brace: removed for exam. Moderate infrapatellar effusion and popliteal swelling. Tender patellar tendon insertion. Pain attempts with varus/ valgus stress. No shift on Fabiola or anterior drawer. Extrem: no clubbing or cyanosis. Edema: none. Extremities are warm and pink with prompt capillary refill. ASSESSMENT/PLAN: 1. Effusion of right knee - ICD9: 719.06, ICD10: M25.461 Options for immediate treatment were discussed: patient requests intervention Discussed steroid injection risks and benefits as well as options for PT or orthopedic referral. Wishes to proceed with steroid injection, site, ID, allergies verified. Questions and concerns addressed. Consent form signed Area cleansed with chlorprep, sterile field maintained. Injected Celestone 6mg/1ml/ mixed with Xylocaine 1% 2ml and Bupivacaine 0.75% 2ml into right knee lateral tibial notch. Patient initially jerked knee away Had improvement in ROM and pain within a few minutes. Sterile Bandaid applied. 2. S/P arthroscopic knee surgery - ICD9: V45.89, ICD10: Z98.890 - CONSULT TO ORTHOPAEDICS 3. Chronic pain of both knees - ICD9: 719.46, 338.29, ICD10: M25.561, M25.562, G89.29 - CONSULT TO ORTHOPAEDICS 4. Type 2 diabetes mellitus with diabetic neuropathy, without long-term current use of insulin (HCC) - ICD9: 250.60, 357.2, ICD10: E11.40 - Control undetermined, due for labs - Continue current medications - Start dulaglutide (Trulicity) - DULAGLUTIDE 0.75 MG/0.5 ML SUBCUTANEOUS PEN INJECTOR - ALBUMIN/CREAT RATIO RND UR - HGB A1C - BASIC METABOLIC PNL Educated on new medication administration, warnings and cautions, common side effects, anticipated duration or therapy, and instructions on cessation management to avoid risks if stops medication. Patient choice was discussed in shared decision making. Advised steroid may elevate sugars: asked to get labs today Discussed complications with avoidant care- agrees to follow up q3 months until DM2 controlled with a1c < 7% M Joseph Albright, PA-C documented in this encounter [facility] 07-13-2021 History of Present illness Narrative Radiology Service Progress Note PATIENT NAME: Daryn Hayward DATE OF SERVICE: July 13, 2021 TIME: 12:38 PM PATIENT IDENTITY VERIFICATION COMPLETED USING TWO (2) IDENTIFIERS: Name and Date of confirmed by patient verbally. FALL SCREENING: Has the patient had 2 falls in the last year or 1 fall with injury or currently using an Ambulatory Assistive Device (Walker, Cane, Wheelchair, Crutches, etc.)? No PATIENT GENDER DATA: Male PATIENT RELEVANT IMPLANT DATA REVIEWED: Not Applicable RADIOLOGY DEPARTMENT: General X-ray: Exam(s) Completed: Spine X-Ray(s): Lumbar AP / LAT / L5-S1 Lower Extremity X-Ray(s): Knee, AP / Lat / Tunne / Merchant Bilateral and Wt. Bearing PERIPHERAL IV DATA: Not applicable SIGNED BY: Michelle Greer RT(R) July 13, 2021 12:38 PM documented in this encounter [facility] 08-27-2016 History of Past i llness Narrative Problem Noted Date Diagnosed Date Resolved Date Lumbar strain 08/27/2016 06/15/2021 Other tear of cartilage or m eniscus of knee, current 12/13/2014 12/13/2014 Acute diverticulitis 05/20/2013 021 Pilonidal cyst with abscess 08/25/2012 06/15/2021 Preop exam for internal medicine 06/15/2021 documented as of this encounter (statuses as of 10/07/2023) [facility] History of Past illness Narrative* Problem Noted Date Diagnosed Date Resolved Date Lumbar strain 08/27/2016 06/15/2021 Other tear of cartilage or m eniscus of knee, current 12/13/2014 12/13/2014 Acute diverticulitis 05/20/2013 021 Pilonidal cyst with abscess 08/25/2012 06/15/2021 Preop exam for internal medicine 06/15/2021 documented as of this encounter (statuses as of 06/28/2023) [facility] [place] noteNo assessment information availableWOhio[facility] Work Phone: Evaluation note* Diagnosis Type 2 diabetes mellitus with diabetic neuropathy, without long-term current use of insulin (HCC) [facility] [place] [facility]* Diagnosis Type 2 diabetes mellitus with diabetic neuropathy, without long-term current use of insulin (HCC) [facility]* Diagnosis Chronic pain of right knee [facility]* Diagnosis Type 2 diabetes mellitus with diabetic neuropathy, without long-term current use of insulin (HCC)- Primary Hypertriglyceridemia Pure hyperglyceridemia Hyperlipidemia, mixed Mixed hyperlipidemia Low HDL (under 40) Lipoprotein deficiencies Depressive disorder Depressive disorder, not elsewhere classified [facility] [place] [facility]* Diagnosis Diabetes mellitus due to underlying condition with hyperosmolarity without coma, without long-term current use of insulin ([facility])- Primary [facility]* Diagnosis Lumbar disc disorder with myelopathy- Primary Intervertebral lumbar disc disorder with myelopathy, lumbar region Encounter for screening examination for other mental health and behavioral disorders Screening for diabetic retinopathy Screening for other eye conditions Myofascial muscle pain Mylagia and myositis, unspecified Hyperlipidemia, mixed Mixed hyperlipidemia Hypertriglyceridemia Pure hyperglyceridemia Type 2 diabetes mellitus with diabetic neuropathy, without long-term current use of insulin (HCC) Chronic fatigue Other malaise and fatigue [facility] [place] [facility]* Diagnosis Depressive disorder Depressive disorder, not elsewhere classified [facility] [place] [facility]* Diagnosis Chronic pain of both knees Post laminectomy syndrome Postlaminectomy syndrome, unspecified region [facility] [place] [facility]* Diagnosis Effusion of right knee Effusion of lower leg joint S/P arthroscopic knee surgery Other postprocedural status Chronic pain of both knees Type 2 diabetes mellitus with diabetic neuropathy, without long-term current use of insulin (HCC) [facility] encounter [facility] [place] [facility]* Diagnosis Type 2 diabetes mellitus with diabetic neuropathy, without long-term current use of insulin (HCC) documented in this [facility] Additional Instructions X-ray foot does not show any radiopaque foreign bodies. Reported antibiotics help recently therefore taking understand the risks of side effects with antibiotics. Follow- up with Dr. Blount for further imaging or testing as an outpatient for possible foreign bodies. [facility] Work Phone: Reason for referral (narrative)* Diagnostic Procedure Only (Urgent) - Closed Specialty Diagnoses / Procedures Referred By Contac t Referred To Contact XR IMAGING Diagnoses Chronic pain of right knee Procedures XR KNEE GENERAL 4V AP BOTH/PA BOTH/LAT/MERC RIGHT RADIOLOGIC EXAM KNEE COMPLETE 4/MORE VIEWS Concha Ervin, EDVIN [address] [place] [address] X[facility] [place] [address] Referral ID Status Reason Start Date Expiration Date V isits Requested Visits Authorized [id number] Closed Auto-Generate d Referral 06/24/2023 07/23/2024 1 1 [facility] for referral (narrative)* Diagnostic Procedure Only (Routine) - Authorized Specialty Diagnoses / Procedures Referred By Contac t Referred To Contact [facility] Diagnoses Chronic fatigue Procedures HOME SLEEP APNEA TEST (HSAT) SLEEP STD AIRFLOW HRT RATE&O2 SAT EFFORT UNATT Olivia Rawls APRN.[employer] [address] [place] [address] [facility] [place] [address] [id number] Referral ID Status Reason Start Date Expiration Date Visits Requested Visits Authorized [id number] Authorized Auto-Generat ed Referral 08/28/2024 08/27/2025 1 1 [facility] for referral (narrative)* Diagnostic Procedure Only (Routine) - Closed Specialty Diagnoses / Procedures Referred By Contac t Referred To Contact XR IMAGING Diagnoses Post laminectomy syndrome Procedures XR LUMBAR GENERAL 3V AP/LAT/L5-S1 X-RAY L-S SPINE AP/LATERAL Krystle Albright PA-C [address] [place] [address] [place] [address] Referral ID Status Reason Start Date Expiration Date V isits Requested Visits Authorized Closed Auto-Generate d Referral 07/13/2021 08/12/2022 1 1 * Diagnostic Procedure Only (Routine) - Closed Specialty Diagnoses / Procedures Referred By Contac t Referred To Contact XR IMAGING Diagnoses Chronic pain of both knees Procedures XR KNEE GENERAL 4V AP BOTH/PA BOTH/LAT/MERC BILAT KNEE AP-WGT/LAT/MIGUEL ANGELT Krystle Albright PA-C [address] [place] [address] [place] [address] Referral ID Status Reason Start Date Expiration Date V isits Requested Visits Authorized [id number] Closed Auto-Generate d Referral 07/13/2021 08/12/2022 1 1 [facility] for visit Narrative* Diagnostic Procedure Only (Urgent) - Closed Specialty Diagnoses / Procedures Referred By Contac t Referred To Contact XR IMAGING Diagnoses Chronic pain of right knee Procedures XR KNEE GENERAL 4V AP BOTH/PA BOTH/LAT/MERC RIGHT RADIOLOGIC EXAM KNEE COMPLETE 4/MORE VIEWS Concha Ervin PA-C [address] [place] [address] [place] [address] Referral ID Status Reason Start Date Expiration Date V isits Requested Visits Authorized [id number] Closed Auto-Generate d Referral 06/24/2023 07/23/2024 1 1 [facility] Summary Purpose Family History No Family History Records FoundNo Family History Records FoundNo Family History Records FoundNo Family History Records FoundNo Family History Records FoundNo Family History Records Found Advance Directives No Advanced Directives Records FoundDocuments on File Type Date Recorded Patient Tar Heater Expl anation Advance Directives and Livin g Will 06/08/2019 10:51 AM Advance Directive Response Recorded Date/ Time Living Will No November 19 8:54pm Power of Creel Clerk No November 19, 2022 8:54pm Advance Directive Response Recorded Date/ Time Living Will No December 18 11:30am Power of Creel Clerk No December 18, 2022 11:30am Discharge Instructions * Attachments The following attachments cannot be sent through Care Everywhere. * Hyperglycemia: General Info (Kosovan) documented in this encounter Assessments Diagnosis Hyperglycemia- Primary Other abnormal glucose Chief Complaint and Reason for Visit Chief Complaint CELLULITIS Chief Complaint CELLULITIS RIGHT FOOT PAIN Reason for Referral Specialty Diagnoses / Procedures Referred By Contac t Referred To Contact Orthopedics Diagnoses Chronic pain of both knees S/P arthroscopic knee surgery Procedures CONSULT TO ORTHOPAEDICS OFFICE/OUTPATIENT [facility] 60-74 MINUTES Krystle Albright PA-C [address] [place] [address] Referral ID Status Reason Start Date Expiration Date Visits Requested Visits Authorized [id number] Pending Review PCP Requested Referral 06/26/2023 06/25/2024 1 1 Medications Administered Section Inactive Administered Medications - up to 3 most recent administrations Medication Order MAR Action Action Date Dose Rate Site betamethasone acetate-betamethasone sodium phosphate 6 mg INTRA-ARTICULAR, ONCE, 1 dose, On Fri06/27/23 at 1900, Bupivacaine 0.75% 2ml Xylocaine 1% 2ml EXP: Given 06/27/2023 6:40 PM EDT Knee, Right Additional Source Comments (unrecognized sect ion and content) No Status Records FoundNo Status Records FoundNo Status Records FoundNo Status Records FoundNo Status Records FoundNo Status Records Found INFORMATION SOURCE (unrecogn ized section and content) DATE CREATED AUTHOR 01/14/2019 [facility] DATE CREATED AUTHOR AUTHOR'S ORGANIZ ATION 10/12/2019 [facility] ([place] DATE CREATED AUTHOR AUTHOR'S ORGANIZ ATION 12/24/2020 [facility] DATE CREATED AUTHOR AUTHOR'S ORGANIZ ATION 09/22/2022 [facility] DATE CREATED AUTHOR AUTHOR'S ORGANIZ ATION 12/29/2022 [facility] DATE CREATED AUTHOR AUTHOR'S ORGANIZ ATION 02/26/2025 [facility] Reason for Visit (unrecogniz ed section and content) Reason Comments Hyperglycemia Reason Comments Refill Request Reason Onset Date Comments Refill Request 07/02/2024 Reason Comments Orders Reason Comments Physical Reason Comments Results Specialty Diagnoses / Procedures Referred By Kary t Referred To Contact [facility] Diagnoses med refills, depression Procedures consult, test, treat Krystle Albright PA-C [address] [facility] [address] [place] [address] [place] [address] Referral ID Status Reason Start Date Expiration Date V isits Requested Visits Authorized [id number] Closed Financial Clearance Required - Self Pay Patient Cleared - Qualified HCAP/501/FA 06/13/2021 09/11/2021 99 99 Reason Comments patient needs rx for glucose meter Reason Comments Knee Pain Was seen in urgent c are on Tu and needs referred to ortho. Shruthi Murillo MD - 06/08/2019 10:37 AM Michelet Canales RN - 06/08/2019 10:25 AM Michelet Canales RN - 06/08/2019 10:18 AM EDT ED Notes (unrecognized secti on and content) ED PROVIDER NOTE [facility] EM[facility]ENCY [facility]PART[facility] NAME: Daryn Hayward AGE: 44 y.o. : 1975 VISIT DATE: 06/08/2019 CSN: [id number] PCP: Physician No Chief Complaint Patient presents with Hyperglycemia This is a 44-year-old gentleman who has history of type 2 diabetes who has not taken his oral diabetes medications in 2 days. Patient states that he has been out of town and he forgot his medication at home. This morning he started feeling little lightheaded which is usually how he feels when his blood sugars up. No nausea no vomiting no abdominal pain no chest pain. Patient notes he has had a blood sugar as high as 750 in the past. Patient tells me he takes glipizide twice daily. Past Medical History: Diagnosis Date Diabetes mellitus (HCC) Past Surgical History: Procedure Laterality Date KNEE SURGERY Bilateral SPINAL FUSION X2 History reviewed. No pertinent family history. Social History Socioeconomic History Marital status: Spouse name: Not on file Number of children: Not on file Years of education: Not on file Highest education level: Not on file Occupational History Not on file Social Needs Financial resource strain: Not on file Food insecurity: Worry: Not on file Inability: Not on file Transportation needs: Medical: Not on file Non-medical: Not on file Tobacco Use Smoking status: Current Every Day Smoker Smokeless tobacco: Never Used Substance and Sexual Activity Alcohol use: Never Frequency: Never Drug use: Never Sexual activity: Not on file Lifestyle Physical activity: Days per week: Not on file Minutes per session: Not on file Stress: Not on file Relationships Social connections: Talks on phone: Not on file Gets together: Not on file Attends voodoo service: Not on file Active member of club or organization: Not on file Attends meetings of clubs or organizations: Not on file Relationship status: Not on file Other Topics Concern Not on file Social History Narrative Not on file Previous Medications Medication Sig glimepiride (AMARYL) 4 MG tablet Take 4 mg by mouth every morning before breakfast . No Known Allergies Review of Systems Constitutional: Negative for chills and fever. HENT: Negative for congestion and rhinorrhea. Eyes: Negative for photophobia and visual disturbance. Respiratory: Negative for cough and shortness of breath. Cardiovascular: Negative for chest pain and leg swelling. Gastrointestinal: Negative for abdominal pain, diarrhea, nausea and vomiting. Genitourinary: Negative for decreased urine volume and flank pain. Musculoskeletal: Negative for myalgias and neck stiffness. Skin: Negative for color change and rash. Neurological: Positive for light-headedness. Negative for facial asymmetry and headaches. Psychiatric/Behavioral: Negative for self-injury and suicidal ideas. Patient Vitals for the past 24 hrs: BP Temp Temp src Pulse Resp SpO2 06/08/19 1026 (!) 151/96 98.7 F (37.1 C) Oral 89 16 97 % Physical Exam Constitutional: He is oriented to person, place, and time. He appears well- developed and well-nourished. Non-toxic appearance. HENT: Head: Normocephalic and atraumatic. Eyes: EOM are normal. Pupils are equal, round, and reactive to light. Neck: Normal range of motion. Neck supple. Cardiovascular: Normal rate, regular rhythm, intact distal pulses and normal pulses. Pulmonary/Chest: Effort normal and breath sounds normal. Abdominal: Soft. He exhibits no distension. There is no tenderness. Musculoskeletal: Normal range of motion. He exhibits no tenderness. Right lower leg: He exhibits no edema. Left lower leg: He exhibits no edema. Neurological: He is alert and oriented to person, place, and time. Skin: Skin is warm and dry. Capillary refill takes less than 2 seconds. Psychiatric: He has a normal mood and affect. His behavior is normal. Nursing note and vitals reviewed. Laboratory & Radiographic Imaging (if done): Results for orders placed or performed during the hospital encounter of 06/08/19 BMP Result Value Ref Range Sodium 137 135 - 145 mmol/L Potassium 4.0 3.5 - 5.1 mmol/L Chloride 104 98 - 108 mmol/L Bicarbonate 26 21 - 32 mmol/L Anion Gap 11 10 - 20 mmol/L Glucose 256 (H) 65 - 99 mg/dL BUN 16 8 - 25 mg/dL Creatinine 0.96 0.50 - 1.30 mg/dL eGFR 97 >=60 mL/min/1.73 m2 BUN/Creatinine Ratio 16.7 10.0 - 20.0 Calcium 8.4 8.4 - 10.2 mg/dL POC Glucose Result Value Ref Range Glucose 300 (H) 65 - 99 mg/dL CBC Auto Differential Result Value Ref Range WBC 7.28 4.50 - 11.00 K/mcL RBC 4.77 4.50 - 5.90 M/mcL Hemoglobin 15.1 13.5 - 17.5 g/dL Hematocrit 41.9 41.0 - 53.0 % MCV 87.8 80.0 - 100.0 fL MCH 31.7 26.0 - 34.0 pg MCHC 36.0 31.0 - 37.0 g/dL Platelets 185 150 - 400 K/mcL RDW - CV 12.4 11.6 - 14.8 % MPV 10.4 9.0 - 15.5 fL Neutrophils 55.0 % Lymphocytes 34.1 % Monocytes 8.1 % Eosinophils 1.5 % Basophils 0.8 % IG Percent 0.50 % Neutrophils Abs 4.00 1.70 - 7.00 K/mcL Lymphocytes Abs 2.48 0.90 - 4.00 K/mcL Monocytes Abs 0.59 0.30 - 0.90 K/mcL Eosinophils Abs 0.11 0.00 - 0.50 K/mcL Basophils Abs 0.06 0.00 - 0.30 K/mcL IG Absolute 0.04 0.00 - 0.30 K/mcL Nucleated RBC 0.0 % Nucleated RBC Abs 0.00 0.00 - 0.00 K/mcL No orders to display Procedures MDM Number of Diagnoses or Management Options Hyperglycemia: Diagnosis management comments: No signs of diabetic ketoacidosis. Will refill patient's prescription for his oral antihyperglycemic. The patient has been informed that they may have pre-hypertension or hypertension based on a blood pressure reading in the Emergency Department. I recommend that the patient call the primary care provider listed on their discharge instructions or a physician of their choice as soon as possible to arrange follow-up in the next 4 weeks for further evaluation of possible pre-hypertension or hypertension. . Clinical Impression: SNOMED CT(R) 1. Hyperglycemia HYPERGLYCEMIA ED Disposition ED Disposition Condition Comment Discharge Stable Daryn Hayward discharged to home/self care in stable condition. Follow-up Information 1. Please follow up. See your doctor this week Contact information for after-discharge care Follow-up information has not been specified. New Prescriptions glipiZIDE (GLUCOTROL) 5 MG tablet Take 1 (one) tablet (5 mg total) by mouth 2 (two) times a day before meals . Shruthi Murillo MD 06/08/19 1141 PT HAS BEEN FEELING FLOATY TODAY AND HAS NOT BEEN TAKING HIS DIABETES MEDICATION, BG IS 300 ON ARRIVAL, PT ALERT AND ORIENTED Bed: 17 Expected date: Expected time: Means of arrival: Comments: next documented in this encounter Goals (unrecognized section and content) Goals may be documented in a n alternate sectionGoals may be documented in an alternate section Care Teams (unrecognized sec tion and content) Team Status: Active Member Role Status Dates SCARLETT Garner Family Provider Active SCARLETT Garner Primary Care Provider Active Team Status: Inactive Member Role Status Dates SCARLETT Garner Primary Care Provider Active Shayne Duffy MD Attending Provider, Emergency Provid er Active Team Status: Inactive Member Role Status Dates SCARLETT Garner Primary Care Provider Active Dr. Demarcus Le , DO Emergency Provider Active Multiple Wire Sawyer Relationship Specialty Start Date End Date Krystle Albright PA-C [address] [place] [address] PCP - General Family Medicine 07/28/19 Multiple Wire Sawyer Relationship Specialty Start Date End Date Krystle Albright PA-C [address] [place] [address] PCP - General Family Medicine 07/28/19 Multiple Wire Sawyer Relationship Specialty Start Date End Date Krystle Albright PA-C [address] [place] [address] PCP - General Family Medicine 07/28/19 Multiple Wire Sawyer Relationship Specialty Start Date End Date Krystle Albright PA-C [address] [place] [address] PCP - General Family Medicine 07/28/19 Multiple Wire Sawyer Relationship Specialty Start Date End Date Krystle Albright PA-C [address] [place] [address] PCP - General Family Medicine 07/28/19 Multiple Wire Sawyer Relationship Specialty Start Date End Date Krystle Albright PA-C [address] [place] [address] PCP - General Family Medicine 07/28/19 Multiple Wire Sawyer Relationship Specialty Start Date End Date Krystle Albright PA-C [address] [place] [address] PCP - General Family Medicine 07/28/19 Multiple Wire Sawyer Relationship Specialty Start Date End Date Krystle Albright PA-C [address] [place], [place] [address] PCP - General Family Medicine 07/28/19 Multiple Wire Sawyer Relationship Specialty Start Date End Date Krystle Albright PA-C [address] [place], [place] [address] PCP - General Family Medicine 07/28/19 Multiple Wire Sawyer Relationship Specialty Start Date End Date Krystle Albright PA-C [address] [place], [place] [id number] PCP - General Family Medicine 07/28/19 Source Comments (unrecognize d section and content) In the event this informatio n is protected by the Federal Confidentiality of Alcohol and Drug Abuse Patient Records regulations: The Federal rules restrict any use of the information to criminally investigate or prosecute any alcohol or drug abuse patient.[facility] the event this information is protected by the Federal Confidentiality of Alcohol and Drug Abuse Patient Records regulations: The Federal rules restrict any use of the information to criminally investigate or prosecute any alcohol or drug abuse patient.[facility] the event this information is protected by the Federal Confidentiality of Alcohol and Drug Abuse Patient Records regulations: The Federal rules restrict any use of the information to criminally investigate or prosecute any alcohol or drug abuse patient.[facility] the event this information is protected by the Federal Confidentiality of Alcohol and Drug Abuse Patient Records regulations: The Federal rules restrict any use of the information to criminally investigate or prosecute any alcohol or drug abuse patient.[facility]In the event this information is protected by the Federal Confidentiality of Alcohol and Drug Abuse Patient Records regulations: The Federal rules restrict any use of the information to criminally investigate or prosecute any alcohol or drug abuse patient.[facility] the event this information is protected by the Federal Confidentiality of Alcohol and Drug Abuse Patient Records regulations: The Federal rules restrict any use of the information to criminally investigate or prosecute any alcohol or drug abuse patient.[facility]In the event this information is protected by the Federal Confidentiality of Alcohol and Drug Abuse Patient Records regulations: The Federal rules restrict any use of the information to criminally investigate or prosecute any alcohol or drug abuse patient.[facility] the event this information is protected by the Federal Confidentiality of Alcohol and Drug Abuse Patient Records regulations: The Federal rules restrict any use of the information to criminally investigate or prosecute any alcohol or drug abuse patient.[facility]In the event this information is protected by the Federal Confidentiality of Alcohol and Drug Abuse Patient Records regulations: The Federal rules restrict any use of the information to criminally investigate or prosecute any alcohol or drug abuse patient.[facility]In the event this information is protected by the Federal Confidentiality of Alcohol and Drug Abuse Patient Records regulations: The Federal rules restrict any use of the information to criminally investigate or prosecute any alcohol or drug abuse patient.[facility] HealthIn the event this information is protected by the Federal Confidentiality of Alcohol and Drug Abuse Patient Records regulations: The Federal rules restrict any use of the information to criminally investigate or prosecute any alcohol or drug abuse patient.[facility] HealthIn the event this information is protected by the Federal Confidentiality of Alcohol and Drug Abuse Patient Records regulations: The Federal rules restrict any use of the information to criminally investigate or prosecute any alcohol or drug abuse patient.[facility] HealthIn the event this information is protected by the Federal Confidentiality of Alcohol and Drug Abuse Patient Records regulations: The Federal rules restrict any use of the information to criminally investigate or prosecute any alcohol or drug abuse patient.[facility] FOR RECORDS PERTAINING TO PATIENTS WHO ARE OR HAVE BEEN ENROLLED IN A CHEMICAL DEPENDENCY/SUBSTANCEABUSE PROGRAM, SOME INFORMATION MAY BE OMITTED. This clinical summary was aggregated from multiple sources. Caution should be exercised in using it in the provision of clinical care. This summary normalizes information from multiple sources, and as a consequence, information in this document may materially change the coding, format and clinical context of patient data. In addition, data may be omitted in some cases. CLINICAL DECISIONS SHOULD BE BASED ON THE PRIMARY CLINICAL RECORDS. [facility] [employer] [facility]. provides no warranty or guarantee of the accuracy or completeness of information in this document.
[2025-08-03 02:44] VITALS: BP 112/87; PULSE 98; RESP 18; TEMP 36.6; O2SAT 100
== END 2025-08-03 02:46 | disposition home or self-care (01) ==
PROVIDERS: Emergency Provider Emergency Medicine; Visit Provider Emergency Medicine
DX: S90.562A Insect bite (nonvenomous), left ankle, initial encounter (principal); E11.9 Type 2 diabetes mellitus without complications; Y99.0 Civilian activity done for income or pay; W57.XXXA Bitten or stung by nonvenomous insect and other nonvenomous arthropods, initial encounter; Y92.89 Other specified places as the place of occurrence of the external cause; L03.116 Cellulitis of left lower limb; F17.210 Nicotine dependence, cigarettes, uncomplicated; Z79.84 Long term (current) use of oral hypoglycemic drugs
CPT/HCPCS: 99283